=== PATIENT | female | born 1960 | race Caucasian/White ===

== ENCOUNTER 2021-08-08 01:20 | Emergency (ER) | payer OTHER ==
[~2021-08-08] VITALS: Ht 165.1 cm; Wt 86.6 kg
[2021-08-08] MEDS ORDERED: LISI20 PO (01:42)
[2021-08-08 02:28] LABS: Source, Urine Clean Catch
[2021-08-08 02:35] LABS: BASOPHILS ABSOLUTE AUTO 0.07 K/mm3 (0.00-0.23); BASOPHILS PERCENT AUTO 1 % (0-2); Bilirubin, Urine Neg (Neg); Blood, Urine 4+ (Neg); EOSINOPHILS PERCENT AUTO 1 % (0-6); Glucose Qualitative, Urine Neg (Neg); Hematocrit 45.1 % (33.0-51.0); Hemoglobin 15.4 g/dL (11.5-16.0); IMMATURE GRAN ABSOLUTE AUTO 0.03 K/mm3 (0.00-0.10); IMMATURE GRAN PERCENT AUTO 0 % (0-1); Ketones, Urine 1+ (Neg); LYMPHOCYTES ABSOLUTE AUTO 1.44 K/mm3 (0.84-5.20); LYMPHOCYTES PERCENT AUTO 19 % (21-46); Leukocyte Esterase, Urine 3+ (Neg); MONOCYTES ABSOLUTE AUTO 0.44 K/mm3 (0.16-1.47); MONOCYTES PERCENT AUTO 6 % (4-13); Mean Corpuscular HGB 32.9 pg (26.0-34.0); Mean Corpuscular HGB Conc 34.1 g/dL (31.5-36.5); Mean Corpuscular Volume 96 fL (80-100); Mean Platelet Volume 9.6 fL (9.1-12.4); NEUTROPHILS ABSOLUTE AUTO 5.58 K/mm3 (1.96-9.15); NEUTROPHILS PERCENT AUTO 73 % (41-73); Nitrite, Urine Neg (Neg); Platelet Count 231 K/mm3 (150-400); Protein, Urine 1+ (Neg); RDW Coefficient Variation 11.8 % (11.7-14.2); RDW Standard Deviation 41.9 fL (35.1-46.3); Red Blood Cell Count 4.68 M/mm3 (3.80-5.20); Specific Gravity, Urine 1.015 (1.003-1.022); Urobilinogen, Urine NORM (Normal); White Blood Cell Count 7.66 K/mm3 (4.00-11.30)
[2021-08-08 02:40] LABS: Amorphous Light (0-Heavy); Appearance, Urine Hazy (Clear); Bacteria Mod /hpf; Color, Urine Yellow (P-Yellow); Red Blood Cells, Urine 0-2 /hpf (0-2); Squamous Epithelial Cells Few /hpf (Few)
[2021-08-08 02:48] LABS: Alanine Aminotransfer (ALT/SGP 28 U/L (12-78); Albumin, Blood 4.1 g/dL (3.4-5.0); Albumin/Globulin Ratio 1.1 (0.8-1.8); Alk Phos 89 U/L (50-136); Anion Gap 6 mmol/L (6-16); Aspartate Aminotrans (AST/SGOT 26 U/L (12-37); Bilirubin, Total 0.6 mg/dL (0.1-1.0); Blood Urea Nitrogen 12 mg/dL (8-24); Bun/Creatinine Ratio 15.2 (12.0-20.0); CO2, Blood 26 mmol/L (21-32); Calcium, Blood 9.2 mg/dL (8.5-10.1); Chloride, Blood 99 mmol/L (98-108); Creatinine, Blood 0.79 mg/dL (0.40-1.00); Globulin, Blood 3.7 g/dL (2.2-4.0); Glomerular Filtration Rate >60 (60-); Glucose, Blood 107 mg/dL (70-99); Potassium, Blood 4.4 mmol/L (3.5-5.5); Sodium, Blood 131 mmol/L (136-145); Total Protein, Blood 7.8 g/dL (6.4-8.2)
== END 2021-08-08 07:03 | disposition home or self-care (01) ==
LOC: ER 01:20
PROVIDERS: Student in an Organized Health Care Education/Training Program
DX: M54.9 Dorsalgia, unspecified (principal); R31.29 Other microscopic hematuria; F17.210 Nicotine dependence, cigarettes, uncomplicated; I10 Essential (primary) hypertension; Z79.899 Other long term (current) drug therapy; Z88.5 Allergy status to narcotic agent
CPT/HCPCS: 36415; 74176; 80053; 81001; 83690; 85025; 87086; 96374; 96375; 99284-25; A9270; J1885; J2405

== ENCOUNTER 2023-01-10 11:01 | Emergency (ER) | payer OTHER ==
[~2023-01-10] VITALS: Ht 165.1 cm; Wt 88.5 kg
[~2023-01-10 11:01] MED LIST: LISI20 PO
[2023-01-10 12:09] LABS: BASOPHILS ABSOLUTE AUTO 0.04 K/mm3 (0.00-0.23); BASOPHILS PERCENT AUTO 1 % (0-2); EOSINOPHILS ABSOLUTE AUTO 0.02 K/mm3 (0.00-0.68); EOSINOPHILS PERCENT AUTO 0 % (0-6); Hematocrit 38.3 % (33.0-51.0); IMMATURE GRAN ABSOLUTE AUTO 0.03 K/mm3 (0.00-0.10); IMMATURE GRAN PERCENT AUTO 0 % (0-1); LYMPHOCYTES PERCENT AUTO 17 % (21-46); MONOCYTES ABSOLUTE AUTO 0.64 K/mm3 (0.16-1.47); MONOCYTES PERCENT AUTO 9 % (4-13); Mean Corpuscular HGB Conc 33.9 g/dL (31.5-36.5); Mean Corpuscular Volume 100 fL (80-100); Mean Platelet Volume 9.9 fL (9.1-12.4); NEUTROPHILS ABSOLUTE AUTO 5.08 K/mm3 (1.96-9.15); NEUTROPHILS PERCENT AUTO 73 % (41-73); Platelet Count 191 K/mm3 (150-400); RDW Coefficient Variation 12.4 % (11.7-14.2); RDW Standard Deviation 45.3 fL (35.1-46.3); Red Blood Cell Count 3.82 M/mm3 (3.80-5.20); White Blood Cell Count 7.01 K/mm3 (4.00-11.30)
[2023-01-10 12:22] LABS: Albumin, Blood 3.7 g/dL (3.4-5.0); Albumin/Globulin Ratio 1.2 (0.8-1.8); Bilirubin, Total 0.7 mg/dL (0.1-1.0); Bun/Creatinine Ratio 15.8 (12.0-20.0); Calcium, Blood 9.3 mg/dL (8.5-10.1); Creatinine, Blood 1.01 mg/dL (0.40-1.00); Globulin, Blood 3.1 g/dL (2.2-4.0); Potassium, Blood 4.1 mmol/L (3.5-5.5); Total Protein, Blood 6.8 g/dL (6.4-8.2)
[2023-01-10 13:50] LABS: Influenza A, PCR NEGATIVE (NEGATIVE); Influenza B, PCR NEGATIVE (NEGATIVE); Resp Syncytial Virus, PCR NEGATIVE (NEGATIVE); SARS-Cov-2 (COVID-19) PCR, MMC NEGATIVE (NEGATIVE)
[2023-01-10 14:21] LABS: Source, Urine Clean Catch
[2023-01-10 14:30] VITALS: BP 94/50
[2023-01-10 14:32] LABS: Appearance, Urine Hazy (Clear); Bilirubin, Urine Neg (Neg); Blood, Urine Neg (Neg); Color, Urine Amber (P-Yellow); Glucose Qualitative, Urine Neg (Neg); Ketones, Urine 3+ (Neg); Leukocyte Esterase, Urine 1+ (Neg); Nitrite, Urine Neg (Neg); Protein, Urine 1+ (Neg); Specific Gravity, Urine 1.025 (1.003-1.022); Urobilinogen, Urine NORM (Normal)
[2023-01-10 14:43] LABS: Bacteria Many /hpf; Red Blood Cells, Urine 0-2 /hpf (0-2); Squamous Epithelial Cells Mod /hpf (Few)
== END 2023-01-10 17:00 | disposition other institution (70) ==
LOC: ER 11:01
PROVIDERS: Emergency Medicine
DX: E87.1 Hypo-osmolality and hyponatremia (principal); I95.9 Hypotension, unspecified; R63.0 Anorexia; J43.9 Emphysema, unspecified; I10 Essential (primary) hypertension; F17.210 Nicotine dependence, cigarettes, uncomplicated; Z53.29 Procedure and treatment not carried out because of patient's decision for other reasons; Z68.32 Body mass index [BMI] 32.0-32.9, adult; Z20.822 Contact with and (suspected) exposure to COVID-19
CPT/HCPCS: 0241U; 71046; 76705; 80053; 81001; 83690; 84300; 85025; 87086; 93005; 93010; 96360; 99285-25; J7030

== ENCOUNTER 2023-02-16 22:53 | Inpatient (IN) | payer MEDICARE, OTHER ==
[~2023-02-16] VITALS: Ht 165.1 cm; Wt 76.6 kg
[2023-02-16 23:22] LABS: BASOPHILS ABSOLUTE AUTO 0.04 K/mm3 (0.00-0.23); BASOPHILS PERCENT AUTO 1 % (0-2); EOSINOPHILS PERCENT AUTO 0 % (0-6); Hematocrit 30.4 % (33.0-51.0); Hemoglobin 10.4 g/dL (11.5-16.0); IMMATURE GRAN ABSOLUTE AUTO 0.03 K/mm3 (0.00-0.10); IMMATURE GRAN PERCENT AUTO 1 % (0-1); LYMPHOCYTES ABSOLUTE AUTO 0.53 K/mm3 (0.84-5.20); LYMPHOCYTES PERCENT AUTO 8 % (21-46); MONOCYTES ABSOLUTE AUTO 0.46 K/mm3 (0.16-1.47); MONOCYTES PERCENT AUTO 7 % (4-13); Mean Corpuscular HGB 35.9 pg (26.0-34.0); Mean Corpuscular HGB Conc 34.2 g/dL (31.5-36.5); Mean Corpuscular Volume 105 fL (80-100); NEUTROPHILS ABSOLUTE AUTO 5.47 K/mm3 (1.96-9.15); NEUTROPHILS PERCENT AUTO 84 % (41-73); NRBC ABSOLUTE 0.02 K/mm3 (0.00-0.02); NRBC Auto 0.3 /100 WBC (0.0-0.2); Platelet Count 194 K/mm3 (150-400); RDW Standard Deviation 58.4 fL (35.1-46.3); White Blood Cell Count 6.53 K/mm3 (4.00-11.30)
[2023-02-16 23:38] LABS: Albumin, Blood 3.2 g/dL (3.4-5.0); Albumin/Globulin Ratio 1.3 (0.8-1.8); Creatinine, Blood 0.78 mg/dL (0.40-1.00); Globulin, Blood 2.5 g/dL (2.2-4.0); Potassium, Blood 4.5 mmol/L (3.5-5.5); Total Protein, Blood 5.7 g/dL (6.4-8.2)
[2023-02-17] VITALS (15 sets, daily range): BP systolic 83–137; BP diastolic 44–109
[2023-02-17] MEDS ORDERED: LISI5 PO (02:29)
--- NOTE | 2023-02-17 02:30 | NUR ---
ADMISSION REPORT RECIEVED FROM ER NURSE, PATIENT ARRIVES TO PCU 14, NIECE ACCOMPANYING PATIENT. PATIENT SLID OVER TO PCU BED WITH ASSISTANCE OF ER AND PCU STAFF. PATIENT ALERT AND ORIENTED, ABLE TO MAKE NEEDS KNOWN, SLOW TO RESPOND AT TIMES BUT ANSWERS APPROPRIATELY. VITALS STABLE, PATIENT ON RA WITH O2 SAT >90%, PATIENT WILL DESAT TO HIGH 80s BUT STATES SHE DOES NOT WANT TO WEAR OXYGEN SHE DOES NOT WEAR IT AT HOME AND IS ABLE TO RECOVER ON HER OWN. ATTENDS IN PLACE, PATIENT REPORTING INCONTINENCE OF BOWEL AND BLADDER "OVER THE LAST FEW MONTHS". FLUIDS AND PROTONIX GTT INFUSING PER EMAR. PATIENT ORIENTED TO ROOM AND CALL LIGHT SYSTEM. BED IN LOW POSITION.
[2023-02-17 03:30] LABS: Hemoglobin 8.9 g/dL (11.5-16.0); Mean Corpuscular HGB 35.9 pg (26.0-34.0); Mean Corpuscular HGB Conc 34.2 g/dL (31.5-36.5); Mean Corpuscular Volume 105 fL (80-100); Platelet Count 185 K/mm3 (150-400); RDW Coefficient Variation 15.2 % (11.7-14.2); RDW Standard Deviation 58.4 fL (35.1-46.3); Red Blood Cell Count 2.48 M/mm3 (3.80-5.20)
[2023-02-17 03:41] LABS: Bun/Creatinine Ratio 9.9 (12.0-20.0); Calcium, Blood 8.2 mg/dL (8.5-10.1); Creatinine, Blood 0.71 mg/dL (0.40-1.00)
--- NOTE | 2023-02-17 05:52 | NUR ---
SHIFT SUMMARY PATIENT ALERT AND ORIENTED, ABLE TO MAKE NEEDS KNOWN. VITALS STABLE, PATIENT ON RA WITH O2 SAT >90%, WILL DESAT AT TIMES BUT PATIENT IS ABLE TO RECOVER ON HER OWN, DECLINES NEED FOR O2 D/T "NOT BEING ON IT AT HOME". NO SIGN OF DARK STOOLS. ATTENDS IN PLACE. PROTONIX GTT AND MAINTENANCE FLUIDS PER EMAR. NO OTHER SIGNIFICANT CHANGES SINCE ADMISSION, WILL REPORT TO DAY SHIFT RN.
--- NOTE | 2023-02-17 09:19 | NUR ---
SPOKE WITH DR. GUTIERREZ ABOUT PT CURRENT HEART RATE AND BLOOD PRESSURE. INSTRUCTED TO PROVIDE PT WITH A 500-1000CC BOLUS AND EVALUTED PTS RESPONSIVENESS. PT NOTED TO HAVE AN OCCASIONAL COURSE COUGH. PT LUNGS CLEAR BUT DIMINISHED. PT REPORTS TAKING AN OCCASIONAL INHALER, SMOKES HER OWN ROLLED CIGARETTES. STATES SHE DRINKS ABOUT 3 GLASSES OF WINE A DAY. BIOX BETWEEN 91%-95% ON RA WHILE PT AWAKE AND LYING IN BED.
--- NOTE | 2023-02-17 11:13 | NUR ---
02/17/23 1113 Natasha Giraldo SEE ANESTHESIA RECORD FOR SEDATION.
--- NOTE | 2023-02-17 11:25 | NUR ---
CARE NOTE PT DOWN TO DAY SURGERY AT APPROX. 0840. PT STILL IN PROCEDURE. WILL MONITOR AND ASSUME CARE UPON RETURN.
[2023-02-17 13:37] LABS: International Normalized Ratio 1.05
[2023-02-17 14:02] LABS: Percent Saturation 94.4 % (15.0-50.0)
--- NOTE | 2023-02-17 17:08 | NUR ---
SHIFT SUMMARY PT IS ALERT AND ORIENTED X 4, SHE IS ABLE TO MAKE HER NEEDS KNOWN AND HAS ANSWERED QUESTIONS APPROPRIATELY. SPO2 HAS BEEN MAINTAINED >95% VIA RA-1L NC, PT DENIED FEELING SOB. SHE DENIED PAIN DURING SHIFT. BP STABLE, HR SR/ST 100-110'S. PER DAY SURGERY VERONIKA RN REPORT, HR REACHED 120 WHILE IN PROCEDURE. BP STABLE. OCCASIONAL COUGH NOTED. PT HAS BEEN INCONTINENT OF BOTH URINE AND STOOL DURING SHIFT. SHE HAS DENIED FEELINGS OF NAUSEA AND ABD PAIN DURING SHIFT. PT AMBULATED SBA W/ FWW AND GAIT BELT TO DAY SURGERY BED BUT HAS SINCE BEEN BEDREST. BED IS IN LOW, CALL [facility] W/IN REACH, WILL CONTINUE TO MONITOR UNTIL REPORT GIVEN.
[2023-02-17 17:24] LABS: Hematocrit 26.7 % (33.0-51.0)
[2023-02-18] VITALS (7 sets, daily range): BP systolic 97–132; BP diastolic 64–83
[2023-02-18 04:27] LABS: Hematocrit 22.3 % (33.0-51.0); Hemoglobin 7.4 g/dL (11.5-16.0); Mean Corpuscular HGB 35.6 pg (26.0-34.0); Mean Corpuscular HGB Conc 33.2 g/dL (31.5-36.5); Mean Corpuscular Volume 107 fL (80-100); Mean Platelet Volume 9.6 fL (9.1-12.4); Platelet Count 136 K/mm3 (150-400); RDW Coefficient Variation 15.6 % (11.7-14.2); RDW Standard Deviation 60.8 fL (35.1-46.3); Red Blood Cell Count 2.08 M/mm3 (3.80-5.20); White Blood Cell Count 4.09 K/mm3 (4.00-11.30)
[2023-02-18 04:45] LABS: Albumin, Blood 2.3 g/dL (3.4-5.0); Albumin/Globulin Ratio 1.4 (0.8-1.8); Bilirubin, Total 2.6 mg/dL (0.1-1.0); Bun/Creatinine Ratio 8.6 (12.0-20.0); Calcium, Blood 8.1 mg/dL (8.5-10.1); Creatinine, Blood 0.82 mg/dL (0.40-1.00); Globulin, Blood 1.7 g/dL (2.2-4.0); Potassium, Blood 3.7 mmol/L (3.5-5.5)
--- NOTE | 2023-02-18 05:54 | NUR ---
SHIFT SUMMARY ASSUMED CARE OF PT AT 1900. PT IS A/OX4. HEART SOUNDS REGULAR. LUNG SOUNDS DIMINISHED AT BASES. PT HAS NON PRODUCTIVE COUGH. PT SLEPT T/O THE NOC. PT WAS INCONTINENT T/O THE NOC. PT STATES THIS IS NOT NORMAL FOR HER AND STATES "ILL TRY TAKING PEPTO TO SEE IF IT HELPS" WITH THE INCONTINENCE. PT WAS ASKED TO GET UP TO USE BSC TO HAVE BM BUT STATES SHE FEELS WEAK. PT MAY NEED PT/OT EVALUATION BEFORE DC DUE TO LACK OF MOTIVATION TO GET OUT OF BED.
--- NOTE | 2023-02-18 10:21 | NUR ---
UPDATE PER HOSPITALIST ORDERS FOR PT/OT D/T PT HAVING GENERALIZED WEAKNESS.
[2023-02-18 11:33] LABS: Hematocrit 24.3 % (33.0-51.0); Hemoglobin 8.2 g/dL (11.5-16.0)
--- NOTE | 2023-02-18 17:40 | NUR ---
SHIFT SUMMARY PT ALERT AND ORIENTED. CIWA UP TO 12 THIS SHIFT, MEDICATED PER EMAR. DARIELA ROJAS 3. PT REPORTS NO CP OR PRESSURE. HR STABLE. BP STABLE. TACHYCARDIC WITH EXERTION UP TO 140'S. PHYSICIAN NOTIFIED. PT 2 ASSIST UP TO CHAIR. PT'S NIECE EXPRESSES CONCERN REGARDING PT LIVING SITUATION. PT LIVES ALONE AND HAS HAD FREQUENT FALLS. PER MD PT/OT AND SUPERVISOR VARNISH CONSULTED. PT HAD NO SIGNS OF BLEEDING THIS SHIFT. INCONTINENT OF URINE AND STOOL, BRIEF IN PLACE. PT UNAWARE IF BRIEF SOILED, PT CHECKED FREQUENTLY. PT ABLE TO ASSIST IN TURNS IN BED. CALL LIGHT WITHIN REACH. WILL CONT TO MONITOR UNTIL REPORT GIVEN TO NIGHTSHIFT RN.
[2023-02-18 18:07] LABS: ANA DIRECT Negative (Negative); ANTI-DNA (DS) AB QN <1 IU/mL (0-9); RNP ANTIBODIES <0.2 AI (0.0-0.9); SJOGREN'S ANTI-SS-A <0.2 AI (0.0-0.9); SJOGREN'S ANTI-SS-B <0.2 AI (0.0-0.9); SMITH ANTIBODIES <0.2 AI (0.0-0.9)
[2023-02-19] VITALS (23 sets, daily range): BP systolic 64–129; BP diastolic 50–87
[2023-02-19 05:23] LABS: Hematocrit 23.7 % (33.0-51.0); Hemoglobin 7.8 g/dL (11.5-16.0); Mean Corpuscular HGB 35.9 pg (26.0-34.0); Mean Corpuscular HGB Conc 32.9 g/dL (31.5-36.5); Mean Corpuscular Volume 109 fL (80-100); Mean Platelet Volume 9.8 fL (9.1-12.4); Platelet Count 133 K/mm3 (150-400); RDW Coefficient Variation 15.7 % (11.7-14.2); RDW Standard Deviation 62.9 fL (35.1-46.3); Red Blood Cell Count 2.17 M/mm3 (3.80-5.20); White Blood Cell Count 3.41 K/mm3 (4.00-11.30)
[2023-02-19 05:35] LABS: Albumin, Blood 2.4 g/dL (3.4-5.0); Anion Gap 5 mmol/L (6-16); Blood Urea Nitrogen 7 mg/dL (8-24); CO2, Blood 31 mmol/L (21-32); Calcium, Blood 8.5 mg/dL (8.5-10.1); Chloride, Blood 101 mmol/L (98-108); Creatinine, Blood 0.78 mg/dL (0.40-1.00); Glomerular Filtration Rate 86 (60-); Glucose, Blood 84 mg/dL (70-99); Phosphorus, Blood 2.1 mg/dL (2.5-4.9); Potassium, Blood 3.4 mmol/L (3.5-5.5); Sodium, Blood 137 mmol/L (136-145)
--- NOTE | 2023-02-19 06:24 | NUR ---
SHIFT SUMMARY PT A&O X4. VSS THROUGHOUT SHIFT. PT ANXIOUS AT TIMES AND FORGETFUL INTERMITTENTLY. CIWA SCORES RANGING FROM 7 - 14. MEDICATION PER EMAR. PT DENIES SOB, CP OR PRESSURE. REPORTS MILD HEADACHES. TREMORS VISIBLE MOST TIMES AND PT HEARING "RINGING IN EARS". AT TIMES PT TALKING ABOUT THINGS THAT AREN'T THERE AND REPORTS WAKING UP "FORGETING WHERE I AM". PT ON RA MOST OF THE NIGHT, HOWEVER WHEN PT FINALLY FELL ASLEEP, SPO2 DECREASED TO 85%; 1 - 2 L VIA NC PLACED ON PT, SPO2 MAINTAINED >94% WITH THIS. NO BM THIS SHIFT. PT INCONTINENT OF URINE, ATTENDS IN PLACE AND CHANGED PRN. PT FINALLY ABLE TO GET SOME REST AND CURRENTLY IS SLEEPING. CALL LIGHT IN REACH. WILL UPDATE ONCOMING RN
[2023-02-19 07:08] LABS: HBSAG SCREEN Negative (Negative); HCV AB Non Reactive (Non Reactive); HEP A AB, IGM Negative (Negative); HEP B CORE AB, IGM Negative (Negative)
[2023-02-19 10:08] LABS: HIV AB/P24 AG SCREEN Non Reactive (Non Reactive)
--- NOTE | 2023-02-19 11:27 | NUR ---
AM NOTE/UPDATE: ASSUMED CARE OF PT THIS AM APPROX 0715 AFTER RECEIVING REPORT. PT A&Ox3-4, COOPERATIVE W/CARE, ABLE TO MAKE NEEDS KNOWN. AFIB ON MONITOR SINCE APPROX 0630, DILTIAZEM GTT INITIATED PER ORDERS, PT CONVERTS TO SR THEN BACK TO AFIB APPROX 0853, THEN CONVERTED TO A JUNCTIONAL RHYTHM AT APPROX 1020, RATE 80s-90s, PROVIDER AWARE. PT REPORTED MILD SOB THIS AM, DENIES WORSENING SOB AT THIS TIME, O2 SATS >92% ON 1 L/MIN NC. CIWAs SCORED PRN AND PT TREATED ACCORDINGLY, HAS RECEIVED ONE DOSE THIS AM, SEE EMAR. AT THIS TIME, PT RESTING QUIETLY IN BED W/CALL LIGHT IN REACH. WILL CONTINUE TO MONITOR AND TREAT ACCORDINGLY.
[2023-02-19 13:08] LABS: T-TRANSGLUTAMINASE (TTG) IGA <2 U/mL (0-3)
--- NOTE | 2023-02-19 16:48 | NUR ---
SHIFT SUMMARY: NO ACUTE CHANGES SINCE AM NOTE. PT ALERT, ORIENTED x3-4, COOPERATIVE W/CARE. PT ABLE TO VERBALIZE NEEDS, SUCH WHEN SHE IS FEELING ANXIOUS. CIWAs SCORED AND PT TREATED ACCORDINGLY x2 THIS SHIFT. EGG CRATE APPLIED TO BED FOR COMFORT. PT DENIES SOB, O2 SATS >92% ON RA OR 1 L/MIN NC. PT CONTINUES IN SIN RHYTHM, RATE HIGH 70s - LOW 90s. PO DIGOXIN ADMINISTERED PER ORDERS, DILTIAZEM GTT ON STANDBY. ECHO IN PROGRESS AT BEDSIDE. WILL CONTINUE TO MONITOR AND TREAT ACCORDINGLY UNTIL CHANGE OF SHIFT.
[2023-02-20] VITALS (7 sets, daily range): BP systolic 106–123; BP diastolic 63–97
--- NOTE | 2023-02-20 05:37 | NUR ---
SHIFT SUMMARY PT A&O X 3 - 4; NO ACUTE CHANGES. PT INTERMITTENTLY CONFUSED WHEN AWAKENING, FORGETTING "WHERE SHE IS" BUT EASILY REORIENTED. VSS THROUHGOUT SHIFT. PT REMAINS IN SR W/HR IN 70 - 80'S. NO CHANGES OR EPISODE RELATED TO RHYTHM OR RATE CHANGE. PT ON RA WHILE AWAKE, PLACED ON 1 -2 L NC, PRN WHEN ASLEEP. CIWA RANGING FROM 8 - 14. MEDICATION PER EMAR. PT RESTLESS AT TIMES, MELATONIN ADMINISTERED PER EMAR, WHICH SEEMED TO HELP PT FINALLY REST. PT STILL INCONTINENT; ATTENDS CHANGED PRN. PT HAD ONE BM THIS SHIFT THAT WAS LOOSE AND BROWN IN COLOR. PT REPOSITIONING SELF IN BED, OCCASSIONAL ASSISTANCE FOR BOOSTING. PT ENCOURAGED TO TRY AND BOOST AND PULL SELF UP IN BED. PT DID WELL WITH THIS. NO ACUTE CHANGES W/PT. WILL UPDATE ONCOMING RN
[2023-02-20 10:00] LABS: Hematocrit 28.5 % (33.0-51.0); Hemoglobin 9.2 g/dL (11.5-16.0); Mean Corpuscular HGB 35.9 pg (26.0-34.0); Mean Corpuscular HGB Conc 32.3 g/dL (31.5-36.5); Mean Corpuscular Volume 111 fL (80-100); Mean Platelet Volume 9.3 fL (9.1-12.4); Platelet Count 145 K/mm3 (150-400); RDW Coefficient Variation 16.8 % (11.7-14.2); RDW Standard Deviation 65.4 fL (35.1-46.3); Red Blood Cell Count 2.56 M/mm3 (3.80-5.20); White Blood Cell Count 2.64 K/mm3 (4.00-11.30)
[2023-02-20 10:40] LABS: Magnesium, Blood 1.9 mg/dL (1.6-2.4)
[2023-02-20 10:42] LABS: Albumin, Blood 2.6 g/dL (3.4-5.0); Albumin/Globulin Ratio 1.1 (0.8-1.8); Bilirubin, Total 2.6 mg/dL (0.1-1.0); Bun/Creatinine Ratio 8.4 (12.0-20.0); Calcium, Blood 9.3 mg/dL (8.5-10.1); Creatinine, Blood 0.83 mg/dL (0.40-1.00); Globulin, Blood 2.4 g/dL (2.2-4.0); Potassium, Blood 3.7 mmol/L (3.5-5.5)
[2023-02-20 12:12] LABS: ACTIN (SMOOTH MUSCLE) ANTIBODY 5 Units (0-19); MITOCHONDRIAL (M2) ANTIBODY <20.0 Units (0.0-20.0)
--- NOTE | 2023-02-20 17:16 | NUR ---
SHIFT SUMMARY PT IS A&O X4. VSS. SPO2 >92% ON RA. SINUS RHYHTM 90'S. PT DENIES ANY PAIN AT THIS TIME. CIWAs HAVE BEEN 0 ALL SHIFT. PT/OT WORKED W/ PT TODAY ON GETTING 0UT OF BED. PT UP IN CHAIR FOR MEALS. PT REQUIRING ENCOURAGEMENT FOR ANY TIME OUT OF BED. BED IN LOWEST POSITION AND CALL LIGHT IN REACH.
[2023-02-21] VITALS (9 sets, daily range): BP systolic 93–139; BP diastolic 61–99
--- NOTE | 2023-02-21 01:19 | NUR ---
PATIENT UPDATE PATIENT CONVERTED TO AFIB RVR AT 0048. PATIENT DENIED SYMPTOMS. BP STABLE. SPO2 >92% ON RA. EKG RECEIVED, CONFIRMING AFIB RVR. CALL PLACED TO MD MACHADO REGARDING CHANGE AND FOR EKG ORDER. PATIENT GIVEN 5MG LOPRESSOR PUSH AT 0108. PATIENT NOTED TO CONVERT BACK TO SINUS RHYTHM WITH HR 70'S AT 0119. BP REMAINS STABLE. PATIENT CONTINUES TO DENY S/S. THIS RN WILL CONTINUE TO MONITOR.
[2023-02-21 04:36] LABS: Hematocrit 25.8 % (33.0-51.0); Hemoglobin 8.3 g/dL (11.5-16.0); Mean Corpuscular HGB 35.9 pg (26.0-34.0); Mean Corpuscular HGB Conc 32.2 g/dL (31.5-36.5); Mean Corpuscular Volume 112 fL (80-100); Mean Platelet Volume 9.4 fL (9.1-12.4); Platelet Count 135 K/mm3 (150-400); RDW Coefficient Variation 17.3 % (11.7-14.2); RDW Standard Deviation 68.3 fL (35.1-46.3); Red Blood Cell Count 2.31 M/mm3 (3.80-5.20); White Blood Cell Count 2.58 K/mm3 (4.00-11.30)
--- NOTE | 2023-02-21 04:38 | NUR ---
SHIFT SUMMARY SEE PREVIOUS NOTE. PATIENT CONTINUES TO SWITCH BACK/FORTH FROM SR TO AFIB SINCE 030. AFIB WITH HR 90-100'S. SR WITH HR 70'S. SBP 90'S AT THIS TIME. MAP >65. PATIENT APPEARS PALE AND LETHARGIC DURING THIS SHIFT. ORIENTED FULLY AND ABLE TO BE ROUSED WITH VERBAL STIMULI. SPO2 >92% ON RA-2L. PATIENT NOTED TO BRIEFLY DESAT TO 85-86% WHILE SLEEPING ON RA; DENIES BERNICE. AFEBRILE. PPP. INCONTINENT OF B/B. ATTENDS IN PLACE. BED IN LOWEST POSITION AND CALL LIGHT WITHIN REACH. THIS RN WILL CONTINUE TO MONITOR UNTIL SHIFT CHANGE AT 0700.
[2023-02-21 05:16] LABS: Albumin, Blood 2.1 g/dL (3.4-5.0); Bun/Creatinine Ratio 11.5 (12.0-20.0); Calcium, Blood 9.1 mg/dL (8.5-10.1); Creatinine, Blood 0.78 mg/dL (0.40-1.00); Globulin, Blood 2.1 g/dL (2.2-4.0); Potassium, Blood 3.8 mmol/L (3.5-5.5); Thyroid Stimulating Hormone 1.44 uIU/mL (0.360-4.800); Total Protein, Blood 4.2 g/dL (6.4-8.2)
--- NOTE | 2023-02-21 14:04 | NUR ---
Pt. is resting in bed but reponds when I enter the room. Pt. is pleasant, but displays evidence of being weak and somnolent. Facilitate a life review and consider matters of david and belief. Pt. displays evidence of being aware and fully engaged in our conversation. Prayed for pt. and Pt. verbalized gratiturde for the spiritual care visit.
--- NOTE | 2023-02-21 17:39 | NUR ---
TRANSFER TO SURGICAL PT MEDICAL W/ TELE STATUS. A&O X4. PT W/ FLAT AFFECT, REQUIRING ENCOURAGEMENT FOR ALL ADLs/ACTIVITY D/T PT PREFERENCE TO REMAIN IN BED. PT VSS. SPO2 > 92% ON RA. MONITOR SHOWING SR, HR 80s-90s. PT 1-2 PERSON ASSIST OOB W/ FWW & GB. PT W/ NO EVENTS THIS SHIFT. PT W/ EPISODES OF CONTINENCE & INCONTINENCE, WEARING ATTENDS OR USING BSC. PRN TAYLER CARE/ATTENDS CHANGES PROVIDED. PT ONLY TAKING FEW BITES OR SIPS FOR MEALS. PT STATING SHE DOES NOT NORMALLY EAT BREAFAST, & STATES ONLY EATING "SMALL AMOUNTS TWICE A DAY." REPORT GIVEN TO ACCEPTING RN. PT TAKEN TO RM 226 BY BED W/ BELONGINGS @ APPROX 1740.
--- NOTE | 2023-02-21 17:40 | NUR ---
ARRIVED TO ROOM 226 TO ROOM VIA BED FROM PCU. PATIENT A&O X4. ASSISTED TO CHAIR FOR DINNER. ORIENTED TO ROOM AND CALL LIGHT. WILL REPORT TO ONCOMING RN AT 1900.
--- NOTE | 2023-02-21 19:28 | NUR ---
NO ACUTE CHANGES SINCE ARRIVAL TO UNIT. REPORT GIVEN TO MITZY PARADA. CALL LIGHT IN REACH.
[2023-02-22 03:58] VITALS: BP 129/85
--- NOTE | 2023-02-22 04:04 | NUR ---
SHIFT SUMMARY VSS. PT SLEPT ON AND OFF T/O THE NIGHT. NO ACUTE EVENTS NOTED. PT TOLLERATED MINIMAL PO INTAKE. VOIDING W/O DIFFICULTY, NO BM'S NOTED. NO C/O N/V. PT DID NOT GET OOB. TELE HAS READ SR 70-80'S T/O THE NIGHT. PLAN FOR PT TO CONTINUE TO WORK WITH PT/OT, ADVANCE DIET, AND D/C HOME WITH HOME HEALTH. THE PATIENT IS CURRENTLY RESTING, LAB AT BEDSIDE, CALL LIGHT IN REACH
[2023-02-22 05:14] LABS: Hematocrit 28.3 % (33.0-51.0); Mean Corpuscular HGB 35.6 pg (26.0-34.0); Mean Corpuscular HGB Conc 31.8 g/dL (31.5-36.5); Mean Corpuscular Volume 112 fL (80-100); Mean Platelet Volume 9.6 fL (9.1-12.4); Platelet Count 132 K/mm3 (150-400); RDW Coefficient Variation 18.1 % (11.7-14.2); RDW Standard Deviation 72.9 fL (35.1-46.3); Red Blood Cell Count 2.53 M/mm3 (3.80-5.20); White Blood Cell Count 2.44 K/mm3 (4.00-11.30)
[2023-02-22 05:39] LABS: Albumin, Blood 2.2 g/dL (3.4-5.0); Albumin/Globulin Ratio 0.9 (0.8-1.8); Bilirubin, Total 1.6 mg/dL (0.1-1.0); Bun/Creatinine Ratio 15.8 (12.0-20.0); Calcium, Blood 8.8 mg/dL (8.5-10.1); Creatinine, Blood 0.82 mg/dL (0.40-1.00); Globulin, Blood 2.5 g/dL (2.2-4.0); Magnesium, Blood 1.5 mg/dL (1.6-2.4); Potassium, Blood 3.6 mmol/L (3.5-5.5); Total Protein, Blood 4.7 g/dL (6.4-8.2)
[2023-02-22 07:31] VITALS: BP 97/62
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
[2023-02-22 13:08] VITALS: BP 109/81
[2023-02-22 15:32] VITALS: BP 115/87
--- NOTE | 2023-02-22 18:07 | NUR ---
SHIFT SUMMARY NO ACUTE CHANGES T/O SHIFT. VSS, O2 >88% ON RA. WHEEZES STILL PRESENT ON AUSCULTATION, EDUCATED ON THE USE OF THE INCENTIVE SPIROMETER AND HAS BEEM UTILIZING IT PERIODICALLY. TOLERATING PO INTAKE AND VOIDING APPROPRIATELY. PT HAS BEEN EDUCATED ON THE USE OF HER CALL LIGHT AND CALLS APPROPRIATELY. WILL REPORT TO HEAD BANQUET WAITRESS RN.
[2023-02-22 19:27] VITALS: BP 115/82
[2023-02-23 03:19] VITALS: BP 91/65
[2023-02-23 04:39] LABS: Hematocrit 27.4 % (33.0-51.0); Hemoglobin 8.6 g/dL (11.5-16.0); Mean Corpuscular HGB 35.1 pg (26.0-34.0); Mean Corpuscular HGB Conc 31.4 g/dL (31.5-36.5); Mean Corpuscular Volume 112 fL (80-100); Mean Platelet Volume 9.8 fL (9.1-12.4); NRBC ABSOLUTE 0.02 K/mm3 (0.00-0.02); NRBC Auto 0.3 /100 WBC (0.0-0.2); Platelet Count 141 K/mm3 (150-400); RDW Coefficient Variation 18.6 % (11.7-14.2); Red Blood Cell Count 2.45 M/mm3 (3.80-5.20); White Blood Cell Count 5.89 K/mm3 (4.00-11.30)
[2023-02-23 05:05] LABS: Albumin/Globulin Ratio 0.8 (0.8-1.8); Bilirubin, Total 1.6 mg/dL (0.1-1.0); Bun/Creatinine Ratio 15.3 (12.0-20.0); Calcium, Blood 8.3 mg/dL (8.5-10.1); Creatinine, Blood 0.72 mg/dL (0.40-1.00); Globulin, Blood 2.4 g/dL (2.2-4.0); Potassium, Blood 3.9 mmol/L (3.5-5.5); Total Protein, Blood 4.4 g/dL (6.4-8.2)
--- NOTE | 2023-02-23 05:49 | NUR ---
SHIFT SUMMARY ADMIT DAY 6 FOR MELENA. INCONT OF BOWEL AND BLADDER, NO BLACK STOOL THIS SHIFT, ATTENDS CHANGED 3X W/ SMEAR OF BROWN STOOL VISUALIZED. NO C/O PAIN. CIWA 2, NO EPISODES OF AFIB/ RVR. VSS, HR 95/SR PER TELE, MINIMAL PO INTAKE, PT TALKED ABOUT LOSS OF AND THE FEELING OF LOSS SHE HAS BEEN EXPERIENCING. EDUCATED ON DEPRESSION MEDS AND COMMUNITY RESOURCES. PT ACKNOWLEDGED/ ACCEPTED DNR STATUS BUT IS NOT INTERESTED IN HOSPICE AT THIS TIME. PT PLANS TO RETURN HOME AT TIME OF DISCHARGE. PT SLEPT T/O NIGHT, NO DISTRESS, AND CALL LIGHT W/IN REACH AND USED APPROPRIATELY.
[2023-02-23 07:06] VITALS: BP 97/73
[2023-02-23] MEDS ORDERED: Diflucan100 MG PO (13:02)
[2023-02-23] MEDS ORDERED: FOLI1 PO (13:03)
[2023-02-23] MEDS ORDERED: MIRT30 PO (13:05)
[2023-02-23] MEDS ORDERED: Nicoderm Cq1 EAC1 TD (13:07)
[2023-02-23] MEDS ORDERED: PANT40 PO (13:08)
[2023-02-23] MEDS ORDERED: B-1100 M1 PO (13:09)
[2023-02-23 14:35] VITALS: BP 125/91
--- NOTE | 2023-02-23 16:20 | NUR ---
DISCHARGE PT IS A/O X4. VSS, HR SR @80'S. UP W/ FWW AND 1P ASSIST. TOLERATING PO INTAKE AND VOIDING APPROPRIATELY, DENIES N/V. PT HAS EXPRESSED READINESS TO GO HOME. SHE WAS PROVIDED DISCHARGE INSTRUCTIONS AND WAS RECEPTIVE, RX SENT TO [facility]. SHE PLANS TO FOLLOW UP WITH HER PCP, DR. GUPTA. WITHIN 2 WEEKS. PT WILL BE TRANSPORTED BY [facility] TRANSPORT SERVICE. CURRENTLY WAITING FOR TRANSPORT TO ARRIVE.
--- NOTE | 2023-02-23 17:00 | NUR ---
UPDATE- DISCHARGE PT WAS ESCORTED OUT BY HOSPITAL STAFF VIA WHEELCHAIR AND TRANSPORTED HOME BY [facility] TRANSPORT. PT STABLE AT TIME OF DISCHARGE.
== END 2023-02-23 16:40 | disposition home or self-care (01) | DRG 378 ==
LOC: ER 22:53 → PCU 22:54 → SURS 02-21 17:39
PROVIDERS: Internal Medicine; Student in an Organized Health Care Education/Training Program; ADMIT Internal Medicine
PROC: 0DB78ZX Excision of Stomach, Pylorus, Via Natural or Artificial Opening Endoscopic, Diagnostic (ICD-10-PCS; 2023-02-17)
PROC: 0DB28ZX Excision of Middle Esophagus, Via Natural or Artificial Opening Endoscopic, Diagnostic (ICD-10-PCS; 2023-02-17)
PROC: 0DB48ZX Excision of Esophagogastric Junction, Via Natural or Artificial Opening Endoscopic, Diagnostic (ICD-10-PCS; 2023-02-17)
PROC: 0DB98ZX Excision of Duodenum, Via Natural or Artificial Opening Endoscopic, Diagnostic (ICD-10-PCS; principal; 2023-02-17 11:30)
DX: K25.4 Chronic or unspecified gastric ulcer with hemorrhage (principal); B37.81 Candidal esophagitis; D62 Acute posthemorrhagic anemia; F10.239 Alcohol dependence with withdrawal, unspecified; E87.1 Hypo-osmolality and hyponatremia; E46 Unspecified protein-calorie malnutrition; K26.4 Chronic or unspecified duodenal ulcer with hemorrhage; I10 Essential (primary) hypertension; K76.0 Fatty (change of) liver, not elsewhere classified; Z68.28 Body mass index [BMI] 28.0-28.9, adult; F17.210 Nicotine dependence, cigarettes, uncomplicated; E86.0 Dehydration; S09.90XA Unspecified injury of head, initial encounter; W06.XXXA Fall from bed, initial encounter; R63.4 Abnormal weight loss; D53.9 Nutritional anemia, unspecified; S80.10XA Contusion of unspecified lower leg, initial encounter; Y92.009 Unspecified place in unspecified non-institutional (private) residence as the place of occurrence of the external cause; K44.9 Diaphragmatic hernia without obstruction or gangrene; K22.2 Esophageal obstruction; G62.9 Polyneuropathy, unspecified; E83.110 Hereditary hemochromatosis; E83.42 Hypomagnesemia; I48.91 Unspecified atrial fibrillation; F32.A Depression, unspecified; Z90.710 Acquired absence of both cervix and uterus; Z71.41 Alcohol abuse counseling and surveillance of alcoholic; Z88.8 Allergy status to other drugs, medicaments and biological substances; Z79.811 Long term (current) use of aromatase inhibitors
CPT/HCPCS: 36415; 76705; 80048; 80053; 80069; 80074; 81256; 82103; 82390; 82607; 82728; 82746; 83540; 83550; 83735; 84443; 84484; 85014; 85018; 85025; 85027; 85610; 86015; 86225; 86235; 86364; 86376; 86381; 87389; 88305; 88312; 88342; 93005; 93010; 93306; 96361; 96365; 96367; 96374; 96375; 96376; 97110; 97116; 97162; 97166; 97530; 97535; 99285-25; A9270; C9113; G0378; J2060; J2250; J2704; J3411; J3475; J7030; J7050; J7120

== ENCOUNTER 2023-03-05 09:39 | Emergency (ER) | payer MEDICARE, OTHER ==
[~2023-03-05] VITALS: Ht 162.6 cm; Wt 74.8 kg
[~2023-03-05 09:39] MED LIST changes: +B-1100 M1 PO; +Diflucan100 MG PO; +FOLI1 PO; +LISI5 PO; +MIRT30 PO; +Nicoderm Cq1 EAC1 TD; +PANT40 PO
[2023-03-05 10:24] LABS: BASOPHILS ABSOLUTE AUTO 0.07 K/mm3 (0.00-0.23); BASOPHILS PERCENT AUTO 1 % (0-2); EOSINOPHILS ABSOLUTE AUTO 0.02 K/mm3 (0.00-0.68); EOSINOPHILS PERCENT AUTO 0 % (0-6); Hematocrit 37.8 % (33.0-51.0); Hemoglobin 11.8 g/dL (11.5-16.0); IMMATURE GRAN ABSOLUTE AUTO 0.04 K/mm3 (0.00-0.10); IMMATURE GRAN PERCENT AUTO 1 % (0-1); LYMPHOCYTES ABSOLUTE AUTO 0.92 K/mm3 (0.84-5.20); LYMPHOCYTES PERCENT AUTO 15 % (21-46); MONOCYTES ABSOLUTE AUTO 0.29 K/mm3 (0.16-1.47); MONOCYTES PERCENT AUTO 5 % (4-13); Mean Corpuscular HGB Conc 31.2 g/dL (31.5-36.5); Mean Corpuscular Volume 112 fL (80-100); Mean Platelet Volume 9.9 fL (9.1-12.4); NEUTROPHILS ABSOLUTE AUTO 4.79 K/mm3 (1.96-9.15); NEUTROPHILS PERCENT AUTO 78 % (41-73); Platelet Count 373 K/mm3 (150-400); RDW Coefficient Variation 15.3 % (11.7-14.2); RDW Standard Deviation 64.4 fL (35.1-46.3); Red Blood Cell Count 3.37 M/mm3 (3.80-5.20); White Blood Cell Count 6.13 K/mm3 (4.00-11.30)
[2023-03-05 10:30] VITALS: BP 115/82
[2023-03-05 10:31] LABS: Source, Urine Straight Cath
[2023-03-05 10:34] LABS: Albumin, Blood 2.6 g/dL (3.4-5.0); Albumin/Globulin Ratio 0.8 (0.8-1.8); Bilirubin, Total 1.1 mg/dL (0.1-1.0); Bun/Creatinine Ratio 8.2 (12.0-20.0); Calcium, Blood 9.2 mg/dL (8.5-10.1); Creatinine, Blood 0.85 mg/dL (0.40-1.00); Globulin, Blood 3.2 g/dL (2.2-4.0); Magnesium, Blood 1.8 mg/dL (1.6-2.4); Total Protein, Blood 5.8 g/dL (6.4-8.2)
[2023-03-05 10:39] LABS: Bilirubin, Urine Neg (Neg); Blood, Urine 3+ (Neg); Glucose Qualitative, Urine Neg (Neg); Ketones, Urine 1+ (Neg); Leukocyte Esterase, Urine Neg (Neg); Nitrite, Urine Neg (Neg); Protein, Urine 1+ (Neg); Urobilinogen, Urine 1+ (Normal)
[2023-03-05 10:55] LABS: Appearance, Urine Hazy (Clear); Bacteria Few /hpf; Color, Urine Yellow (P-Yellow); Squamous Epithelial Cells Few /hpf (Few); White Blood Cells, Urine 0-2 /hpf (0-5)
[2023-03-05 10:56] LABS: Amorphous Light (0-Heavy); Epithelial Cell Casts 0-2 /lpf (0)
[2023-03-05] MEDS ORDERED: MIRALAX17 GM PO (14:18)
== END 2023-03-05 15:51 | disposition home or self-care (01) ==
LOC: ER 09:39
PROVIDERS: Student in an Organized Health Care Education/Training Program
DX: R53.1 Weakness (principal); K59.00 Constipation, unspecified; E87.0 Hyperosmolality and hypernatremia; E86.0 Dehydration; Z88.8 Allergy status to other drugs, medicaments and biological substances; Z88.5 Allergy status to narcotic agent; Z79.899 Other long term (current) drug therapy; I11.0 Hypertensive heart disease with heart failure; I50.9 Heart failure, unspecified; G47.00 Insomnia, unspecified; I48.91 Unspecified atrial fibrillation; F17.210 Nicotine dependence, cigarettes, uncomplicated
CPT/HCPCS: 51701; 71045; 74177; 80053; 81001; 83735; 83880; 85025; 87086; 93005; 93010; 96360; 97116; 97162; 97530; 99285-25; A9270; J7030; Q9967

== ENCOUNTER 2023-03-09 11:09 | Emergency (ER) | payer MEDICARE, OTHER ==
[~2023-03-09] VITALS: Ht 157.5 cm; Wt 54.4 kg
[~2023-03-09 11:09] MED LIST changes: +MIRALAX17 GM PO
[2023-03-09 13:37] VITALS: BP 116/80
== END 2023-03-10 11:55 | disposition home or self-care (01) ==
LOC: ER 11:09
DX: R53.1 Weakness (principal); R29.6 Repeated falls; Z88.8 Allergy status to other drugs, medicaments and biological substances; Z88.5 Allergy status to narcotic agent; Z79.899 Other long term (current) drug therapy; I11.0 Hypertensive heart disease with heart failure; I50.9 Heart failure, unspecified; G47.00 Insomnia, unspecified; I48.91 Unspecified atrial fibrillation; F17.210 Nicotine dependence, cigarettes, uncomplicated
CPT/HCPCS: 99284

== ENCOUNTER 2023-03-09 17:01 | Emergency (ER) | payer MEDICARE, OTHER ==
[~2023-03-09] VITALS: Ht 165.1 cm; Wt 65.8 kg
[2023-03-09 17:24] VITALS: BP 115/88
== END 2023-03-09 19:58 | disposition home or self-care (01) ==
LOC: ER 17:01
DX: F10.10 Alcohol abuse, uncomplicated (principal); Z88.8 Allergy status to other drugs, medicaments and biological substances; Z88.5 Allergy status to narcotic agent; Z79.899 Other long term (current) drug therapy; I11.0 Hypertensive heart disease with heart failure; I50.9 Heart failure, unspecified; G47.00 Insomnia, unspecified; I48.91 Unspecified atrial fibrillation; F17.210 Nicotine dependence, cigarettes, uncomplicated
CPT/HCPCS: 99284

== ENCOUNTER 2023-03-15 15:15 | Inpatient (IN) | payer MEDICARE, OTHER ==
[~2023-03-15] VITALS: Ht 167.6 cm; Wt 73.6 kg
[2023-03-15] MEDS ORDERED: CHLO25 PO (15:35)
[2023-03-15] MEDS ORDERED: VITAMIN B-1100 M1 PO (15:35)
[2023-03-15 15:39] LABS: BASOPHILS ABSOLUTE AUTO 0.03 K/mm3 (0.00-0.23); BASOPHILS PERCENT AUTO 1 % (0-2); EOSINOPHILS ABSOLUTE AUTO 0.07 K/mm3 (0.00-0.68); EOSINOPHILS PERCENT AUTO 2 % (0-6); Hematocrit 31.3 % (33.0-51.0); IMMATURE GRAN ABSOLUTE AUTO 0.02 K/mm3 (0.00-0.10); IMMATURE GRAN PERCENT AUTO 0 % (0-1); LYMPHOCYTES ABSOLUTE AUTO 0.91 K/mm3 (0.84-5.20); LYMPHOCYTES PERCENT AUTO 20 % (21-46); MONOCYTES ABSOLUTE AUTO 0.47 K/mm3 (0.16-1.47); MONOCYTES PERCENT AUTO 10 % (4-13); Mean Corpuscular HGB 33.8 pg (26.0-34.0); Mean Corpuscular HGB Conc 31.9 g/dL (31.5-36.5); Mean Corpuscular Volume 106 fL (80-100); NEUTROPHILS PERCENT AUTO 67 % (41-73); Platelet Count 348 K/mm3 (150-400); RDW Coefficient Variation 13.9 % (11.7-14.2); RDW Standard Deviation 53.8 fL (35.1-46.3); Red Blood Cell Count 2.96 M/mm3 (3.80-5.20)
[2023-03-15 16:00] LABS: Ethanol (Alcohol), Blood, Med <3 mg/dL; Magnesium, Blood 1.5 mg/dL (1.6-2.4)
[2023-03-15 16:01] LABS: Alanine Aminotransfer (ALT/SGP 59 U/L (12-78); Albumin, Blood 2.1 g/dL (3.4-5.0); Albumin/Globulin Ratio 0.8 (0.8-1.8); Alk Phos 157 U/L (50-136); Anion Gap 4 mmol/L (6-16); Aspartate Aminotrans (AST/SGOT 60 U/L (12-37); Bilirubin, Total 0.6 mg/dL (0.1-1.0); Blood Urea Nitrogen 13 mg/dL (8-24); Bun/Creatinine Ratio 16.9 (12.0-20.0); CO2, Blood 29 mmol/L (21-32); Calcium, Blood 8.4 mg/dL (8.5-10.1); Chloride, Blood 112 mmol/L (98-108); Creatinine, Blood 0.77 mg/dL (0.40-1.00); Globulin, Blood 2.5 g/dL (2.2-4.0); Glomerular Filtration Rate 88 (60-); Glucose, Blood 111 mg/dL (70-99); Potassium, Blood 3.4 mmol/L (3.5-5.5); Sodium, Blood 145 mmol/L (136-145); Total Protein, Blood 4.6 g/dL (6.4-8.2)
[2023-03-15 16:51] LABS: Source, Urine Straight Cath
[2023-03-15 16:54] LABS: International Normalized Ratio 1.08; Prothrombin Time Results 11.3 Sec (9.7-11.5)
[2023-03-15 17:01] LABS: Appearance, Urine Turbid (Clear); Blood, Urine 1+ (Neg); Color, Urine Yellow (P-Yellow); Glucose Qualitative, Urine Neg (Neg); Ketones, Urine 1+ (Neg); Leukocyte Esterase, Urine 2+ (Neg); Nitrite, Urine Neg (Neg); Protein, Urine 2+ (Neg); Specific Gravity, Urine 1.025 (1.003-1.022); Urobilinogen, Urine 2+ (Normal)
[2023-03-15 17:16] LABS: Bilirubin, Urine 1+ (Neg)
[2023-03-15 17:28] LABS: White Blood Cells, Urine 50-100 /hpf (0-5)
[2023-03-15 17:31] LABS: Bacteria Many /hpf; Hyaline Casts 0-2 /lpf (0-2); Squamous Epithelial Cells Mod /hpf (Few)
[2023-03-15] MEDS ORDERED: FURO20 PO (23:05)
[2023-03-15] MEDS ORDERED: POTA10T PO (23:07)
[2023-03-15 23:58] VITALS: BP 141/103
[2023-03-16 02:16] LABS: Free Thyroxine 1.2 ng/dL (0.70-1.60); Thyroid Stimulating Hormone 2.12 uIU/mL (0.360-4.800)
--- NOTE | 2023-03-16 04:33 | NUR ---
SHIFT SUMMARY NOC ADMIT FROM ED WITH DX OF AMS/UTI. PT HAS HX OF ETOH AND LAST REPORTED DRINK WAS 1 MONTH AGO. PT HAS BEEN EASILY REDIRECTABLE WHEN EPISODES OF INCREASED CONFUSION MANIFEST. PT HAD FALL AT HOME AND WAS ON GROUND FOR ESTIMATED 24 HOUR PERIOD. PT MAGNESIUM, POTASSIUM, AND ALBUMIN WERE ALL LOW AND ARE BEING REPLACED VIA IVPB. PT HAS ORDER FOR D5W IN 0.45 NS TO BE INFUSED @ 100 ML/HR. PT IS ON TELE RUNNING NSR @ 86 BPM. PT IS ON CIWA PROTOCOL FOR POSSIBLE ALCOHOL WITHDRAWAL WITH FIRST CIWA IN ED SCORED 11. PT HAS CIWA RX ON BOARD.PT IS CURRENT PPD SMOKER NICOTINE PATCH ORDERED. PT IS CURRENTLY RESTING WITH BED ALARM ON, BED IN LOWEST POSITION, AND CALL LIGHT WITHIN REACH.
[2023-03-16 05:04] LABS: BASOPHILS ABSOLUTE AUTO 0.03 K/mm3 (0.00-0.23); BASOPHILS PERCENT AUTO 1 % (0-2); EOSINOPHILS ABSOLUTE AUTO 0.06 K/mm3 (0.00-0.68); EOSINOPHILS PERCENT AUTO 1 % (0-6); Hematocrit 30.6 % (33.0-51.0); Hemoglobin 9.8 g/dL (11.5-16.0); IMMATURE GRAN ABSOLUTE AUTO 0.02 K/mm3 (0.00-0.10); IMMATURE GRAN PERCENT AUTO 1 % (0-1); LYMPHOCYTES ABSOLUTE AUTO 0.68 K/mm3 (0.84-5.20); LYMPHOCYTES PERCENT AUTO 16 % (21-46); MONOCYTES PERCENT AUTO 7 % (4-13); Mean Corpuscular HGB 33.7 pg (26.0-34.0); Mean Corpuscular Volume 105 fL (80-100); Mean Platelet Volume 9.8 fL (9.1-12.4); NEUTROPHILS ABSOLUTE AUTO 3.07 K/mm3 (1.96-9.15); NEUTROPHILS PERCENT AUTO 74 % (41-73); Platelet Count 310 K/mm3 (150-400); RDW Coefficient Variation 13.9 % (11.7-14.2); RDW Standard Deviation 53.2 fL (35.1-46.3); Red Blood Cell Count 2.91 M/mm3 (3.80-5.20); White Blood Cell Count 4.16 K/mm3 (4.00-11.30)
[2023-03-16 05:25] LABS: Albumin, Blood 2.5 g/dL (3.4-5.0); Albumin/Globulin Ratio 1.2 (0.8-1.8); Bilirubin, Total 0.6 mg/dL (0.1-1.0); Bun/Creatinine Ratio 14.2 (12.0-20.0); Creatinine, Blood 0.63 mg/dL (0.40-1.00); Potassium, Blood 3.3 mmol/L (3.5-5.5); Total Protein, Blood 4.5 g/dL (6.4-8.2)
[2023-03-16 07:35] VITALS: BP 120/82
--- NOTE | 2023-03-16 07:50 | NUR ---
CALLED DR SILVA- NOTED AN NEW OT ORDER FOR 40MEQ OF PO POTASIUM. PT LAB DRAW WAS DONE PRIOR TO 0500 ANND 40MEQ OF IV POTASIUM WAS HUNG AROUND 0530. AWARE. ORDER RECIEVED TO HOLD TH OT DOSE OF PO POTASIUM.
[2023-03-16 12:54] VITALS: BP 126/92
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
--- NOTE | 2023-03-16 15:00 | NUR ---
CALLED DR SILVA- DARIELA 16, MEDICATED WITH IV ATIVAN. THAT SEEMED TO MAKE THE PT WOORSE. PT NIECE CALLED TO CHECK ON HER AND STATED THE PT HAS COMPLETED OUT PT ATIVAN FOR WITHDRAWLS, AND HAS ONLY HAD 3 OZ OF ALCOHOL SINCE HER PREVIOUS DISCHARGE FROM THE HOSPITAL. PT IS SEVERELY HALLUCINATING POST 1MG IV ATIVAN, SHE REACHED ACROSS TO HER IV AND RIPPED THE FLESH OFF OF HER LEFT HAND. PT WAS ATTEMPTING TO GET UP, SHE WAS EXPRESSING PARANOID DELUSIONS ABOUT STAFF. SPOKE TO DR SILVA. THE PT IS HAVING AUDITORY AND VISUAL HALLUCINATIONS BUT HER VSS ARE STABLE. AND WHEN SHE WAS NOT RIPPING THE LEADS OFF, THE TUBE SKIVER SHOWED NSR IN THE 80'S. RECIEVED AN ORDER FOR IV HALDOL. AFTER THAT THE PT RELAXED AND IS CURRENTLY NAPPING LAYING ON HER RIGHT SIDE, IN BED WITH THE BED ALARM SET.
--- NOTE | 2023-03-16 17:15 | NUR ---
SHIFT SUMMARY- PT FINALLY CALMED DOWN AFTER THE IV HALDOL. SHE WAS SLEEPING, BUT ROUSABLE AFTER MED WAS ADMININSTERED. SHE HAS NAPPED UNTIL 1630 WHEN SHE WOKE AND WAS PULLING ON HER IV LINE, LINE WAS HIDDEN BY EDITA WRAP, PT RETURNED TO HER NAP. SHE IS IN BED CURRENTLY, NO S&S OF DISTRESS NOTED, IV ABX RUNNING.
--- NOTE | 2023-03-16 18:08 | NUR ---
ASUMMED CARE OF PT @1700HRS.
[2023-03-16 20:46] VITALS: BP 142/96
--- NOTE | 2023-03-17 02:56 | NUR ---
SHIFT SUMMARY NOC PT A/O X 2-3. HIGHLY CONFUSED AT TIMES. DURING SHIFT ASSESSMENT PT HAD CIWA 11 SCORE AND GIVEN LIBRIUM PER PROTOCOL. PT D5W 1/2 NS FINISHED DURING SHIFT. PT ON TELE RUNNING SINUS RHTYHM @ 68 BPM. PT STILL RECEIVING THIAMINE IV. PT ARNIE ACEVEDO WILL CALL TOMORROW FOR UPDATE ON PT CONDITION, BUT DOES NOT WANT PHONE NUMBER GIVEN TO PT. PT IS CURRENTLY RESTING WITH BED ALARM ON, BED IN LOWEST POSITION, AND CALL LIGHT WITHIN REACH.
[2023-03-17 04:35] VITALS: BP 105/82
[2023-03-17 05:01] LABS: BASOPHILS ABSOLUTE AUTO 0.04 K/mm3 (0.00-0.23); BASOPHILS PERCENT AUTO 1 % (0-2); EOSINOPHILS ABSOLUTE AUTO 0.05 K/mm3 (0.00-0.68); EOSINOPHILS PERCENT AUTO 1 % (0-6); Hematocrit 32.7 % (33.0-51.0); Hemoglobin 10.4 g/dL (11.5-16.0); IMMATURE GRAN ABSOLUTE AUTO 0.01 K/mm3 (0.00-0.10); IMMATURE GRAN PERCENT AUTO 0 % (0-1); LYMPHOCYTES ABSOLUTE AUTO 0.75 K/mm3 (0.84-5.20); LYMPHOCYTES PERCENT AUTO 21 % (21-46); MONOCYTES PERCENT AUTO 9 % (4-13); Mean Corpuscular HGB 33.8 pg (26.0-34.0); Mean Corpuscular HGB Conc 31.8 g/dL (31.5-36.5); Mean Corpuscular Volume 106 fL (80-100); Mean Platelet Volume 9.9 fL (9.1-12.4); NEUTROPHILS ABSOLUTE AUTO 2.37 K/mm3 (1.96-9.15); NEUTROPHILS PERCENT AUTO 67 % (41-73); Platelet Count 306 K/mm3 (150-400); RDW Standard Deviation 54.6 fL (35.1-46.3); Red Blood Cell Count 3.08 M/mm3 (3.80-5.20); White Blood Cell Count 3.52 K/mm3 (4.00-11.30)
[2023-03-17 06:13] LABS: Ferritin, Serum 1064 ng/mL (8-252); Iron Serum 37 ug/dL (50-170); Percent Saturation 32.5 % (15.0-50.0); Total Iron Binding Capacity 114 ug/dL (250-450)
[2023-03-17 06:25] LABS: Albumin, Blood 2.3 g/dL (3.4-5.0); Anion Gap 4 mmol/L (6-16); Blood Urea Nitrogen 5 mg/dL (8-24); Bun/Creatinine Ratio 7.5 (12.0-20.0); CO2, Blood 25 mmol/L (21-32); Chloride, Blood 116 mmol/L (98-108); Creatinine, Blood 0.67 mg/dL (0.40-1.00); Glomerular Filtration Rate 99 (60-); Glucose, Blood 84 mg/dL (70-99); Phosphorus, Blood 2.8 mg/dL (2.5-4.9); Potassium, Blood 3.5 mmol/L (3.5-5.5); Sodium, Blood 145 mmol/L (136-145)
[2023-03-17 07:30] VITALS: BP 106/77
[2023-03-17 15:24] VITALS: BP 104/69
--- NOTE | 2023-03-17 16:28 | NUR ---
SUMMARY- PT A/O X2, SELF FAMILY. DOESN'T KNOW WHERE SHE IS OR THE DATE OR YEAR. SPEACH IS SLURRED. PT IS CONFUSED AND FIDGITY, FREQ ATTEMPTS TO GET OOB, STATES SHE IS GOING TO HAVE A CIGARETTE. BED ALARM SET OFF A FEW TIMES. PT IS TOO WEAK TO ACTUALLY MAKE IT OUT OF BED. PT TOLERATING FOOD AND FLUID WITH FREQ TO CONT QUES. PT IN INCONT URINE. PT GOT UP IN CHAIR X2 AFTER BREAKFAST AND FOR DINNER FOR ABOUT 1.5 HOURS EACH TIME. MEDICATED WITH LIBRIUM 50MG ONCE THIS SHIFT FOR AGITATION WITH MOD EFFECT. SPOKE WITH FRIEDA ACEVEDO TODAY, AND UPDATED OVER THE PHONE
[2023-03-17 19:16] VITALS: BP 109/68
--- NOTE | 2023-03-18 03:30 | NUR ---
SHIFT SUMMARY NOC PT A/O X 2. PT ON TELE RUNNING ACCELERATED JUNCTION @ 90'S. PT LW IV ACCESS HIGHLY PROTECTED TO PREVENT PT FROM PULLING IV ACCESS. PT PULLED TELE LEADS OFF MULTIPLE TIME AND WAS MEDICATED PER EMAR WITH NO EFFECT. PT CONTINUED TO PULL TELE LEADS OFF AND OPENED UP SKIN TEAR ON L HAND, AND STARTED TRYING TO UNWRAP IV ACCESS TO PULL LINE. BILATERAL SOFT WRIST RESTRAINTS WERE INITIATED TO PREVENT PT FROM PULLING ON LINES, AND FROM HARMING SELF FROM SCRATCHING. PT IS CURRENTLY RESTING WITH RESTRAINTS LOOSENED, BED ALARM ON, BED IN LOWEST POSITON, AND CALL LIGHT WITHIN REACH.
[2023-03-18 05:37] VITALS: BP 119/73
[2023-03-18 08:12] VITALS: BP 106/75
[2023-03-18 16:24] VITALS: BP 113/74
--- NOTE | 2023-03-18 17:12 | NUR ---
PATIENT A/O TO SELF AND FAMILY ONLY. WRIST RETRAINTS REMOVED THIS AM AND PATIENT HAS BEEN COOPERATIVE SINCE THAT TIME. TELEMETRY D/C'D. VSS, ON RA. INCONTINENT OF URINE. UP WITH 2 ASSIST AND GAIT BELT, REMAINS VERY WEAK. TOLERATING REGULAR DIET. PATIENT CONFUSED, BUT MORE ABLE TO MAKE NEEDS KNOWN THE DAY PROGRESSED. SKIN TEAR TO L HAND, OTHERWISE SKIN INTACT. FALL PRECAUTIONS IN PLACE PER UNIT PROTOCOL.
--- NOTE | 2023-03-18 19:06 | NUR ---
PATIENT HAD VERY LITTLE U/O THIS SHIFT, BADDER SCAN VOULUME 618 ML'S. ALSO, PATIENT IS HAVING DIFFICULTY SWALLOWING AND COULD BENEFIT FROM A SPEECH THERAPY EVALUATION. WILL NOTIFY PHYSICIAN.
[2023-03-18 19:56] VITALS: BP 118/90
[2023-03-18 22:28] LABS: U Amphetamine Screen Not Detected; U Barbituate Screen Not Detected; U Benzodiazapine Screen DETECTED; U Buprenorphine Screen Not Detected; U Cannabinoids Screen Not Detected; U Cocaine Screen Not Detected; U Methadone Screen Not Detected; U Methamphetamine Screen Not Detected; U Opiates Screen Not Detected; U Oxycodone Screen Not Detected; U Phencyclidine Screen Not Detected; U Propoxyphene Screen Not Detected
--- NOTE | 2023-03-19 03:09 | NUR ---
SHIFT SUMMARY NOC PT A/O TO SELF. PT PLEASANTLY CONFUSED. PT WAS HAVING TROUBLE SWALLOWING DURING DAY SHIFT AND BEDTIME RX FIRST PO MED HARD TO TAKE, SO ST EVALUATION ORDERED AND PT IS NPO UNTIL ST EVALUATES PT. PT ABX HAVE BEEN SWITCHED TO IV CURRENTLY. PT HAD ONE CIWA OF 8 AND GIVEN ATIVAN WHICH RELIEVED PT ANXIETY. PT WAS BLADDER SCANNED DURING SHIFT CHANGE AND FOUND TO BE RETAINING 618 ML AND 750 ML AFTER STRAIGHT CATH. STRAIGHT CATH ORDER PLACED FOR EVERY SHIFT PRN DUE TO RETENTION. PT CURRENTLY HAS LR INFUSING @ 100 ML/HR DUE TO POOR PO INTAKE. PT IS CURRENTLY RESTING WITH BED ALARM ON, BED IN LOWEST POSITION, AND CALL LIGHT WITHIN REACH.
[2023-03-19 07:16] VITALS: BP 120/88
--- NOTE | 2023-03-19 07:28 | NUR ---
WENT TO CHECK ON PT IVPB ABX AND FOUND THAT PT SOUNDED WET. UPON AUSCULTATION PT LUNG SOUNDS HAD CRACKLES T/O. [employer] ACC[employer]S SUPERVISOR NOTIFIED AND HOSPITALIST CALLED. INSTRUCTIONS GIVEN FOR IV LASIX 40 MG X 1. ORDER FOR STRAIGHT CATH Q SHIFT PRN ALREADY IN ORDER SET. PT BLADDER SCANNED AND 455 ML WAS SCANNED.
--- NOTE | 2023-03-19 10:28 | NUR ---
PAPER PT WAS PROVIDED A PAPER PUZZLE BOOK BY PHYSICAL THERAPY. INFERTILITY NURSE WENT IN TO ROUND ON PT AND FOUND HER EATING PIECES OF THE COVER. PUZZLE BOOK REMOVED FROM PT REACH. PHYSICAL THERAPY NOTIFIED. CONTINUE POC.
[2023-03-19 15:50] VITALS: BP 113/84
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
[2023-03-19 19:32] VITALS: BP 98/68
[2023-03-20 03:00] VITALS: BP 146/114
--- NOTE | 2023-03-20 06:08 | NUR ---
SHIFT SUMMARY A/O TO SELF ONLY, SLURRED SPEECH. 2 MAX ASSIST FOR TRANSFERS. SPO2 >92% ON RA. DENIES PAIN OR SOB. VISUAL HALLUCINATIONS, RESTLESS, TREMULOUS. CIWA PER PROTOCOL. BLADDER SCANS PRN. BED IN LOWEST POSITION WITH CALL LIGHT IN REACH. WILL CONTINUE TO MONITOR AND REPORT TO ONCOMING RN.
[2023-03-20 07:03] VITALS: BP 105/78
[2023-03-20 08:07] LABS: Hematocrit 32.1 % (33.0-51.0); Hemoglobin 10.3 g/dL (11.5-16.0)
[2023-03-20 08:40] LABS: Albumin, Blood 2.2 g/dL (3.4-5.0); Anion Gap 4 mmol/L (6-16); Blood Urea Nitrogen 6 mg/dL (8-24); Bun/Creatinine Ratio 8.2 (12.0-20.0); CO2, Blood 29 mmol/L (21-32); Calcium, Blood 8.2 mg/dL (8.5-10.1); Chloride, Blood 116 mmol/L (98-108); Creatinine, Blood 0.73 mg/dL (0.40-1.00); Glomerular Filtration Rate 94 (60-); Glucose, Blood 91 mg/dL (70-99); Magnesium, Blood 1.5 mg/dL (1.6-2.4); Phosphorus, Blood 4.1 mg/dL (2.5-4.9); Potassium, Blood 3.1 mmol/L (3.5-5.5); Sodium, Blood 149 mmol/L (136-145)
--- NOTE | 2023-03-20 09:56 | NUR ---
NOTE PT AWAKENING SLOWLY. COOPERATIVE WITH CARE. FOLLOWING SOME DIRECTIONS. LUNGS CTA. HOB ELEVATED FOR ASPIRATION PRECAUTIONS. TOLERATED HER PILLS CRUSHED IN APPLESAUCE. TALKED WITH DR SILVA ABOUT ORAL ANXIETY MEDCIATIONS AND BEDTIME SLEEP AIDE. PT DID NOT SLEEP AT ALL. CONTINUE POC.
[2023-03-20 15:03] VITALS: BP 114/76
--- NOTE | 2023-03-20 15:19 | NUR ---
FAMILY TALKED WITH KATERYNA PT NIECE. SHE WAS CRYINGONT HE PHONE. WANTING "EVERYONE" TO KNOW THAT SHE DID THE BEST SHE COULD. SHE COULDN'T HELP HER WHEN SHE WAS CRAWLING THROUGH THE HOUSE ON HANDS AND KNEES. THEY TRIED TO WEAN HER OFF ALCOHOL. THEN SHE STARTED ACTING WEIRD. NOT EATING OR DRINKING. KATERYNA MENTIONED THAT PT WAS SEEING AN OCCUPATIONAL THERAPIST THAT TOLD THEM PT HAD TO STOP ALCOHOL SLOWLY. HER DRINK OF CHOICE WAS WINE FOR DECADES. CONTINUE POC.
--- NOTE | 2023-03-20 16:52 | NUR ---
SHIFT NOTE PT ALERT. DISORIENTED TO PLACE, TIME, EVENT. COOPERATIVE WITH CARE. NAPPING INTERMITTANTLY. VSS. STILL CALLING FOR ALISHA HER CAT. STILL TRYING TO PUT HER LEGS OVER THE RAILS. REDIRECTS MINIMALLY. MEDCIATED WITH LIBRIUM 50MG X1 EARLIER. THIS EVENING MORE RELAXED. NO COMMENTS ABOUT HITTING STAFF. INCONTINET OF BLADDER, ATTENDS ON. MAGNESIUM AND K RIDER INFUSING. IVF INFUSING TO DILUTE THE POTASSIUM RIDER. PT TOELRATING WELL. CONTINUE POC.
[2023-03-20 19:24] VITALS: BP 126/92
[2023-03-20 20:04] VITALS: BP 129/75
[2023-03-20 23:02] LABS: Source, Urine Foley catheter
[2023-03-20 23:04] LABS: Bilirubin, Urine Neg (Neg); Blood, Urine Neg (Neg); Glucose Qualitative, Urine Neg (Neg); Ketones, Urine Neg (Neg); Leukocyte Esterase, Urine Neg (Neg); Nitrite, Urine Neg (Neg); Protein, Urine Neg (Neg); Urobilinogen, Urine NORM (Normal)
[2023-03-20 23:05] LABS: Appearance, Urine Clear (Clear); Color, Urine Yellow (P-Yellow)
[2023-03-21 03:12] VITALS: BP 99/71
--- NOTE | 2023-03-21 03:47 | NUR ---
SHIFT SUMMARY A/O TO SELF ONLY, SLURRED SPEECH. 2 MAX ASSIST FOR TRANSFERS. SPO2 >92% ON RA. DENIES PAIN OR SOB. VISUAL HALLUCINATIONS. CIWA PER PROTOCOL. DAY CATH PATENT AND DRAINING TO GRAVITY. BED IN LOWEST POSITION WITH CALL LIGHT IN REACH. WILL CONTINUE TO MONITOR AND REPORT TO ONCOMING RN.
[2023-03-21 05:24] LABS: Anion Gap 3 mmol/L (6-16); Blood Urea Nitrogen 6 mg/dL (8-24); CO2, Blood 28 mmol/L (21-32); Calcium, Blood 8.5 mg/dL (8.5-10.1); Chloride, Blood 118 mmol/L (98-108); Creatinine, Blood 0.67 mg/dL (0.40-1.00); Glomerular Filtration Rate 99 (60-); Glucose, Blood 91 mg/dL (70-99); Magnesium, Blood 1.9 mg/dL (1.6-2.4); Phosphorus, Blood 3.6 mg/dL (2.5-4.9); Potassium, Blood 3.9 mmol/L (3.5-5.5); Sodium, Blood 149 mmol/L (136-145)
[2023-03-21 07:25] VITALS: BP 104/70
[2023-03-21 14:55] VITALS: BP 108/86
--- NOTE | 2023-03-21 16:04 | NUR ---
pt is alert oriented to self. pt has been calm and cooperative t/o the day so far. the pt is up with 2 person stand and pivot to the chair. the pt worked with both the physical and occupational therapist today. the pt was evaluated by speech therapy to day. bed alarm home service demonstrator light in reach, will continue to moniotr and assess for changes.
[2023-03-21 19:20] VITALS: BP 116/94
[2023-03-22 05:17] VITALS: BP 96/58
--- NOTE | 2023-03-22 06:19 | NUR ---
CIWA OF 9-10, ATIVAN 2 MG X1 WAS EFFECTIVE. DISORIENTED, HALLUCINATING, WEAK, ANXIOUS, REDIRECTABLE. NO SIGNIFICANT CHANGES NOTED. X2 ASSIST TRANSFER. REQUIRES MEDS CRUSHED. DID NOT ATTEMPT TO GET OOB LAST NIGHT.
[2023-03-22 07:39] VITALS: BP 95/72
[2023-03-22 10:32] VITALS: BP 111/78
--- NOTE | 2023-03-22 15:01 | NUR ---
pt slept PT SLEPT HARD THIS AM UNTIL NOW. BREAKFAST AND LUNCH HELD DUE TO PT DROWSINESS AND ASPIRATION RISK. PT IS NOW AWAKE AT THIS TIME
[2023-03-22 15:13] VITALS: BP 106/87
--- NOTE | 2023-03-22 17:07 | NUR ---
PT IS ALERT, ORIENTED TO SELF. PT SLEPT TODAY UNTIL AROUND 1500, PT IS NOW FULLY AWAKE SITTTING UP IN THE RECLINER. 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 THE PT IS TREMEROUS. PT ENCOURAGED TO DRINK FLUIDS, URINE IS TEA COLORED. CHAIR ALARM AND BED ALARM IN USE. CALL LIGHT IN REACH, WILL CONTINUE TO MONIOTR AND ASSESS FOR CHANGES
[2023-03-22 19:46] VITALS: BP 103/62
[2023-03-23 04:52] VITALS: BP 112/88
--- NOTE | 2023-03-23 06:03 | NUR ---
SHIFT SUMMARY PT SITTING UP IN CHAIR WITH BED ALARM DURING BEDSIDE REPORT- PT CONFUSED AND UNABLE TO FOLLOW DIRECTION OR ANSWER QUESTIONS- PT HALLUCINATING AND TRYING TO TALK OYSTER FARMER LIGHT- PT HALLUCINATING AND TALKING TO IMAGINARY PEOPLE- PT PULLING ON DAY CATHETER- BLOOD TINGED URINE D/T TRAUMA OF PULLING- PT CONTINUED TO MAKE NYDIA COLORED URINE- URINE OUTPUT DECREASED- CIWA = 13 GAVE ATIVAN 2MG IV- PT SLEPT T/O NIGHT - BED LOW POSITION, CALL LIGHT WITHIN REACH, BED ALARM IN PLACE
[2023-03-23 07:09] VITALS: BP 110/72
[2023-03-23 10:00] LABS: Calcium, Blood 8.5 mg/dL (8.5-10.1); Creatinine, Blood 0.7 mg/dL (0.40-1.00); Potassium, Blood 3.7 mmol/L (3.5-5.5)
--- NOTE | 2023-03-23 16:51 | NUR ---
SHIFT SUMMARY: PT ALERT BUT KIRBY ORIENTED TO SELF. PT VERY LETHARGIC THIS AM AND WOULD BARELY AROUSE WHEN NAME SPOKEN. AM VITALS SIGNS STABLE. NO HALLUCINATIONS THIS SHIFT. PT WENT DOWN FOR MRI OF HEAD. RESULTS IN CHART. MRI HAD DIFFICULT TIME GETTING PT TO LIE STILL DURING SCAN. PT ATTEMPTING TO PULL DAY AND IV THIS SHIFT. URINE SENT TO LAB. URINE NYDIA IN COLOR. IV WRAPPED WITH COBAN. MEDICATED WITH HALDOL PER EMAR. ASSUMING UNLIKELIHOOD CONFUSION IS RELATED TO ALCOHOL. CIWAS COMPLETED. CALL LIGHT IN REACH. BED IN LOWEST POSITION. BED ALARM ON. WILL CONTINUE TO MONITOR.
[2023-03-23 17:10] VITALS: BP 117/91
[2023-03-23 19:16] VITALS: BP 94/65
[2023-03-24 04:31] VITALS: BP 107/85
--- NOTE | 2023-03-24 04:31 | NUR ---
SHIFT SUMMARY; AT THE BEGINNING OF THE SHIFT THE PT WAS VERY ANXIOUS, CLIMBING OUT OF BED, SHE WAS HAVING POSSIBLE HALLUCINATIONS SHE WAS YELLING FOR HER CAT IN HER ROOM THAT IS NOT ACTUALLY IN HER ROOM, TREMORS COULD ALSO BE FELT. A CIWA WAS DONE AND THE PT WAS MEDICATED ACCORDINGLY WITH ATIVAN. THE PT HAS SINCE FELL ASLEEP AND HAS BEEN SLEEPING SINCE. THE PT IS AXO TO SELF ONLY THIS SHIFT,THE PT MUMBLES SO IT IS HARD TO UNDERSTAND THE PT. THE PT DENIES ANY PAIN, SOB, CHEST PAIN/PRESSURE OR N/V. CURRENTLY THE PT IS SLEEPING IN BED WITH THE BED IN THE LOWEST POSITION AND THE CALL LIGHT AT BEDSIDE.
[2023-03-24 07:12] VITALS: BP 115/77
[2023-03-24 10:12] LABS: Bun/Creatinine Ratio 10.2 (12.0-20.0); Calcium, Blood 8.8 mg/dL (8.5-10.1); Creatinine, Blood 0.69 mg/dL (0.40-1.00); Potassium, Blood 3.8 mmol/L (3.5-5.5)
[2023-03-24 15:10] VITALS: BP 90/70
--- NOTE | 2023-03-24 16:17 | NUR ---
SHIFT SUMMARY PT AWAKE AT START OF SHIFT, CONFUSED, AND ATTEMPTING TO GET OOB TO "PEE". PT REMINDED OF DAY CATH DRAINING BLADDER, BUT PT UNABLE TO UNDERSTAND OR FOLLOW DIRECTIONS. WILL ANSWER YES OR NO TO QUESTIONS REGARDING EATING OR DRINKING. UP TO EOB FOR BREAKFAST, BUT ONLY WANTING TO EAT MAGIC CUP AND APPLESAUCE. FRIEDA CALLED TO CK ON PT; UPDATE GIVEN. DR ESPAÑA IN TO SEE PT; NEW ORDERS PLACED. SCATTERED BRUISING NOTED, BODY WIDE, FROM FALLS AT HOME. NO C/O PAIN. DENIES NEEDS WHEN ASKED. CALL LT IN REACH. BED ALARM ON FOR SAFETY.
[2023-03-24 20:13] VITALS: BP 113/85
--- NOTE | 2023-03-25 04:09 | NUR ---
SHIFT SUMMARY; NO ACUTE CHANGES THROUGHOUT THE NIGHT. THE PT HAS BEEN RESTLESS OFF AND ON T/O THE NIGHT BUT FOR THE MOST PART THE PT SLEPT IN BED. D-5 HAS BEEN RUNNING AT 50MLS/HR T/O THE NIGHT.THE PTS MENTATION IS CLEARER THIS EVENING AND THE PT IS ABLE TO CONVERSE IN SIMPLE SENTENCES. THE PT DENIES ANY PAIN, CHEST PAIN/PRESSURE, SOB OR N/V. CURRENTLY THE PT IS LAYING IN BED WITH THE BED IN THE LOWEST POSITION AND THE CALL LIGHT AT BEDSIDE.
[2023-03-25 04:15] VITALS: BP 113/79
[2023-03-25 05:13] LABS: Bun/Creatinine Ratio 9.7 (12.0-20.0); Calcium, Blood 8.7 mg/dL (8.5-10.1); Creatinine, Blood 0.72 mg/dL (0.40-1.00); Potassium, Blood 3.6 mmol/L (3.5-5.5)
[2023-03-25 07:25] VITALS: BP 97/60
--- NOTE | 2023-03-25 14:03 | NUR ---
SHIFT SUMMARY PT SLEEPING AT START OF SHIFT, UNTIL JUST BEFORE LUNCH, WHEN DR ESPAÑA IN TO CHK ON HER. PT WOKE AND ASSISTED TO CHAIR AT BS. PT IS VERY WEAK AND HAD DIFFICULTY STANDING. PT ASSISTED TO CHAIR USING FWW, GB, AND 2P MAX ASSIST. PT IS MORE ALERT TODAY, NOW THAT SHE IS AWAKE. SPEECH CONTINUES TO IMPROVE AND MAKE MORE SENSE. ABLE TO MAKE SIMPLE NEEDS KNOWN. PT SAID SHE KNOWS THAT SHE IS IN THE HOSPITAL, BUT ALSO THINKS SHE HAS A BOX OF WINE BEHIND HER CHAIR. BLADDER TRAINING STARTED, PER DR TACO DAY TO BE REMOVED IN AM. PT DID BETTER AT EATING TODAY WELL, EATING 50% OF LUNCH AND DRINKING ALMOST ALL OF HER MILK. PT DOES NEED ASSIST WITH MEALS, SHE DOES NOT HAVE ENOUGH STRENGTH OR DEXTERITY TO USE A FORK OR SPOON YET. PT IS ABLE TO DRINK FROM A CUP, BUT IT TAKES HER A LONG TIME TO GET THE CUP FROM THE TABLE TO HER MOUTH. NO C/O PAIN. PT REMAINS IN CHAIR AT BS, BUT IS VERY RESTLESS, CONSTANTLY TRYING TO GET UP SINCE FINISHED WITH LUNCH. CHAIR ALARM ON FOR SAFETY. CALL LT IN REACH. PT HAS USED CALL LT A COUPLE OF TIMES SO FAR.
[2023-03-25 16:20] VITALS: BP 93/78
[2023-03-25 19:31] VITALS: BP 106/75
--- NOTE | 2023-03-26 04:03 | NUR ---
SHIFT SUMMARY; PT IS VERY RESTLESS THIS EVENING. THE PT HAS ATTEMPTED TO GET OUT OF BED MULTIPLE TIMES. CALLED [facility] AND GOT PRN HALDOL WHICH SEEMED TO HAVE LITTLE EFFECT ON THE PT THIS EVENING. THE PT IS VERY IRRITABLE THIS EVENING. BLADDER TRAINING IS CURRENTLY IN PROGRESS WITH PLANS TO D/C THE PTS DAY IN THE AM. D-5 REMAINS RUNNING AT 50MLS/HR. THE PT DENIES ANY PAIN, CHEST PAIN/PRESSURE OR SOB. CURRENTLY THE PT IS LAYING ON HER STOMACH IN BED WITH THE BED IN THE LOWEST POSITION AND THE CALL LIGHT AT BEDSIDE.
[2023-03-26 05:31] VITALS: BP 100/73
[2023-03-26 06:32] LABS: Bun/Creatinine Ratio 9.7 (12.0-20.0); Calcium, Blood 8.6 mg/dL (8.5-10.1); Creatinine, Blood 0.72 mg/dL (0.40-1.00); Potassium, Blood 3.7 mmol/L (3.5-5.5)
[2023-03-26 07:28] VITALS: BP 94/66
[2023-03-26 15:59] VITALS: BP 120/93
--- NOTE | 2023-03-26 16:45 | NUR ---
SHIFT SUMMARY: NO ACUTE EVENTS. A&O TO SELF, SOMETIMES LOCATION, NOT DAY/DATE/YEAR. SPEECH IS A BIT SLURRED, MUMBLES. DAY REMOVED DURING PREVIOUS SHIFT, HAS VOIDED. DENIES PAIN, NAUSEA. ABLE TO GET UP X 3 TO RECLINER WITH 2 PERSON, GAIT BELT, AND FWW; GAIT IS VERY WEAK, HAS TROUBLE FOLLOWING DIRECTIONS, AND TRIES TO GET UP WITHOUT ASSISTANCE. USING BSC WELL. APPETITE IS POOR, IS REQUIRING FEEDING ASSISTANCE. HAS BEEN RE-EVALUATED BY PARAKEET RAISER. GAVE TELEPHONE UPDATE TO NIECE. IS CRAVING TOBACCO, HAS NICOTINE PATCH ON. WORKED WITH PT/OT. NO BEHAVIORS REQUIRING PRN MEDS.
[2023-03-26 19:43] VITALS: BP 117/92
[2023-03-27 02:14] VITALS: BP 88/64
[2023-03-27 02:36] VITALS: BP 91/60
--- NOTE | 2023-03-27 04:10 | NUR ---
SHIFT ASSESSMENT A/O X 1 VERY CONFUSED BUT PLESENT AND FOLLOWS COMMANDS WAS A MAX ASSIST TO BSC PT HAS NOT BEEN INC BUT NEEDS DIRECTION CONSTANTLY. AGITAION WAS TREATED WITH HALDOL WHICH WORKED AFTER A FEW HOURS AND NOW PT SLEEPING COMFORTABLY. VSS, NOT S/S DISTRESS
[2023-03-27 07:25] VITALS: BP 90/69
[2023-03-27 08:49] LABS: Bun/Creatinine Ratio 8.6 (12.0-20.0); Calcium, Blood 8.5 mg/dL (8.5-10.1); Creatinine, Blood 0.7 mg/dL (0.40-1.00); Potassium, Blood 3.4 mmol/L (3.5-5.5)
[2023-03-27 15:46] VITALS: BP 96/61
--- NOTE | 2023-03-27 17:28 | NUR ---
SHIFT SUMMARY: NO ACUTE EVENTS. NO BEHAVIORS REQUIRING PRN MEDICATIONS, NO RESTRAINTS IN USE. A&O X 1-2, DOES NOT KNOW DAY/DATE/YEAR. HAS SPOTTY SHORT TERM MEMORY, STILL CONFUSED. TOLERATING PUREE DIET, BUT DOESN'T LIKE TEXTURE SO IS EATING VERY LITTLE. WAS UP IN RECLINER FOR SEVERAL HOURS, WENT BTB FOR NAP THIS AFTERNOON. GETTING UP TO BSC WITH 2 PERSON, FWW, AND GB; HAS TROUBLE FOLLOWING CUES, NOT IMPULSIVE. BOWEL MEDS STARTED TODAY, NO BM YET. POTASSIUM REPLACED.
[2023-03-27 19:24] VITALS: BP 95/73
[2023-03-28 04:35] VITALS: BP 114/84
[2023-03-28 05:11] VITALS: BP 103/76
--- NOTE | 2023-03-28 05:15 | NUR ---
PATIENT EXHIBITING S/S OF NEUROLOGICAL DECLINE. UNABLE TO RESPOND VERBALLY, AND CAN ONLY OPEN EYES FOR ABOUT A SECOND WITH A STERNAL RUB. VSS AT THIS TIME ARE STABLE. LEFT PUPIL BRISK, HOWEVER RIGHT PUPIL ROLLED BACK. RIGHT FOOT DOES NOT RESPOND TO TOUCH AT ALL. MD NOTIFIED. STAT CT ORDERED TO RULE OUT CVA
[2023-03-28 07:17] VITALS: BP 120/83
[2023-03-28 08:15] LABS: BASOPHILS ABSOLUTE AUTO 0.04 K/mm3 (0.00-0.23); BASOPHILS PERCENT AUTO 1 % (0-2); EOSINOPHILS ABSOLUTE AUTO 0.03 K/mm3 (0.00-0.68); EOSINOPHILS PERCENT AUTO 1 % (0-6); Hematocrit 36.4 % (33.0-51.0); Hemoglobin 11.8 g/dL (11.5-16.0); IMMATURE GRAN ABSOLUTE AUTO 0.01 K/mm3 (0.00-0.10); IMMATURE GRAN PERCENT AUTO 0 % (0-1); LYMPHOCYTES ABSOLUTE AUTO 1.14 K/mm3 (0.84-5.20); LYMPHOCYTES PERCENT AUTO 28 % (21-46); MONOCYTES ABSOLUTE AUTO 0.45 K/mm3 (0.16-1.47); MONOCYTES PERCENT AUTO 11 % (4-13); Mean Corpuscular HGB 32.8 pg (26.0-34.0); Mean Corpuscular HGB Conc 32.4 g/dL (31.5-36.5); Mean Corpuscular Volume 101 fL (80-100); Mean Platelet Volume 10.6 fL (9.1-12.4); NEUTROPHILS ABSOLUTE AUTO 2.44 K/mm3 (1.96-9.15); NEUTROPHILS PERCENT AUTO 60 % (41-73); Platelet Count 216 K/mm3 (150-400); RDW Standard Deviation 51.8 fL (35.1-46.3); White Blood Cell Count 4.11 K/mm3 (4.00-11.30)
[2023-03-28 08:36] LABS: Magnesium, Blood 1.8 mg/dL (1.6-2.4)
[2023-03-28 08:37] LABS: Bun/Creatinine Ratio 13.1 (12.0-20.0); Creatinine, Blood 0.69 mg/dL (0.40-1.00); Potassium, Blood 4.3 mmol/L (3.5-5.5)
[2023-03-28 15:40] VITALS: BP 121/87
--- NOTE | 2023-03-28 16:55 | NUR ---
Met with pt and her niece Kenisha. It's difficult to understand pt verbally, but with Kenisha present it's much easier. Kenisha tells me the pt does not want to be resucitated if her heart were to stop. We did discuss the second half of the POLST, but Kenisha seemed unsure of pt's wishes between "Comfort" and "Limited". She asked to think about this and discuss again tomorrow with both myself and pt. I confirmed. Pt was able to shake her head "Yes" and say, "I don't want to be resucitated". Dr. Simon gave v.o. for DNR. Will finish POLST tomorrow when Kenisha returns.
--- NOTE | 2023-03-28 18:11 | NUR ---
SUMMARY- PT A/O TO SELF AND PLACE. VERY SLEEPY AND LETHARGIC THIS AM, UNABLE TO STAY AWAKE. WAS ABLE TO FOLLOW COMMAND AND ANSWER YES/NO. DID NOT ATTEMPT TO GIVE PO EXCEPT PILLS THIS AM WITH PUDDING AND SIPS OF WATER. A FEW TIMES PT CHOKED ON WATER. SPEECH CAME BY TO WORK WITH PATIENT AND SHE WAS TO SLEEPY. LATER RN STOPPED ANY THIN LIQ, CHANGED CONSISTENCY OF LIQ NECT THICK WITH SPOON. CALLED Rudi ESPAÑA [phone] AND OBTAINED IVF ORDER FOR NOW PT'S INTAKE HAS BEEN MINIMAL TODAY. ORDER FOR IVF LR AT 50ML/HR. PT HAD DUNN FORMED BM X2 TODAY, HAS MORE READY TO COME OUT. PT WAS UNABLE TO WORK WITH PT/OT MUCH TODAY WITH DECREASED MENTATION. FRIEDA CAME IN TO VISIT AND ALSO WORKED WITH PALL TO CHANGE CODE STATUS TO DNR. PT TOLERATED PUREE DINNER ABOUT 25%, PERIODS THAT SHE POCKETS FOOD AND NEEDS REMINDER TO SWALLOW AND COUGH.
[2023-03-28 19:45] VITALS: BP 104/77
[2023-03-29 04:06] VITALS: BP 99/73
[2023-03-29 05:51] LABS: Bun/Creatinine Ratio 10.7 (12.0-20.0); Calcium, Blood 8.3 mg/dL (8.5-10.1); Creatinine, Blood 0.75 mg/dL (0.40-1.00); Potassium, Blood 3.7 mmol/L (3.5-5.5)
[2023-03-29 07:18] VITALS: BP 128/102
--- NOTE | 2023-03-29 07:33 | NUR ---
CRISTOFER SLEPT FAIRLY WELL OVERNIGHT AFTER HAVING AN EXTREMELY LARGE MUSHY INCONT STOOL EARLY IN THE EVENING. STOOL SOFTNERS AND SENNA HELD SHE HAD COPIOUS LARGE MUSHY STOOLS YESTERDAY WELL. ABDOMEN IS SOFT AND NON TENDER AND FLATUS IS PRESENT IN ALL 4 QUADS. CRISTOFER CONTINUES TO MUMBLE AND WAS ACTUALLY HALLUCINATING VISUALLY IN THE EVENING ABOUT A GENTLEMAN IN HER ROOM WHOM I BELIEVE SHE THOUGHT WAS HER . NO COMPLAINTS OR INDICATIONS OF PAIN OR DISCOMFORT. PATIENT COULD PROBABLY USE A PROBIOTIC.
[2023-03-29 10:21] VITALS: BP 102/76
[2023-03-29 15:26] VITALS: BP 118/96
--- NOTE | 2023-03-29 18:11 | NUR ---
SUMMARY- PT MORE AWAKE AND ALERT TODAY. UP IN CHAIR THROUGH BREAKFAST WITH CHAIR ALARM. PT WOULD STAND UP AND CHAIR ALARM WOULD GO OFF AND PT WOULD SIT BACK DOWN. STAFF FREQ TO CONT MONITORING BUT PT ENDED UP FALLING NEXT TO THE CHAIR IN A NONINJURIOUS FALL. NOTIFIED DR ESPAÑA AND QA ENGINEERMITZY Ogden. PT REMAINED IN BED THE REST OF THE SHIFT WITH THE BED ALARM ON. CALMED A LITTLE AFTER SEROQUEL TOOK EFFECT, PT MORE DIRECTABLE. PT TOLERATING FOOD AND FLUIDS TODAY BETTER THAN YESTERDAY WHEN SHE WAS SO SLEEPY. PT HAD 2-3 DUNN "LUMPY GRAVY" BM'S. HAD A BED BATH TODAY.
[2023-03-29 19:45] VITALS: BP 109/82
--- NOTE | 2023-03-30 04:44 | NUR ---
SHIFT SUMMARY A/O TO SELF ONLY, IMPULSIVE AT TIMES, EASILY REDIRECTABLE. DENIES PAIN/SOB. SPO2 >92% ON RA. 2P MAX ASSIST WITH GB TO BSC. VSS, NO ACUTE CHANGES AT THIS TIME. BED IN LOWEST POSITION WITH CALL LIGHT IN REACH. WILL CONTINUE TO MONITOR AND REPORT TO ONCOMING RN.
[2023-03-30 06:07] VITALS: BP 93/74
[2023-03-30 07:19] VITALS: BP 117/83
--- NOTE | 2023-03-30 12:36 | NUR ---
Case Conference: Spoke to pt's niece Kenisha today. We last spoke when Kenisha came in to help pt express her wishes for DNR. Today, Kenisha was tearful and explained she is taking care of her paraplegic full-time, and raising her 16 year old granddaughter. She states feeling some guilt for not taking pt into her home, but also recognizes it's more than she can add to her already full plate. In fact, Kenisha has been afraid to come visit for fear the hospital will make her take the pt home with her. I assured her this is not the case. Kenisha states the pt has 3 adult children who are estranged from the patient due to her history of alcoholism. She states the pt does have some assets, and she doesn't want to cause any bad feelings with the pt's estranged children, so she is not willing to even be a spokesperson or guardian for pt, requests the state step in and apoint one for her. Now that Kenisha knows the hospital will not try to send the pt home with her, she states she will visit more, and she will be more active in pt's life. Kenisha expresses appreciation for therapeutic conversation.
--- NOTE | 2023-03-30 15:48 | NUR ---
SHIFT SUMMARY MS PEREZ IS ORIENTATED TO HER NAME AND AND KNOWS SHE IS IN HOSPITAL. SHE HAS BEEN CONFUSED. SHE HAS FREQUENTLY TRIED TO GET UP OUT OF BED/CHAIR. TRIED A DAYCARE WORKER/CAMERA WITH FULL INFORMATION ABOUT THE CAMERA TO MS PEREZ. SITTER WAS RECOMMENDED BY VIRTUAL MONITOR AND THIS WAS INITIATED AT THAT TIME. MS PEREZ HAS BEEN AGGITATED AT TIMES, DESCRIBING PEOPLE AND EVENTS THAT ARE NOT PRESENT. SHE IS EAGER TO LEAVE THE HOSPITAL AND GO AND TAKE CARE OF SOME TROUBLED CHILDREN. DR ESPAÑA CALLED AND INFORMED AND EXTRA DOSE OF SEROQUIL GIVEN ORDERED. BED AND CHAIR ALARMS USED, BED LOW, CALL LIGHT IN REACH, SITTER AT BEDSIDE.
--- NOTE | 2023-03-30 18:21 | NUR ---
RN NOTE PT NOT ON OXYGEN. EDUCATED RE IGNITION SOURCES AND RISK OF INJURY WHEN OXYGEN IS IN USE. PT IS CONFUSED AND FORGETFUL. MONITORED WITH SITTER.
[2023-03-30 20:03] VITALS: BP 123/77
--- NOTE | 2023-03-31 04:33 | NUR ---
SHIFT SUMMARY 62 YR F ADMITTED ON 03/15/23 FOR UTI/AMS. DNR. PT WAS AGITATED AND ANGRY FOR MOST OF THIS SHIFT. SHE REPEATEDLY STATED THAT SHE WAS LEAVING AND THAT HER WAS WAITING TO TAKE HER HOME. SHE HAS HAD NO VISITORS THIS SHIFT. SHE REPEATEDLY KICKED AT STAFF WHEN THEY TRIED TO REDIRECT AND REPOSITION HER. SHE STATED THAT SHE WANTED TO SMOKE A CIGARETTE. SHE IS NOT ON OXYGEN BUT WAS EDUCATED ON IGNITION SOURCES AND RISK OF INJURY WHILE OXYGEN IS IN USE. PT HAS ALIGHTER THAT IS LOCKED UP IN A DRAWER OUTSIDE OF HER ROOM.
[2023-03-31 07:05] VITALS: BP 131/90
--- NOTE | 2023-03-31 13:08 | NUR ---
PATIENT INCREASED AGGITATION, THEARETING STAFF AND SHOVING STAFF, REPORTED TO DR SILVA, PATIENT REFUSED SEROQUEL, HALDOL IM GIVEN, 1:1 AT BEDSIDE
--- NOTE | 2023-03-31 13:09 | NUR ---
PATIENT REPORTED WANTING TO GO SMOKE, PATIENT DENIED ANY LIGHT, VAPOR OR FLAMMABLES IN HER PURSE IN THE ROOM, PATIENT EDUCATED ON THE SAFETY FOR NO FLAMMABLES, FALL RISH, UNSTEADY GAIT, AND CONFUSION. PATIENT UNABLE TO REDIRECT
[2023-03-31 13:29] LABS: BASOPHILS ABSOLUTE AUTO 0.05 K/mm3 (0.00-0.23); BASOPHILS PERCENT AUTO 1 % (0-2); EOSINOPHILS ABSOLUTE AUTO 0.03 K/mm3 (0.00-0.68); EOSINOPHILS PERCENT AUTO 1 % (0-6); Hematocrit 38.1 % (33.0-51.0); Hemoglobin 12.4 g/dL (11.5-16.0); IMMATURE GRAN ABSOLUTE AUTO 0.03 K/mm3 (0.00-0.10); IMMATURE GRAN PERCENT AUTO 1 % (0-1); LYMPHOCYTES ABSOLUTE AUTO 1.06 K/mm3 (0.84-5.20); LYMPHOCYTES PERCENT AUTO 27 % (21-46); MONOCYTES ABSOLUTE AUTO 0.32 K/mm3 (0.16-1.47); MONOCYTES PERCENT AUTO 8 % (4-13); Mean Corpuscular HGB 32.3 pg (26.0-34.0); Mean Corpuscular HGB Conc 32.5 g/dL (31.5-36.5); Mean Corpuscular Volume 99 fL (80-100); Mean Platelet Volume 10.2 fL (9.1-12.4); NEUTROPHILS PERCENT AUTO 63 % (41-73); Platelet Count 227 K/mm3 (150-400); RDW Coefficient Variation 13.6 % (11.7-14.2); RDW Standard Deviation 49.9 fL (35.1-46.3); Red Blood Cell Count 3.84 M/mm3 (3.80-5.20); White Blood Cell Count 3.99 K/mm3 (4.00-11.30)
[2023-03-31 13:49] LABS: Bun/Creatinine Ratio 10.9 (12.0-20.0); Creatinine, Blood 0.65 mg/dL (0.40-1.00)
--- NOTE | 2023-03-31 15:51 | NUR ---
PATIENT CONTINUES TO WANT TO LEAVE, UNABLE TO AMBULATE SAFELY, PATEINT DIGGING NAILS INTO STAFFS ARMS, VERBALL ABUSIVE, THREATENING TO CALL THE TELEMARKETING SUPERVISOR, PATIENT UNCONSOLABLE, KICKING PURPOSLEY AT STAFF, RELAYED TO INCOME TAX PREPARER
--- NOTE | 2023-03-31 15:58 | NUR ---
PATIENT PUNCHING STAFF, RELAYED TO PRODUCTION POTTER
[2023-03-31 16:01] VITALS: BP 114/71
--- NOTE | 2023-03-31 17:15 | NUR ---
PATIENT ORIENTED ONLY TO SELF, NONREDIRECTABLE, FOCUSES ON THINGS AND BECOMES VERY AGGITATED, HITS STAFF, KICKS, AND DIGS HER NAILS INTO STAFFS ARMS, UNCONSOLABLE. PATIENT WANTING TO LEAVE AMA, PATIENT UNABLE TO WALK TO THE DOOR VERY UNSTEADY GAIT, MEDICATED WITH HALDOLX2, SEROQUEL PRNX2, PATIENT PLEASANT AT THE MOMENT, VSS, NO RESTRAINTS DUE TO 1:1 AT BEDSIDE, PATIENT VERY IMPULSIVE CONSTANTLY GETTING UP AT EDGE OF BED, WAITING FOR SNF PLACEMENT, PATIENT DENEIS FLAMMABLES IN HER PURSE BUT WANTS TO GO OUTSIDE TO SMOKE, RELAYED TO COMPTOMETER OPERATOR, WILL RELAY TO PM RN
--- NOTE | 2023-04-01 05:03 | NUR ---
SHIFT SUMMARY 62 YR F ADMITTED ON 03/15/23 FOR UTI/AMS. DNR. PT SLEPT UNTIL APPROX 0100 AND BECAME INCREASINGLY AGGRESSIVE AFTER SHE WOKE UP. SHE WAS COMBATIVE WITH STAFF AND WAS KICKING AND SLAPPING AT THEM. HALDOL GIVEN IM AT APPROX 0230 AND AFTER ABOUT 30 MIN PT FELL BACK ASLEEP. SHE IS VERBALLY AGRESSIVE AND THREATENS TO HARM STAFF. SHE CONTINUALLY INSISTS THAT SHE IS GOING OUTSIDE TO SMOKE AND SHE WAS EDUCATED ON IGNITION SOURCES AND THE RISK OF INJURY WHILE OXYGEN IS IN USE. PT IS NOT CURRENTLY ON OXYGEN.
[2023-04-01 07:19] VITALS: BP 119/85
--- NOTE | 2023-04-01 12:45 | NUR ---
AWOKE, SITTING BED SIDE WITH BED ALARM ON. ATE PUDDING, CRACKERS, SMALL AMOUNT OF CHOCOLATE ENSURE. ATE A FEW BITES OF TRAY FOR LUNCH. WILL CONTINUE TO MONITOR. FAMILY CALL: SPOKE WITH DAUGHTER, GAVE UPDATE.
[2023-04-01 15:46] VITALS: BP 123/94
--- NOTE | 2023-04-01 16:54 | NUR ---
SHIFT SUMMARY- NO ACUTE CHANGES WITH SHIFT. PT SLEPT AM OF SHIFT. WOKE UP 11AM WITH SOME AGITATION. ATE SMALL MEAL. NO ASPIRATION NOTED. NO SOB. ON RA. NO IV. NO TELE. SITTER AT DOOR. BED ALARM INTACT. PT EDUCATED ON IGNITION RISKS. PT STATED SHE WANTED TO SMOKE. PT HAS TELECINE OPERATOR LOCKED IN DRAWER. NO CIGERETTES OR OTHER LIGHTERS FOUND IN ROOM. CONTINOUS REDIRECTING NEEDED FOR CESSATION OF SMOKING AND THAT THIS IS A NON SMOKING ESTABLISHMENT. WILL CONTINUE TO MONITOR AND EDUCATE. PT NOW EATING LARGER PORTION OF GIVEN SNACKS, MOOD APPEARS IMPROVED FOR THE TIME BEING. A&O X2. CONFUSED AT TIMES. BLADDER SCAN @ 1500 475ML, APROX 400 ML [id number] VIA STRAIGHT CATH. PATIENT TOLERATED WELL. RE BLADDER SCAN AFTER STRAIGHT CATH, 0ML NOTED. PT REDUCED OBCESSION TO URINATE. WILL CONTINUE TO MONITOR. CALL LIGHT IN REACH. BED ALARM ON.
[2023-04-01 19:26] VITALS: BP 116/86
[2023-04-02 04:07] VITALS: BP 104/74
--- NOTE | 2023-04-02 04:46 | NUR ---
SHIFT SUMMARY 62 YR F ADMITTED ON 03/15/23 FOR UTI/AMS. DNR. NO ACUTE CHANGES THIS SHIFT. PT APPEARED TO SLEEP WELL UNTIL APPROX 0400. ONCE SHE WAS AWAKE SHE REQUIRED A GREAT DEAL OF REDIRECTION. SHE IS VERY CONFUSED AND STATED THAT SHE WANTED TO LOAD THE COMBAT RIFLE CREWMEMBER AND CLEAN OUT THE FRIG. IT WAS EXPLAINED TO HER THAT SHE IS IN THE HOSPITAL BUT SHE CONTINUALLY ATTEMPTS TO GET UP FOR VARIOUS REASONS SUCH GOING TO FIND HER AND TO HAVE A CIGARETTE. IGNITION DANGER AND FIRE HAZARD WHEN OXYGEN IS IN USE WERE EXPLAINED TO HER. SHE IS CONVINCED SHE WORKS HERE AND WANTS TO START HER JOB. SHE STATED SEVERAL TIMES THAT SHE DID NOT LIKE THE JAVA SECURITY ENGINEER THAT WAS SITTING FOR HER BECAUSE SHE WAS "JUST SITTING THERE AND NOT DOING HER JOB". OF 0500 PT HAS NOT BECOME PHYSICALLY AGGRESSIVE BUT WILL CONTINUE TO MONITOR SHE IS STARTING TO SHOW SIGNS OF AGITATION.
[2023-04-02 07:15] VITALS: BP 109/89
--- NOTE | 2023-04-02 11:09 | NUR ---
PT EDUCATED- SPOKE TO PT ABOUT THE RISK OF SMOKING IN THE HOSPITAL WITH ALL THE FLAMABLE GAS SUCH O2. PT AWARE SHE IS NOT ALLOWED TO SMOKE IN THE HOSPITAL, WHEN NICOTIENE PATCH WAS OFFERED SHE STATED "I'LL TAKE 2." SHE SEEMED TO HAVE A VAUGE UNDERSTANDING OF THE CONVERSATION TOPIC.
--- NOTE | 2023-04-02 16:01 | NUR ---
PT AGGITATION THIS MORNING SEEMED TO BE WELL MANAGED BY THE PRN SEROQUEL. DR SALAZAR CAME TO SEE THE PT, SHE WAS SLEEPING SOUNDLY UNTIL DR CAME TO SEE HER. THEN SHE WOKE AND BECAME AGGITATED AGIN. SHE IS NOT REDIRECTABLE. STAFF ARE FOLLOWING HER AROUND THE ROOM IN AN ATTEMPT TO KEEP HER SAFE. PT HAS NEARLY FALLEN 4 TIMES, ONLY STAFF INTERVENTION PREVENTED THE FALL. WHEN STAFF INTERVENE TO KEEP THE PT SAFE SHE PINCHES, SLAPS AND HITS THEM IN HER FRUSTRATION. PT WILLINGLY TOOK PRN SEROQUEL ALREADY, IT SEEMS SHE NEEDS TO RELAX AND IT MAY WORK FOR HER AGAIN IT DID BEFORE. UNABLE TO GET HER TO STAY IN ONE SPOT AT THIS TIME.
--- NOTE | 2023-04-02 16:09 | NUR ---
CALLED DR SILVA- SEE PREVIOUS NOTE FOR DETAILS. RECIEVED AN ORDER FOR RAMONA KRISHNAMURTHY.
[2023-04-02 17:07] VITALS: BP 104/65
--- NOTE | 2023-04-02 17:37 | NUR ---
SHIFT SUMMARY- PT ALERT AND ORIENTED TO SELF, SHE IS CONFUSED AND ANXIOUS AND CAN NOT BE REDIRECTED, PRN SEROQUEL WAS GIVEN, PT SEEMS A LITTLE MORE RELAXED NOW THAT SHE IS IN A RAMONA VEST LAYING IN BED. SHE IS STILL SURE SHE IS LATE FOR WORK AND NEEDS TO DEAL WITH SOMETHING IN THE FRIDGE, WHEN SHE IS TOLD SHE IS IN THE HOSPITAL SHE BECOMES MORE IRRITABLE SAYING SHE KNOWS THAT IS A LIE. PT STATED SHE NEEDS TO UES THE BATHROOM, STAFF ATTEMPTED TO ASSIST HER WITH THE BED GAYTAN, SHE WAS SURE SHE WAS GOING BUT SHE PASSED NO URINE, BLADDER SCAN SHOWS 278ML AT THIS TIME.
[2023-04-02 20:04] VITALS: BP 140/107
[2023-04-03 04:10] VITALS: BP 151/113
--- NOTE | 2023-04-03 04:26 | NUR ---
SHIFT SUMMARY. PT HAS HAD RAMONA ON THROU GHOUT SHIFT. AOX1 EXCLUSIVELY TO SELF THROUGHOUT DURATION OF SHIFT. SOME MILD HALLUCINATIONS EVIDENT BASED ON PT TELLING 1:1 SITTER THAT SOMEONE IS STANDING AGAINST WALL IN ROOM WHEN NO SUCH PERSON EXISTS. PT IS IMPULSIVE, NEAR CONSTANTLY ATTEMPTING OOB AND PULLING AT RESTRAINTS THROUGHOUT SHIFT. VERY VERY DIFFICULT TO REDIRECT. DESPIPTE THIS, HAS BEEN MOSTLY PLEASANT AND HAS TAKEN ALL PO MEDS FOR ME THIS SHIFT. DESPITE SCHEDULED AND PRN SEROQUEL ADMINISTRATION PT HAS NOT SLEPT AT ALL THIS SHIFT. NO ACUTE CHANGES THIS SHIFT. PT VOIDED ONCE EARLY IN SHIFT BUT HAS NOT SINCE. BLADDER SCAN REVEALED 415 MLS OF URINE IN BLADDER. DISCUSSED WITH CUSTODY ASSISTANTMITZY MONROY, NO NEED TO CALL HOSPITALIST OF YET. WILL CONTINUE TO MONITOR FOR VOIDING. NOTHING ELSE TO REPORT THIS SHIFT. BED LOCKED IN LOWEST POSITION. CALL LIGHT LEFT WITHIN REACH.
[2023-04-03 07:34] VITALS: BP 133/105
[2023-04-03 15:20] VITALS: BP 146/104
--- NOTE | 2023-04-03 17:31 | NUR ---
PATIENT A/O TO SELF ONLY. WORKED WITH PT TODAY AND AMBULATED IN HALLS. UPTO CHAIR FOR MEALS AND SAT OUT IN [place]ARCIA WITH 1:1 SITTER THIS AFTERNOON. REMAINS IN RAMONA D/T ATTEMPTING TO GET UP UNSAFELY AND AMS. DIFFICULT TO REDIRECT. SEROQUEL GIVEN X1 FOR AGITATION. VSS, ON RA. UNABLE TO EDUCATE PATIENT ABOUT IGNITION SOURCES AND RISK OF INJURY WHILE ON O2 D/T DEMENTIA AND INABILITY TO UNDERSTAND, NO FAMILY AT BEDSIDE TO EDUCATE.
[2023-04-03 18:58] VITALS: BP 136/96
--- NOTE | 2023-04-04 05:49 | NUR ---
EOS NOTE: PATIENT A/O TO SELF ONLY, RAMONA VEST IN PLACE, Q2 RESTRAINT ASSESSMENT COMPLETED. VERY CONFUSED AND NOT EASILY REDIRECTED, GRABBING AT STAFF WHEN HELPING SHIFT PATIENT BACK INTO BED. 150 MG SEROQUEL GIVEN, PT WAS UNABLE TO SLEEP, ZYPREXA GIVEN TWICE AND PATIENT WAS ABLE TO REST QUIETLY FROM 0200 ON. PATIENT HAD PREVIOUSLY BEEN UNABLE TO SLEEP FOR MULTIPLE DAYS ACCORDING TO PREVIOUS NOTES AND MD. VOIDED X1 EARLIER ON IN SHIFT. WILL CONTINUE TO MONITOR.
--- NOTE | 2023-04-04 14:07 | NUR ---
Received a call from pt's arnol Kenisha today, she asked if pt's son has called about becoming pt's POA, but it doesn't appear he has as of today. Kenisha was weepy during this call, states she came and saw pt this weekend, brought her some snacks and pajamas. She states feeling sad that pt's son has remained estranged from her, and continued guilt for "not being able to do more for her". I reminded Kenisha of our conversation last week regarding caring for her and granddaughter, and reminded her of the importance of self care as well. She thanked me for the reminder, and states she will continue to visit while pt continues waiting for placement.
[2023-04-04 14:41] VITALS: BP 119/91
--- NOTE | 2023-04-04 18:13 | NUR ---
PATIENT A/O TO SELF AND FAMILY AT TIMES. SLEPT MOST OF THE MORNING AND WOKE UP IN A GREAT MOOD. ATE HER LUNCH AND WAS ABLE TO VOID, NO STRAIGHT CATH NEEDED THIS SHIFT. WORKED WITH PT AND WAS UP IN CHAIR IN THE HALLS LAUGHING AND TALKING WITH STAFF. THIS EVENING AROUND 1700 PATIENT BECAME VERY AGITATED AND WAS WANTING TO CALL A TAXI AND GO HOME. UNABLE TO REDIRECT PATIENT AND ZYPREXA WAS USED TO CONTROL AGITATION WITH MINIMAL IMPROVEMENT. PATIENT PLACED IN RAMONA VEST DUT TO UNSAFE ATTEMPTS OUT OF BED. 1:1 SITTER AT BEDSIDE THROUGHOUT THE DAY. UNABLE TO EDUCATE PATIENT REGARDING IGNITION SOURCES AND RISK OF INJURY WHILE O2 IN IN USE DUE TO AMS. PATIENT NOT USING O2.
[2023-04-04 19:21] VITALS: BP 129/93
--- NOTE | 2023-04-05 04:59 | NUR ---
EOS NOTE: PATIENT WAS PLEASANT AND COOPERATIVE AT THE BEGINNING OF THE SHIFT, NOT EASILY REDIRECTED. AO/X1, MAEE, BECAME AGGRESSIVE WITH STAFF EARLY ON IN THE NIGHT. ZYPREXA ADMINISTERED TWICE, MAXED OUT 30MG/24HR PERIOD, SEE CASEY & ORDER. PATIENT WAS CONTINUALLY YELLING OUT, TRYING TO GET OUT OF BED, ATTEMPTING TO PULL OFF RAMONA VEST. SITTER AT BEDSIDE, ATTEMPTED TO REORIENT PATIENT. PATIENT RESTED QUIETLY FROM 0330 ON.
[2023-04-05 07:53] VITALS: BP 149/109
--- NOTE | 2023-04-05 16:55 | NUR ---
PATIENT A/O TO SELF AND FAMILY ONLY. AGITATED AND PARANOID TOWARD STAFF THROUGOUT THE SHIFT. ATIVAN/HALDOL/BENADRYL IM INJECTION WAS INEFFECTIVE IN HELPING PATIENT TO REST. SEROQUEL GIVEN X2 TODAY. 1:1 SITTER AT BEDSIDE AND PATIENT CONTINUES TO REQUIRE A VEST RESTRAINT TO MAINTAIN HER SAFETY. FRIEDA ACEVEDO VISITED PATIENT TODAY AND BROUGHT HER LUNCH WHICH SHE DID EAT. PATIENT VOIDED X2 TODAY. PHONE WAS TAKEN FROM PATIENT BECAUSE SHE WAS ATTEMPTING TO CALL 911. SAFETY CHECK DONE HOURLY TO ENSURE NO IGNITION SOURCES WERE AVAILABLE TO PATIENT.
[2023-04-05 19:54] VITALS: BP 133/89
--- NOTE | 2023-04-06 06:44 | NUR ---
SHIFT SUMMARY PT ALERT TO SELF. PT IN RAMONA AND HAS 1TO 1 SITTER. PT ATTEMPTING TO GET OUT OF BED AND PULLING AT RAMONA TIES. PT ASKED ME TO CUT THE TIES OF THE VEST WHILE DOING MY ASSESSMENT. PT WAS CONFUSED BUT COOPERTIVE WITH ASSESSMENT AND TAKING MEDICATIONS. PT WAS GIVEN 300MG OF SERAQUIL AT BEDTIME PER EMAR. PT WAS FIDGITY IN BED BUT CALM AND WAS ABLE TO FALL ASLEEP AFTER SEVERAL HOURS. PT WAS ABLE TO SLEEP MOST OF NIGHT. NO ACUTE CHANGES. PT REMINDED OF NO SMOKING POLICY AND POSSIBLE IGNITION SOURCES. BED IN LOWEST POSITION AND CALL LIGHT IN REACH. SITTER IN ROOM.
[2023-04-06 07:33] VITALS: BP 113/79
[2023-04-06 15:30] VITALS: BP 138/90
--- NOTE | 2023-04-06 17:11 | NUR ---
SHIFT SUMMARY REVIEWED WITH PT IGNITION SOURCES & RISK OF INJURY WHILE O2 IS IN USE. PT DENIES SMOKING AND REPORT NO IGNITION SOURCES IN POSSESSION. PT A&O X1-2. VSS. PT IS CONFUSED & IS NOT AWARE OF HER LIMITATIONS. FOR HER SAFETY, IS IN A SAFETY VEST AND A SITTER IS AT BEDSIDE. THIS SHIFT PT WILLINGLY PARTICIPATED WITH PT & OT. (SEE THERAPY NOTES). LATE IN SHIFT PT BECAME IRATE AND CONTINUED TO TRY & GET OUT OF BED EVEN THOUGH SAFETY VEST IS ON & SITTER IS IN ROOM. GAVE B52 ORDERED PER . [employer]ENA PAPERWORK HAS BEEN STARTED.
[2023-04-06 19:54] VITALS: BP 142/91
[2023-04-07 03:43] VITALS: BP 136/99
--- NOTE | 2023-04-07 04:19 | NUR ---
SHIFT HAS BEEN MOSTLY UNREMARKABLE. PT HAS SLEPT THROUGH MOST OF SHIFT AFTER 2100 MEDICATION PASS AND ASSESSMENT. 1:[address] THROUGHOUT SHIFT, RAMONA ON. RESTRAINT MANAGEMENT INTERVENTION COMPLETED Q2 HOURS. PT REMAINS ORIENTED EXCLUSIVELY TO SELF. FREQUENTLY PULLS AT RESTRAINTS BUT IS LESS PERSISTENT THAN WHEN THIS NURSE HAD HER SUNDAY EVENING. PLEASANT AND COOPERATIVE WITH CARE. APPEARS TO HAVE MILD HALLUCINATIONS AT TIMES, DISCUSSING PEOPLE IN ROOM THAT ARE NOT PRESENT. PT HAS BEEN SOMNOLENT THROUGHOUT SHIFT. CHANGED BRIEF AT ABOUT 0345 WHICH WAS VERY SATURATED WITH URINE AND PERFORMED BLADDER SCAN. BLADDER SCAN SHOWED 474 ML OF URINE. DISCUSSED WITH TORRIE ESQUIVEL RN ORDER IS PRESENT TO STRAIGHT CATH FOR BLADDER SCAN AMOUNT OF >=500MLS. DECIDED TO STRAIGHT CATH WITH ASSISTANCE FROM SABA MISHRA RN AND WAS ABLE TO GET 125 MLS OF URINE OUT. SHIFT OTHERWISE UNREMARKABLE. BED LOCKED IN LOWEST POSITION. CALL LIGHT LEFT WITHIN REACH ALTHOUGH PT DOES NOT USE IT.
[2023-04-07 05:38] LABS: Hematocrit 33.8 % (33.0-51.0); Mean Corpuscular HGB 32.5 pg (26.0-34.0); Mean Corpuscular HGB Conc 32.5 g/dL (31.5-36.5); Mean Corpuscular Volume 100 fL (80-100); Mean Platelet Volume 9.9 fL (9.1-12.4); Platelet Count 191 K/mm3 (150-400); RDW Coefficient Variation 13.4 % (11.7-14.2); RDW Standard Deviation 49.8 fL (35.1-46.3); Red Blood Cell Count 3.38 M/mm3 (3.80-5.20); White Blood Cell Count 3.51 K/mm3 (4.00-11.30)
[2023-04-07 06:30] LABS: Bun/Creatinine Ratio 11.6 (12.0-20.0); Calcium, Blood 8.5 mg/dL (8.5-10.1); Creatinine, Blood 0.69 mg/dL (0.40-1.00)
[2023-04-07 07:19] VITALS: BP 143/97
--- NOTE | 2023-04-07 08:22 | NUR ---
pt laying in bed with eyes closed, has 1:1 sitter, is calm at this time, lungs clear on r/a, hrr, trace edema to b/l le, ppp+1, cap refill <3sec, vs stable, afebrile, btx4, incont of urine/stool, briefs in place, is in a sher vest at this time, as she is confused and not redirectable, skin c/w/d except for bruising due to falls at home, noni wiggins, call light in reach.
[2023-04-07 14:47] VITALS: BP 124/88
--- NOTE | 2023-04-07 17:03 | NUR ---
pt found sitting on the floor on her knees beside the bed, sitter in room, hide or skin buffer sitting outside the room heard sitter saying to get back in bed, she walked into the room and found the pt out of her sher on her knees on the floor, pt states she did it on purpose, wants to get out of here, attempted to reorient and redirect, will try wrist restraints instead of sher, left knee has a pea size skin tear, dressing applied. call light in reach.
--- NOTE | 2023-04-07 18:26 | NUR ---
Pt is very confused, placed her in soft wrist restraints as she climbed out of the sher, wanted to relieve herself, counter top maker [place] [facility] [place] refused to get up after going, counter top maker called this writter into the room for assist, was able to redirect her a bit and stand her with two person, placed her back in bed and replaced restraints, encouraged her to eat dinner, she is oriented to self at this time and hallucinating, seeing her in the room. call light in reach, sitter in room.
[2023-04-07 20:15] VITALS: BP 154/109
--- NOTE | 2023-04-08 04:48 | NUR ---
SHIFT SUMMARY. SHIFT HAS BEEN UNREMARKABLE. PT HAS SLEPT THROUGH MUCH OF LATTER HALF OF SHIFT WAKING ONLY SPORADICALLY. RESTING COMFORTABLY. 2 PERSON ASSIST TO COMMODE. REMAINS VERY CONFUSED ALTHOUGH ABLE TO TELL ME WHO THE PRESIDENT IS IN ADDITION TO HER NAME/. COOPERATIVE WITH CARE, PLEASANT. 1:[address] SOFT WRIST RESTRAINTS IN PLACE WHICH PT STILL SPORADICALLY PULLS ON WHEN AWAKE. FALL ON DAY SHIFT PER REPORT DESPITE RAMONA AND SITTER BEING IN PLACE AT THE TIME. NO EVENTS THIS SHIFT THUS FAR. BED LOCKED IN LOWEST POSITION. CALL LIGHT LEFT WITHIN REACH.
--- NOTE | 2023-04-08 05:37 | NUR ---
BLADDER SCAN AT ABOUT 0500. BLADDER SCAN SHOWED 544 MLS OF URINE IN BLADDER. PERFORMED STRAIGHT CATH PER ORDER AND WAS ABLE TO DRAW OUT ~450MLS OF URINE. ATTEMPTED TO HAVE PT VOID ON COMMODE PRIOR TO STRAIGHT CATH BUT SHE WAS UNABLE TO PRODUCE URINE. PT TOLERATED CATH WELL. ASSISTANCE FROM KYLE LANGLEY RN. WILL CONTINUE TO MONITOR.
[2023-04-08 06:43] VITALS: BP 140/92
[2023-04-08 15:29] VITALS: BP 141/92
--- NOTE | 2023-04-08 18:02 | NUR ---
SHIFT SUMMARY PT AxOx1-2 WITH FREQUENT CONFUSION AND DELUSIONS. PT WAS DROWSY UNTIL ABOUT 1300. PT WAS TAKEN OUT OF HER WRIST RESTRAINTS AT 0945. PT HAS BEEN PLEASANT AND COOPERATIVE WITH CARE FOR THE REST OF THIS SHIFT. STILL NEED REDIRECTION AT TIMES. PT HAS 1:1 SITTER AND HAS BEEN VERY INTERACTIVE WITH THEM. PT WAS ABLE TO GET UP AND VOID AND HAVE A BM IN THE BSC. PT DENIES PAIN THIS SHIFT. PT IS CURRENTLY RESTING IN BED WATCHING TV. CALL LIGHT IN REACH.
[2023-04-08 19:00] VITALS: BP 107/81
[2023-04-08 19:32] VITALS: BP 107/81
--- NOTE | 2023-04-09 02:59 | NUR ---
FALL AT SHIFT CHANGE, APPROX 1900, MEDICAID BILLER, AND PATIENT 10/01 SITTER (ALSO A CERAMIC SAW TENDER) WERE ATTEMTING TO GET PATIENT BACK IN BED. SHE WAS AGGITATED, SWINGING HER FWW IN THE AIR, AND SAT DOWN IN ROOM CHAIR. AIDS WERE THEN ATTEMPTING TO TAKE VS AND TIDY ROOM, ROMINA PT TRIED TO GET AWAY FRO STAFF AND LOWERD SELF TO THE FLOOR, RESTING ON HER LEFT HIP AND LEGS IN THE SEATED POSITION. NO INJURIES IDENTIFIED, VSS. PATIENT HELPED BACK TO BED WITH 2X ASSIST, ORDER FOR BILATERAL SOFT WRIST RESTRAINTS OBTAINED, MD NOTIFIED, NO OTHER ISSUES TO REPORT.
[2023-04-09 03:31] VITALS: BP 135/107
--- NOTE | 2023-04-09 04:30 | NUR ---
PATIENT REMAINS ORIENTED TO SELF, AGGITATED MOST OF THE TIME, FALL AT START OF SHIFT (SEE NOTE), SLEPT FOR A FEW HOURS OF THE NIGHT. SOFT WRIST RESTRAINTS IN USE ALONG WITH 10/01 SITTER. NO OTHER CHANGES TO REPORT. WILL CONT TO MONITOR.
[2023-04-09 07:05] VITALS: BP 128/115
[2023-04-09 11:56] LABS: Bun/Creatinine Ratio 11.5 (12.0-20.0); Calcium, Blood 8.9 mg/dL (8.5-10.1); Creatinine, Blood 0.69 mg/dL (0.40-1.00); Potassium, Blood 3.9 mmol/L (3.5-5.5)
--- NOTE | 2023-04-09 16:29 | NUR ---
SHIFT SUMMARY PT AxOx1-2 WITH FREQUENT CONFUSION/FORGETFULNESS AND DELUSIONS ABOUT PEOPLE BEING IN THE ROOM THAT ARE NOT THERE. PT IS CURRENTLY IN RAMONA VEST RESTRAINT D/T UNSAFE, IMPULSIVE BEHAVIORS. PT WAS ON CLAUDIA SOFT WRIST RESTRAINTS AT THE BEGINNING OF SHIFT, AND WAS DOWNGRADED TO RAMONA VEST AT APPROX 1600. PT IS CURRENTLY SITTING UP IN RECLINER WITH RAMONA IN PLACE, CHAIR ALARM AND CAMERA MONITOR ON. PT HAS BEEN VOIDING WITHOUT DIFFICULTY THIS SHIFT. PT CALLS WHEN SHE NEEDS TO USE THE BEDSIDE COMMODE. PT WAS MEDICATED x2 FOR AGITATION THIS SHIFT. PT'S MOODS SEEM TO STABILIZE WHEN SHE IS EATING/SNACKING OR HAS ITEMS TO FIDDLE WITH TO KEEP HER BUSY. PT IS CURRENTLY SITTING IN CHAIR, DENIES ANY NEEDS AT THIS TIME. CALL LIGHT IN REACH.
[2023-04-09 16:32] VITALS: BP 133/109
[2023-04-09 19:32] VITALS: BP 149/90
--- NOTE | 2023-04-09 20:40 | NUR ---
IGNITION RISK EDUCATION AND ASSESSMENT COMPLETED.
--- NOTE | 2023-04-09 23:50 | NUR ---
IGNITION RISK EDUCATION AND ASSESSMENT COMPLETED.
[2023-04-10 02:43] VITALS: BP 141/96
--- NOTE | 2023-04-10 06:40 | NUR ---
SUMMARY: PT A/OX3 BUT IS CONFUSED TO DATE AND SITUATION AND IS OFTEN FORGETFULL. SHE NEGLECTS CALL LIGHT, MAKES FREQ ATTEMPTS OOB BY SELF AND IS VERY IMPULSIVE AND FIGITY. PT REDIRECTS RELATIVELY EASILY BUT IS ON BED ALARM, CAMERA AND REMAINS IN RAMONA VEST FOR FALLS AND SAFETY. SCABS SCATTERED FROM FALLING BOTH AT HOME AND IN HOSPITAL. SCHEDULED SEROQUEL WAS RECIEVED AT HS TO PROMOTE REST BUT PT HARDLY SLEPT THIS SHIFT. SHE SAT AT THE EOB, ARRANGING HER BELONGINGS AND MADE REPEATED REQ'S FOR "CAB/RIDE HOME", "CIGARETTES", "BOX OF WINE" ETC. IGNITION RISK EDUCATION AND ASSESSMENT WAS COMPLETED. SHE HASN'T YET VOIDED THIS SHIFT BUT DENIED DISCOMFORT OR NEED. BLADDER SCAN WAS [address]CATH WASN'T REQUIRED PER RX TO DO SO IF GREATER THAN 500 MLS. NO ACUTE CHANGES, VSS/AFEBRILE. WCTM AND REPORT TO DAY RN.
[2023-04-10 07:19] VITALS: BP 131/90
[2023-04-10 15:28] VITALS: BP 122/91
--- NOTE | 2023-04-10 17:57 | NUR ---
SUMMARY- PT AAOX1-2 THIS SHIFT. PT CONTINUES TO FREQUENTLY GET OOB IN AN UNSAFE MANNER AND PUTS HER SAFETY IN JEOPARDY. RAMONA APPROPIATE. X1 ASSIST. SEROQUEL GIVEN X2 THIS SHIFT TO HELP WITH BEHAVIOR. RN ENSURED FIRE SAFETY EVERY HOUR WITH ROUNDS.
[2023-04-10 19:20] VITALS: BP 151/104
[2023-04-11 02:16] VITALS: BP 132/94
--- NOTE | 2023-04-11 05:42 | NUR ---
SUMMARY: PT A/OX3 AND SPECIFIES NEEDS BUT OCCASIONALLY REPLIES OFF TOPIC OR SOMEWHAT NONSENSICAL. SHE REMAINS IN RAMONA VEST, ON CAMERA AND HAS BED ALARM ON FOR IMPULSIVITY, FORGETFULLNESS AND LACKING AWARENESS OF LIMITATIONS. SHE REDIRECTS EASILY AND HAS BEEN PLEASANT AND COOPERATIVE W/CARE. INCREASED HS SEROQUEL DOSE WAS RECIEVED BUT SHE CONT'S TO BE FIGITY, SLEEPS VERY LITTLE AND SPENT MUCH OF NOCTE SITTING AT EOB. PT WAS CONT/INCONTINENT OF URINE AND SMEAR THIS SHIFT W/ATTENDS AND LINEN CHANGED PRN. NO ACUTE CHANGES, VSS/AFEBRILE. PLACEMENT PENDING. IGNITION RISK EDUCATION AND ASSESSMENT COMPLETED. WCTM AND REPORT TO DAY RN.
[2023-04-11 06:12] LABS: BASOPHILS ABSOLUTE AUTO 0.04 K/mm3 (0.00-0.23); BASOPHILS PERCENT AUTO 1 % (0-2); EOSINOPHILS ABSOLUTE AUTO 0.05 K/mm3 (0.00-0.68); EOSINOPHILS PERCENT AUTO 1 % (0-6); Hematocrit 32.5 % (33.0-51.0); Hemoglobin 10.6 g/dL (11.5-16.0); IMMATURE GRAN ABSOLUTE AUTO 0.01 K/mm3 (0.00-0.10); IMMATURE GRAN PERCENT AUTO 0 % (0-1); LYMPHOCYTES ABSOLUTE AUTO 1.04 K/mm3 (0.84-5.20); LYMPHOCYTES PERCENT AUTO 20 % (21-46); MONOCYTES PERCENT AUTO 9 % (4-13); Mean Corpuscular HGB 31.7 pg (26.0-34.0); Mean Corpuscular HGB Conc 32.6 g/dL (31.5-36.5); Mean Corpuscular Volume 97 fL (80-100); NEUTROPHILS ABSOLUTE AUTO 3.69 K/mm3 (1.96-9.15); NEUTROPHILS PERCENT AUTO 69 % (41-73); Platelet Count 243 K/mm3 (150-400); RDW Coefficient Variation 13.6 % (11.7-14.2); RDW Standard Deviation 47.9 fL (35.1-46.3); Red Blood Cell Count 3.34 M/mm3 (3.80-5.20); White Blood Cell Count 5.33 K/mm3 (4.00-11.30)
[2023-04-11 06:40] LABS: Bun/Creatinine Ratio 14.2 (12.0-20.0); Calcium, Blood 8.6 mg/dL (8.5-10.1); Creatinine, Blood 0.71 mg/dL (0.40-1.00); Potassium, Blood 3.9 mmol/L (3.5-5.5)
[2023-04-11 07:02] VITALS: BP 137/92
[2023-04-11 15:36] VITALS: BP 125/84
--- NOTE | 2023-04-11 16:57 | NUR ---
SHIFT SUMMARY PT SLEPT WELL THIS MORNING. WOKE UP AROUND 10 AM. PT PLEASANT & COOPERATIVE MOST THE SHIFT. VERY FIXATED ON IF SHE CAN GET A CIGARETTE. PT EDUCATED THAT THIS IS A SMOKE FREE FACILITY AND THE ROOM WAS FREE OF AN INGITION SOURCE. PT MEDICATED WITH PRN SEROQUEL TWICE THIS SHIFT TO HELP WITH MILD AGITATION AND RESTLESSNESS. PT RELIEVED THAT HER CAT IS STILL ALIVE AFTER SHE COULD NOT FIND HIS BODY IN HER BAG. NO OTHER ACUTE CHANGES IN ASSESSMENT AT THIS TIME. VS REVIEWED. CALL LIGHT IN REACH. SITTING UP IN CHAIR, WITH LEGS RECLINED. PT BLADDER SCANNED THIS AFTERNOON WITH 225 CC VOLUME AFTER ATTEMPTING TO VOID.NO OTHER ACUTE CHANGES IN ASSESSMENT AT THIS TIME.
[2023-04-11 19:27] VITALS: BP 143/93
--- NOTE | 2023-04-12 03:57 | NUR ---
SHIFT SUMMARY ADMITTED FOR UTI/AMS. DNR CODE. PLAN IS FOR MEMORY CARE PLACEMENT. SHE IS IMPULSIVE AND CONFUSED. SHE IS REDIRECTABLE AND COOPERATIVE WITH CARE. MECH SOFT DIET. SHE DID URINATE THIS SHIFT. 1 ASSIST W/FWW-BRP. PSYCH CONSULT IS DR. MULLINS. HX OF FALLS. FIRE SAFETY AND IGNITION RISK ASSESSED AND DISCUSSED WITH PATIENT.
[2023-04-12 05:45] VITALS: BP 133/99
[2023-04-12 06:59] VITALS: BP 137/90
--- NOTE | 2023-04-12 13:25 | NUR ---
PT IS ALERT AND ORIENTED X3. ANXIOUS WITH CONFUSION. CALM AND COOPERATIVE.
[2023-04-12 15:50] VITALS: BP 139/84
--- NOTE | 2023-04-12 17:00 | NUR ---
SHIFT SUMMARY PT IS ALERT AND ORIENTED X3. CONFUSED, ANXIOUS, PT REMAINS TO BE A FALL RISK, FORGETFUL, IMPULSIVE. ABLE TO MAKE NEEDS KNOWN. TREATED ANXIETY PER EMAR. FWW SBA TO BATHROOM, REQUIRES ASSISTANCE WITH GAIT BELT STANDING FROM TOILET. PT DECLINED WORKING WITH PHYSICAL THERAPY. HAS BEEN COOPERATIVE THIS SHIFT
[2023-04-12 20:18] VITALS: BP 131/85
--- NOTE | 2023-04-13 05:16 | NUR ---
SHIFT SUMMARY PT IS A&O2, SB WITH FWW AND GB TO BSC, RA, VSS, NO ACUTE OVERNIGHT EVENTS, FIRE IGINITION EDUCATIO PROVIDED, RAMONA AND CAMERA IN PLACE, CONTINUE POC
[2023-04-13 07:40] VITALS: BP 108/82
[2023-04-13 16:03] VITALS: BP 131/81
--- NOTE | 2023-04-13 16:24 | NUR ---
SHIFT SUMMARY PT HAS BEEN MORE CONFUSED AND IMPULSIVE THIS SHIFT THAN YESTERDAYS. PT DID REPORT GETTING GREAT SLEEP. ANXIOUS AND CAN BECOME IRRITABLE. ATTEMPTED TO RUN OUT THE DOOR WHILE NURSE AID TOILETING HER. PT VOLUNTARILY SAT ON THE FLOOR AND REPORTED NO INJURIES. NON VIOLENT RAMONA RESTRAINTS CONTINUED FOR SAFETY. 1 PERSON ASSIST WITH FWW. MONITORED BY AVASURE AND BED ALARMS. NO ACUTE CHANGES THIS SHIFT
[2023-04-13 19:38] VITALS: BP 131/86
--- NOTE | 2023-04-14 04:47 | NUR ---
62 YR F ADMITTED ON 03/15/23 FOR UTI/AMS. DNR. NO ACUTE CHANGES THIS SHIFT. PT HAS BEEN IN MOSTLY GOOD SPIRITS THIS SHIFT. AT BEGINNING OF SHIFT SHE WAS COOPERATIVE AND CALM SO RAMONA VEST WAS UNTIED. WITHIN 10 MINUTES SHE TRIED TO GET UP SEVERAL TIMES W/OUT ASSISTANCE SETTING THE BED ALARM OFF, SO RAMONA WAS REINFORCED. SHE IS STILL VERY CONFUSED AND TALKS ABOUT THINGS THAT ARE NOT TRUE OR DO NOT MAKE SENSE. SHE FINALLY FELL ASLEEP AROUND MIDNIGHT AND SLEPT FOR THE REST OF THE SHIFT.
[2023-04-14 07:45] VITALS: BP 132/119
[2023-04-14 10:16] VITALS: BP 122/90
[2023-04-14 15:05] VITALS: BP 118/83
--- NOTE | 2023-04-14 19:37 | NUR ---
DAY SHIFT SUMMARY A&O TO SELF. BECAME MORE AGITATED THE DAY PROGRESSED. ADMINISTERED QUETIAPINE TWICE. VERY AGITATED ONCE LEARNING HER NIECE WAS NOT COMING TO GET HER. REDUNDANT CIGARETTE-SEEKING. NON-REDIRECTABLE WITH SNACKS, TV, 1:1 OR DISCUSSION. NIECE STATES CRISTOFER LIKES THE COOKING CHANNEL AND COOKING; COFFEE WITH CREAMER; HER CAT, ALISHA; READING HER BIBLE AND 1:1 DISCUSSION. RAMONA APPLIED D/T FALL RISK AND IMPULSIVENESS. NO BM TODAY. TWO VOIDS. DECLINES NEED TO URINATE. BLEs 1+ PITTING EDEMA; ENCOURAGED TO ELEVATE BLEs. AMBULATES WITH FRONT-WHEEL WALKER AND GAIT BELT. DOES NOT CALL APPROPRIATLEY BUT IS ABLE TO COMMUNICATE NEEDS. SPOKE WITH NIECE, KRISTINA, WHO REPORTS CRISTOFER WANTS TO COME LIVE WITH HER/NEXT DOOR TO HER. KRISTINA HAS BEEN VERY ACTIVE IN CRISTOFER'S CARE FOR QUITE SOME TIME BUT IS NO LONGER ABLE TO DO SO AND DOES NOT KNOW HOW TO APPROACH THE SUBJECT. DISCUSSED CAREGIVER BURNOUT AND GIVING HERSELF SOME TIME TO CARE FOR HERSELF. SHE DISCUSSED POSSIBLY CUTTING COMMUNICATION WITH HER FOR THE REMAINDER OF THE WEEK. KRISTINA DID TEXT CRISTOFER LATER IN THE DAY, TELLING HER SHE WOULD NOT BE COMING TO GET HER, WHICH, UNFORTUNATELY, CAUSED EXCEEDINGLY AGGRESIVE AGITATION WITH LOUSE. HAVE BEEN ABLE TO REDIRECT AT THIS POINT BUT ANTICIPATE NEED FOR B-52 LATER THIS EVENING. REPORT TO ONCOMING RN.
[2023-04-14 19:53] VITALS: BP 125/89
--- NOTE | 2023-04-15 04:00 | NUR ---
SHIFT SUMMARY 62 YR F ADMITTED ON 03/15/23 FOR UTI/AMS. DNR. NO ACUTE CHANGES THIS SHIFT. PT HAS BEEN MOSTLY COOPERATIVE THIS SHIFT AND HAS BEEN EASILY REDIRECTABLE. THIS NURSE SPENT TIME WITH HER AND ALLOWED PT TO TALK/VENT ABOUT HER CURRENT SITUATION. SHE IS STILL VERY CONFUSED AND STATED THAT SHE IS GOING SHOPPING TO SPEND HER HUSBANDS MONEY BECAUSE HE DESERVES IT. SHE STATED AT ONE POINT THAT HER HAD LEFT HER AND THEN SHORTLY LATER STATED THAT HE OF CANCER. SHE REMAINS IN A RAMONA VEST SHE IS IMPULSIVE TO GET UP AND AMBULATE WITHOUT ASKING FOR ASSISTANCE AND SHE IS A FALL RISK. THIS NURSE FEELS THAT PT WOULD BENEFIT FROM A SUPERVISED WALK AROUND THE UNIT BECAUSE SHE IS BORED AND TIRED OF BEING "TRAPPED IN A BED AND CHAIR ALL DAY" . UNFORTUNATELY, THERE WAS NOT A STAFF MEMBER AVAILABLE TO ASSIST HER BEFORE SHE FELL ASLEEP FOR THE NIGHT.
--- NOTE | 2023-04-15 17:55 | NUR ---
A&O TO SELF, ONLY. MUCH LESS AGITATED TODAY THAN YESTERDAY. HAS BEEN LAYING IN BED, ELEVATING HER FEET FOR ENTIRETY OF SHIFT EXCEPT WHEN TOILETING. NO C/O PAIN OR DISOMFORT. HAS BEEN REFUSING MIRALAX BUT GIVEN TODAY D/T NO DOCUMENTED BM SINCE 04/11/23. DISCUSSION WITH HOSPTIALIST TODAY R/T DISCHARGE PLANNING; THIS UPSET HER, BUT NOT TO THE EXTENT IT DID YESTERDAY. SEROQUEL GIVEN x2 TO KEEP BEHAVIORS AT [place]AY AND HAS WORKED WELL. VSS; DBP STILL ELEVATED AND PROVIDER AWARE. REPORT TO ONCOMING RN.
[2023-04-15 18:00] VITALS: BP 122/97
[2023-04-15 19:31] VITALS: BP 146/96
--- NOTE | 2023-04-16 05:10 | NUR ---
SUMMARY: PT A/OX3, IS FORGETFULL TO SITUATION AND TIME BUT REORIENTS W/REMINDERS. SHE REMAINS IN RAMONA VEST W/BED ALARM ON FOR FALL RISK AND IMPULSIVITY BUT REDIRECTS EASILY AND IS PLEASANT AND COOPERATIVE W/CARE. PT USED RESTROOM W/SBA AND FWW FOR VOIDS/X1 SM.BM. HS SEROQUEL PROVIDED AND SHE SLEPT MAJORITY OF NOCTE W/O COMPLAINTS. NO ACUTE CHANGES, VSS/AFEBRILE. IGNITION RISK EDUCATION AND ASSESSMENT COMPLETED. WCTM AND REPORT TO DAY RN.
[2023-04-16 05:24] VITALS: BP 119/81
[2023-04-16 06:39] LABS: Hematocrit 34.7 % (33.0-51.0); Hemoglobin 11.3 g/dL (11.5-16.0); Mean Corpuscular HGB 31.4 pg (26.0-34.0); Mean Corpuscular HGB Conc 32.6 g/dL (31.5-36.5); Mean Corpuscular Volume 96 fL (80-100); Mean Platelet Volume 10.2 fL (9.1-12.4); Platelet Count 227 K/mm3 (150-400); RDW Coefficient Variation 13.2 % (11.7-14.2); RDW Standard Deviation 46.8 fL (35.1-46.3); White Blood Cell Count 4.63 K/mm3 (4.00-11.30)
[2023-04-16 07:12] VITALS: BP 125/79
[2023-04-16 07:12] LABS: Bun/Creatinine Ratio 15.3 (12.0-20.0); Calcium, Blood 8.7 mg/dL (8.5-10.1); Creatinine, Blood 0.59 mg/dL (0.40-1.00); Potassium, Blood 4.3 mmol/L (3.5-5.5)
--- NOTE | 2023-04-16 16:45 | NUR ---
SHIFT SUMMARY: PT A&O TO SELF AND PERSON. PT UNABLE TO STATE REASON FOR ADMISSION AND WAS ARGUMENTATIVE WHEN ATTEMPTING TO EXPLAIN. PT MOSTLY COOPERATIVE WITH ALL CARE. PRN KATELYNN PROVIDED WITH AM MEDS. RESTRAINTS D/C @1045 AND NOT NEEDED AGAIN AT THIS TIME. PT HAS NOT ATTEMPTED OOB BY SELF SINCE. PT ABDOMEN IN PAIN THROUGHOUT SHIFT DUE TO CONSTIPATION. GAVE PT PRUNE JUICE WITH MIRALAX AND HAD EXTRA LARGE LOOSE BM AROUND 1600. PT GIVEN SHOWER. STATED TO PT IF CONTINES WILL ORDER IMMODIUM. NO OTHER ACUTE CHANGES WITH PT THIS SHIFT. CALL LIGHT IN REACH. BED IN LOWEST POSITION. BED ALARM AND CAMERA ON. WILL CONTINUE TO MONITOR.
[2023-04-16 16:57] VITALS: BP 129/87
[2023-04-16 19:26] VITALS: BP 128/94
--- NOTE | 2023-04-17 04:51 | NUR ---
SHIFT SUMMARY PT IRRITABLE AT BEGINNING OF SHIFT. PT WAS REQUESTING NIGHTLY MEDICATIONS. HELD SENNA DUE TO MULTIPLE LOOSE BM'S TODAY. EXPLAINED THIS TO PATIENT AND SHE AGREED SHE DID NOT WANT ANY LAXATIVES. HOWEVER PT VERY UPSET SHE DIDN'T GET HER DARK PILLS WITH HER SEROQUEL. EXPLAINED TO PATIENT THAT THE DARK PILLS WERE SENNA THE LAXATIVES. PT VERY ADIMATE THAT THE DARK PILLS ARE VITAMINS. CONTINUED TO ASSURE HER THEY ARE LAXATIVES AND SHE AGAIN STATED SHE DIDN'T WANT LAXATIVES. PT FELL ASLEEP AND SLEPT REMAINDER OF SHIFT. NO C/O PAIN. Q1H FIRE SAFETY CHECKS COMPLETED WITH NO FIRE IGNITION SOURCE FOUND
[2023-04-17 07:56] VITALS: BP 121/93
--- NOTE | 2023-04-17 12:17 | NUR ---
IGNITION RISK EDUCATION AND ASSESSMENT COMPLETED.
[2023-04-17 15:28] VITALS: BP 104/73
--- NOTE | 2023-04-17 16:19 | NUR ---
SHIFT SUMMARY NO ACUTE CHANGES THIS SHIFT. PT UP TO THE BATHROOM WITH A SBA, TOLERATES WELL. PT HAS BEEN ON THE PHONE MOST OF THE SHIFT, NO ISSUES. SHE HAS HAD A COUPLE OF WATERY, LOOSE STOOLS TODAY SO THE MIRALAX WAS HELD THIS AM. PLAN IS FOR LONG-TERM MEMORY CARE. CALL LIGHT WITHIN REACH, BED IN THE LOWEST POSITION.
[2023-04-17 20:03] VITALS: BP 129/85
--- NOTE | 2023-04-18 04:12 | NUR ---
SHIFT SUMMARY; NO ACUTE CHANGES OVERNIGHT. THE PT IS AXO X3 AND A STANDBY ASSIST. THE PT HAS BEEN SLEEPING IN BED T/O THE NIGHT. THE PT DENIES ANY PAIN, CHEST PAIN/PRESSURE, SOB OR N/V THIS SHIFT. CURRENTLY THE PT IS SLEEPING IN BED WITH THE BED IN THE LOWEST POSITION AND THE CALL LIGHT AT BEDSIDE.
--- NOTE | 2023-04-18 04:30 | NUR ---
FIRE SAFETY MAINTAINED T/O SHIFT, IGNITION SOURCE EDUCATION PROVIDED AND FIRE RISK ASSESSMENT COMPLETED.
[2023-04-18 05:54] VITALS: BP 118/79
[2023-04-18 09:51] VITALS: BP 127/80
--- NOTE | 2023-04-18 12:21 | NUR ---
FIRE SAFETY SUSTAINED T/0 THE SHIFT. IGNITION SOURCES ASSESSED AND EDUCATION PROVIDED TO THE PT.
[2023-04-18 15:39] VITALS: BP 122/84
--- NOTE | 2023-04-18 17:44 | NUR ---
SHIFT SUMMARY NO ACUTE EVENTS THIS SHIFT, A UA WAS ORDERED DUE TO THE PT C/O PAIN WHILE URINATING AND SLIGHT ODOR. PT HAS BEEN COOPERATIVE AND PLEASANT, CALLING WHEN NEEDING TO GET UP. NO C/O P/N/V/CP/SOB. TWO LOOSE STOOLS TODAY, HELD AM MIRALAX. CALL LIGHT WITHIN REACH, BED IN THE LOWEST POSITION.
[2023-04-18 19:22] VITALS: BP 105/64
[2023-04-19 02:44] VITALS: BP 140/93
--- NOTE | 2023-04-19 05:10 | NUR ---
SHIFT SUMMERY. PT RESTED WELL DURING NIGHT. AT BEGINNING PT OUT OF BED X 2 DUE TO PT WANTING BR LIGHT ON WISTH DOOR CLOSED AND THEN AJUSTING THE DOOR TO ALLOW JUST SO MUCH LIGHT. CALL LIGHT IN REACH BED ALRAM ON . FIRE SAFETY TEACHING DONE.
[2023-04-19 10:30] VITALS: BP 115/82
--- NOTE | 2023-04-19 14:20 | NUR ---
OXYGEN SAFETY EDUCATION: PATIENT VERBALIZED UNDERSTANDING OF OXYGEN SAFETY EDUCATION. HAS NICOTINE PATCH ON, NO CIGARETTES OR IGNITION SOURCES IN HER POSSESSION (DIRECTOR OF RETAIL IN LOCKED MEDICATION DRAWER OUTSIDE OF ROOM), IS NOT USING SUPPLEMENTAL OXYGEN.
[2023-04-19 16:44] VITALS: BP 101/72
--- NOTE | 2023-04-19 18:05 | NUR ---
SHIFT SUMMARY: NO ACUTE EVENTS. CAN BE IMPULSIVE AT TIMES, AVASURE VIRTUAL UNIT OPERATOR IS USE. DENIED PAIN. TOLERATING PO INTAKE. GETTING UP TO BR WITH SBA AND FWW, GAIT STEADY. WORKED WITH PT/OT TODAY. AWAITING PLACEMENT.
[2023-04-19 19:30] VITALS: BP 113/84
--- NOTE | 2023-04-20 02:21 | NUR ---
SHIFT SUMMERY, PT HAD HER HS MEDS EARLY PER HER REQUEST AND WENT TO BED PT AWOKE X2 DUE TO ALARM FROM ANOTHER PT. PT NOW ASLEEP FOR A FEW HRS . SHE SEEMS TO BE SLEEPING COMFORTABLY RESPERATIONS EVEN AND UNLABORED. REVIWED FIRE SAFTY WITH PT. CALL LIGHT IN REACH BED ALARM ON.
[2023-04-20 08:01] VITALS: BP 115/84
--- NOTE | 2023-04-20 11:26 | NUR ---
OXYGEN SAFETY EDUCATION: PATIENT VERBALIZED UNDERSTANDING OF OXYGEN SAFETY EDUCATION. HAS BIZTALK ADMINISTRATOR IN LOCKED MEDICATION DRAWER OUTSIDE OF ROOM, WEARING NICOTINE PATCH, NO SUPPLEMENTAL OXYGEN IN USE. WILL CONTINUE TO MONITOR.
[2023-04-20 13:48] LABS: Source, Urine Clean Catch
[2023-04-20 14:03] LABS: Appearance, Urine Clear (Clear); Bilirubin, Urine Neg (Neg); Blood, Urine Neg (Neg); Color, Urine Yellow (P-Yellow); Glucose Qualitative, Urine Neg (Neg); Ketones, Urine Neg (Neg); Leukocyte Esterase, Urine 2+ (Neg); Nitrite, Urine Neg (Neg); Protein, Urine Neg (Neg); Urobilinogen, Urine NORM (Normal)
[2023-04-20 14:18] LABS: Bacteria Few /hpf; Red Blood Cells, Urine Not Seen /hpf (0-2); Squamous Epithelial Cells Rare /hpf (Few)
[2023-04-20 14:54] VITALS: BP 126/88
--- NOTE | 2023-04-20 17:58 | NUR ---
SHIFT SUMMARY: NO ACUTE EVENTS. URINE SPECIMEN RESULTED WITH CULTURE REQUIRED, POSSIBLE UTI. DENIED PAIN. WORKED WITH PT/OT TODAY, AMB IN HALLWAY X 2. SHE IS GETTING FRUSTRATED WITH ALL THE ALARMS IN HER ROOM (VIRTUAL OUTSIDE MEDICAL SALES REPRESENTATIVE, BED ALARM, CHAIR ALARM) EVERY TIME SHE TRIES TO GET UP, BUT SHE DOESN'T USE CALL LIGHT. WANTS TO GO BACK TO HER APARTMENT. AWAITING PLACEMENT.
[2023-04-20 19:05] VITALS: BP 146/86
--- NOTE | 2023-04-21 04:24 | NUR ---
SHIFT SUMMARY ADMITTED FOR UTI/AMS. DNR CODE. PLAN IS FOR PLACEMENT. MECHANICAL SOFT DIET. ON RA. NO IV ACCESS. CONTINENT/INCONTINENT. DR. SALAZAR IS CONSULT. A&O X2, IMPULSIVE. COOPERATIVE WITH CARE, REDIRECTABLE. HX OF ETOH DEMENTIA. STANDBY ASSIST W/FWW - BRP.
[2023-04-21 06:14] VITALS: BP 130/87
[2023-04-21 07:05] VITALS: BP 94/77
--- NOTE | 2023-04-21 09:42 | NUR ---
FIRE NOTE PT EDUCATED ON RISK RE: IGNITION SOURCES AND RISK OF INJURY. PT CURRENT SMOKER. ROOFING APPLICATOR LOCKED IN MEDICATION DRAWER OUTSIDE ROOM. RECEIVING A SMOKING PATCH DAILY. CONTINUE POC.
--- NOTE | 2023-04-21 13:22 | NUR ---
NOTE PT RESTING IN BED. SHE SPENT MOST OF THE MORNING UP IN THE CHAIR. AMBULATED TO BATHROOM WITH FWW. GAIT SLOW BUT STEADY. TALKD WITH HER NIECE, KATERYNA, FOR AWHILE. SHE IS CONVINCED THAT XARELTO MAKES HER ANKLES SWELL. INCONTINET OF BLADDER. 1 LARGE BM. CHAIR AND BED ALARM ON. CONTINUE POC.
[2023-04-21 15:40] VITALS: BP 126/102
--- NOTE | 2023-04-21 16:55 | NUR ---
attempt to leave Pt became very aggitated after talking with Kenisha. [facility] She thinks she's being punished. She denies that she is incotnet. [place] logic and increasing aggitation. Medicated with Seroquel 50mg x1. SHe is currently yelling at Kenisha. She admits that she diesn't "remeber" but yet she screams that we didn't do things like at CT head and that she hasn't been here since March. COntinue POC>
[2023-04-21 19:51] VITALS: BP 134/83
--- NOTE | 2023-04-22 04:07 | NUR ---
SHIFT SUMMARY ADMITTED FOR UTI/AMS. DNR CODE. PLAN IS FOR PLACEMENT. STANDBY ASSIST W/FWW - BRP. A&O X2, IMPULSIVE AT TIMES. CONTINENT/INCONTINENT. MMSE SCORE 16/30. SHE IS CONFUSED. PHYSICAL AND OCCUPATIONAL THERAPIES ASSISTING. [facility] SOFT/GRND MEAT DIET. SHE WAS CALM AND COOPERATIVE WITH CARE THIS SHIFT. SHE TAKES XARELTO. BLE EDEMA 1+, LASIX IS SCHEDULED. NO IV ACCESS NEEDED. FIRE SAFETY AND IGNITION RISK ASSESSED AND DISCUSSED WITH PATIENT.
[2023-04-22 06:13] VITALS: BP 111/81
[2023-04-22 07:05] VITALS: BP 109/67
--- NOTE | 2023-04-22 11:20 | NUR ---
FIRE NOTE PT EDUCATED ON RISK RE: INGNITION SOURCES AND RISK FOR INJURY WHILE IN THE HOSPITAL. PT CURRENT SMOKER. LIGHTERS LOCKED OUTSIDE ROOM. HABITROL PATCH ON. CONTINUE POC.
[2023-04-22 14:19] VITALS: BP 104/69
--- NOTE | 2023-04-22 15:57 | NUR ---
shift note pT TODAY HAS HAD A CALMER MORE PLEASANT DAY. gAVE SEROQUAL WITH MORNING MEDICATIONS. SHE AGREES THAT IT HELPED HER BE LESS ANGRY. SHE HAS NOT BEEN SLEEPY. SOMETIMES USING THE CALL LIGHT. AMBULATING WITH FWW TO BATHROOM. NO INCONTINENCE TODAY. SHE HAD A PLEASANT CONVERSATION WITH KATERYNA. KATERYNA TOLD HER THAT SHE IS TRYING TO GET HER INTO [place] OR [address]. KATERYNA WILL KNOW MORE TOMORROW. CONTINUE POC.
[2023-04-22 20:05] VITALS: BP 111/80
--- NOTE | 2023-04-22 22:40 | NUR ---
PATIENT RESTING, NO DISTRESS, CALL LIGHT WITH IN REACH, PLESANT AND ORIENTED TO CARE THIS EVENING
[2023-04-23 03:10] VITALS: BP 108/76
--- NOTE | 2023-04-23 05:22 | NUR ---
NO CHANGES THROUGH OUT THE NIGHT, MAKES NEEDS KNOWN, PLEASANT AND COOPERATIVE, WAITING FOR PLACEMENT, WILL RELAY TO PM RN
[2023-04-23 07:13] VITALS: BP 120/67
[2023-04-23 14:53] VITALS: BP 102/80
--- NOTE | 2023-04-23 18:07 | NUR ---
SHIFT SUMMARY PT A&O3 AND PLEASANT. PT HAS BEEN COOPERATIVE WITH CARE TODAY. PT WAS ABLE TO WORK WITH PHYSICAL THERAPY AND OT AND TOLERATED WELL. PT AMBULATED IN GARCIA WITH MINIMAL ASSISTANCE. NO ACUTE CHANGES. PT ON REMONTE MONITORING. UP OUT OF BED SEVERAL TIMES TODAY AND MONITORING WAS ALERTED. NO ACUTE CHANGES. BED IN LOWEST POSITION AND CALL LIGHT IN REACH.
[2023-04-23 19:32] VITALS: BP 127/95
--- NOTE | 2023-04-24 04:20 | NUR ---
NO CHANGES THROUGH THE NIGHT, PATIENT SLEEPING, NO DISTRESS, BED ALARM AND MONITOR ON, PATIENT PLEASANT AND COOPERATIVE TO CARE, CALL LIGHT WITH IN REACH
[2023-04-24 05:50] VITALS: BP 125/86
[2023-04-24 07:17] VITALS: BP 124/79
[2023-04-24 15:35] VITALS: BP 112/78
--- NOTE | 2023-04-24 16:41 | NUR ---
SHIFT SUMMARY: CRISTOFER IS A&OX3. VSS, NO ACUTE EVENTS THIS SHIFT. SHE DENIES HAVING ANY PAIN BUT DOES STATE THAT HER BLE FEEL "TINGLING" WHEN SHE HAS EDEMA. SHE HAS BEEN AGREEABLE TO ELEVATE THEM WHEN IN BED. SHE IS A ONE-PERSON STANDBY ASSIST WITH THE FWW TO THE BATHROOM AND TO AMBULATE. SHE IS TOLERATING PO INTAKE WELL, DENIES ANY DIFFICULTIES USING THE BATHROOM, BUT DOES NOT USE THE CALL LIGHT. BED ALARM/CHAIR ALARM IN PLACE, VIDEO MONITORING IN PLACE. EDUCATION REGARDING THE NON-SMOKING POLICY AND IMPORTANCE OF NO SOURCES OF IGNITION IN THE HOSPITAL PROVIDED THIS SHIFT. SHE IS LYING IN BED WITH THE CALL LIGHT IN REACH. WCTM UNTIL REPORT IS GIVEN TO MARBLE CLEANER RN.
[2023-04-24 19:11] VITALS: BP 121/89
[2023-04-25 04:53] VITALS: BP 100/73
--- NOTE | 2023-04-25 05:31 | NUR ---
SHIFT SUMMARY PT SITTING UP TO SIDE OF BED EATING SANDWICH, PT DENIES PAIN/SOB- PT REQUESTED SEROQUEL SO SHE CAN SLEEP- NOTIFIED PT THAT I WILL GET MEDICATIONS EARLY- PT REPORTED HAVING AN ACTIVE DAY AND REQUESTED TO SLEEP EARLY- PT SLEEP T/O NIGHT WITHOUT S/S DISTRESS/PAIN- UNLABORED AND EVEN RESPIRATIONS, IGNITION RISK ASSESSMENT DONE- PT DENIES HAVING IGNITION ITEM- BED LOW POSITION, CALL LIGHT WITHIN REACH, BED ALARM IN PLACE
[2023-04-25 05:50] LABS: Albumin, Blood 2.2 g/dL (3.4-5.0); Anion Gap 3 mmol/L (6-16); Blood Urea Nitrogen 8 mg/dL (8-24); CO2, Blood 29 mmol/L (21-32); Calcium, Blood 8.5 mg/dL (8.5-10.1); Chloride, Blood 112 mmol/L (98-108); Creatinine, Blood 0.73 mg/dL (0.40-1.00); Glomerular Filtration Rate 94 (60-); Glucose, Blood 94 mg/dL (70-99); Phosphorus, Blood 4.1 mg/dL (2.5-4.9); Potassium, Blood 3.7 mmol/L (3.5-5.5); Sodium, Blood 144 mmol/L (136-145)
[2023-04-25 07:11] VITALS: BP 95/66
[2023-04-25 15:48] VITALS: BP 122/81
--- NOTE | 2023-04-25 17:41 | NUR ---
SUMMARY- PT A/O X3, PERIODS OF CONFUSION. PT FORGETFUL AND NEEDS REMINDERS TO ASK FOR HELP TO GET UP. SETS OFF BED ALARM BUT STEADY ENOUGH TO NOT FALL, AIDED TO BATHROOM NEEDED. SITS UP FOR MEALS AND TOLERATING FOOD AND FLUIDS. HAD A BM YESTERDAY. ASKED FOR AN ANTIANXIETY MED THIS PM, STATES IT TAKES THE EDGE OFF. AWAITING PLACEMENT, GUARDIANSHIP IN PLACE.
[2023-04-25 19:16] VITALS: BP 129/91
--- NOTE | 2023-04-26 04:33 | NUR ---
SHIFT SUMMARY PT SITTING UP IN BED DURING BEDSIDE ROUNDING- PT GIVEN HS MEDS AT THAT TIME PER PT REQUEST TO GET SOME SLEEP PT SET OFF VIRTUAL MONITORING ALARM WHILE GETTING UP TO BATHROOM- PT INCONTIENT OF URINE IN BED X 2, COMPLETE BED CHANGE AND PT CLENSED AND SHIRT AND BRIEF CHANGED-IGNITION RISK ASSESSMENT DONE, PT DENIES HAVING IGNITION DEVICES-
[2023-04-26 05:21] VITALS: BP 101/63
[2023-04-26 06:24] LABS: Bun/Creatinine Ratio 10.4 (12.0-20.0); Calcium, Blood 8.8 mg/dL (8.5-10.1); Creatinine, Blood 0.67 mg/dL (0.40-1.00); Potassium, Blood 3.5 mmol/L (3.5-5.5)
[2023-04-26 07:07] VITALS: BP 104/81
[2023-04-26 15:54] VITALS: BP 110/76
--- NOTE | 2023-04-26 16:45 | NUR ---
SUMMARY- PT A/O X3, PLEASANT AND COOPERATIVE. PT IS SBA TO BATHROOM AND PT GETS UP FOR MEALS IN A CHAIR. PT HAS BEEN AWARE OF HER LIMITS AND WAITS FOR STAFF TO WALK HER TO THE BATHROOL, STEADY ON FEET WITH. TOLERATING FOOD AND FLUIDS. AWAITING PLACEMENT
[2023-04-26 21:52] VITALS: BP 86/56
[2023-04-26 21:54] VITALS: BP 88/57
[2023-04-27 05:32] VITALS: BP 90/64
--- NOTE | 2023-04-27 06:26 | NUR ---
SHIFT SUMMARY PT SITTING UP IN BED DURING BEDSIDE ROUNDS, IGNITION ASSESSMENT DONE= PT DENIES HAVING ANY ITEMS OF IGNITION, PT SET OFF BED ALARM BY SITTING ON SIDE OF BED, PT REPORTED TO THIS RN THAT SHE KNOWS TO WAIT UNTIL STAFF COMES IN FOR ASSISTANCE, PT REPORTED HER VIRTUAL MONITORING IS GONE AND REQUESTED BED ALARM TO BE TURNED OFF- NOTIFIED PT THAT SHE IS A FALL RISK AND ALARM HAS TO STAY ON, ENCOURAGED HER TO USE CALL LIGHT AND NOT TO SIT ON SIDE OF BED TO PREVENT ALARM FROM BEING ACTIVATED- PT AGREED- PT TOOK SCHEDULED HS MEDS - PT REFUSED STOOL SOFTNER, PT CONCERNED THAT IT WOULD KEEP HER AWAKE, PT SLEPT T/O NIGHT- BED LOW POSITION, CALL LIGHT WITHIN REACH
[2023-04-27 07:27] VITALS: BP 98/68
[2023-04-27 15:04] VITALS: BP 116/85
--- NOTE | 2023-04-27 18:45 | NUR ---
SHIFT SUMMARY PT AXO, PLEASANT AND COOPERATIVE WITH CARE. PT LASIX HELD PER PARAMETERS FOR LOW BLOOD PRESSURE READING WITH MORNING VS. VS IMPROVED WITH AFTERNOON SET. UP WITH SBA. PT DENIES PAIN, SOB AND NV. HOURLY ROUNDING REGARDING IGNITION SOURCES AND FIRE PREVENTION COMPLETED. NO ACUTE CHANGES THIS SHIFT. BED IN LOW POSITION, CALL LIGHT WITHIN REACH.
[2023-04-27 20:14] VITALS: BP 125/86
--- NOTE | 2023-04-28 03:10 | NUR ---
IGNITION SOURCES AND RISKS OF USE WHEN O2 IS IN USE WERE REVIEWED WITH PT. PT DENIES HAVING IGNITION SOURCES IN HER POSSESSION. VERBALIZES GOOD UNDERSTANDING.
[2023-04-28 04:19] VITALS: BP 106/79
--- NOTE | 2023-04-28 05:39 | NUR ---
SHIFT SUMMARY NO ACUTE CHANGES THIS SHIFT. NO COMPLAINTS. PT RESTED QUIETLY & COMFORTABLY WITH EYES CLOSED, RESP EVEN & UNLABORED. BED IN LOW POSITION, CALL LIGHT WITHIN REACH. REVIEWED IGNITION SOURCES & RISK OF INJURY WHEN O2 IS IN USE. SHE DENIES HAVING IGNITION SOURCES IN HER POSSESSION. GOOD UNDERSTANDING VERBALIZED.
[2023-04-28 07:11] VITALS: BP 107/81
[2023-04-28 12:24] LABS: Source, Urine Voided
[2023-04-28 12:27] LABS: Appearance, Urine Cloudy (Clear); Bilirubin, Urine Neg (Neg); Blood, Urine 5+ (Neg); Color, Urine Amber (P-Yellow); Glucose Qualitative, Urine Neg (Neg); Ketones, Urine 1+ (Neg); Leukocyte Esterase, Urine 3+ (Neg); Nitrite, Urine Neg (Neg); Protein, Urine 3+ (Neg); Urobilinogen, Urine 1+ (Normal)
[2023-04-28 12:41] LABS: Bacteria Many /hpf; Red Blood Cells, Urine TNTC /hpf (0-2); Squamous Epithelial Cells Many /hpf (Few); White Blood Cells, Urine TNTC /hpf (0-5)
[2023-04-28 12:42] LABS: Calcium Oxalate Crystals Few /hpf; Transitional Epithelial Cells Few /hpf (0-Rare)
[2023-04-28 14:51] VITALS: BP 112/82
[2023-04-28 16:45] LABS: Source, Urine Clean Catch
[2023-04-28 16:48] LABS: Appearance, Urine Clear (Clear); Bilirubin, Urine Neg (Neg); Blood, Urine 2+ (Neg); Color, Urine Yellow (P-Yellow); Glucose Qualitative, Urine Neg (Neg); Ketones, Urine Neg (Neg); Leukocyte Esterase, Urine 3+ (Neg); Nitrite, Urine Neg (Neg); Protein, Urine Neg (Neg); Urobilinogen, Urine NORM (Normal)
[2023-04-28 16:57] LABS: Bacteria Mod /hpf; Squamous Epithelial Cells Few /hpf (Few)
--- NOTE | 2023-04-28 18:15 | NUR ---
DAY SHIFT SUMMARY PT A/OX4 WITH SOME CONFUSION/FORGETFULNESS PT C/O BURING/PAIN WITH URINATION. DR HAIR ORDER FOR UA CULT IF INDICATED. SENT UA TO LAB; SECOND ORDER FOR CLEAN CATCH AND SENT TO LAB. POSITIVE FOR UTI AND URINE CULTURE PENDING. NEW ORDER FOR MACROBID PO TO TREAT UTI. PT EXPRESSING CONCERN FOR RECURRING UTI; STATES HAS NO PREVIOUS HX OF UTI. EDUCATION ON [facility]ER CARE AND DRINKING FLUIDS. PT EDUCATED ON IGNITION RISKS. PT DENIES IGNITION SOURCES.
[2023-04-28 19:59] VITALS: BP 119/88
--- NOTE | 2023-04-29 04:04 | NUR ---
SHIFT SUMMARY UNEVENTFUL SHIFT, NO ACUTE CHANGES. VSS. IS A&O X 4. HAS RESTED QUIETLY WITH EYES CLOSED, RESP EVEN & UNLABORED. BED IN LOW POSITION, CALL LIGHT WITHIN REACH.
[2023-04-29 05:33] VITALS: BP 119/75
[2023-04-29 05:58] LABS: Hematocrit 35.5 % (33.0-51.0); Hemoglobin 11.4 g/dL (11.5-16.0); Mean Corpuscular HGB 30.6 pg (26.0-34.0); Mean Corpuscular HGB Conc 32.1 g/dL (31.5-36.5); Mean Corpuscular Volume 95 fL (80-100); Mean Platelet Volume 10.1 fL (9.1-12.4); Platelet Count 263 K/mm3 (150-400); RDW Coefficient Variation 12.6 % (11.7-14.2); RDW Standard Deviation 44.3 fL (35.1-46.3); Red Blood Cell Count 3.72 M/mm3 (3.80-5.20); White Blood Cell Count 4.85 K/mm3 (4.00-11.30)
[2023-04-29 06:36] LABS: Bun/Creatinine Ratio 12.9 (12.0-20.0); Calcium, Blood 8.8 mg/dL (8.5-10.1); Creatinine, Blood 0.7 mg/dL (0.40-1.00); Potassium, Blood 3.9 mmol/L (3.5-5.5)
[2023-04-29 07:14] VITALS: BP 110/82
[2023-04-29 14:37] VITALS: BP 105/76
--- NOTE | 2023-04-29 16:33 | NUR ---
SHIFT SUMMARY PT AxOx4 WITH MILD INTERM CONFUSION/FORGETFULNESS. PT HAS HX OF DEMENTIA. PT HAS HAD AN UNEVENTFUL DAY. SHE WAS PLEASANT AND COOPERATIVE WITH CARE. PT REPORTED MINOR BURNING WITH URINATION, BUT STATED THAT IT WAS A LOT BETTER THAN YESTERDAY. PT DENIED PAIN THIS SHIFT. PT IS CURRENTLY RESTING IN BED WITH CALL LIGHT IN REACH. VITALS REVIEWED. PT WAS ALSO EDUCATED ON FIRE SAFETY AND RISK THIS SHIFT WITH VERBALIZED UNDERSTANDING. CURRENT PLAN IS PENDING GUARDIANSHIP/PLACEMENT.
[2023-04-29 19:03] VITALS: BP 123/83
--- NOTE | 2023-04-30 04:48 | NUR ---
SHIFT SUMMARY NO ACUTE CHANGES THIS SHIFT. UNEVENTFUL NOC. VSS. PT REMAINS A&O X 4, PLEASANT & COOPERATIVE WITH ALL CARE. HAS RESTING QUIETLY WITH EYES CLOSED, RESP EVEN & UNLABORED. IS ABLE TO MAKE NEEDS KNOWN. BED IN LOW POSITION, CALL LIGHT WITHIN REACH.
[2023-04-30 05:16] VITALS: BP 131/96
[2023-04-30 07:15] VITALS: BP 119/88
[2023-04-30 16:04] VITALS: BP 126/93
--- NOTE | 2023-04-30 19:59 | NUR ---
shift summary- PT ALERT ORIENTED AND INDEPENDENT IN THE ROOM. SHE IS WILLING TO ORK WITH THERAPY. PT WANTS TO SPEAK TO HER PRESSER MACHINE TO TALK ABOUT HER DISCHARGE. PT IN BED, CALL LIGHT IN REACH NO S&S OF DISTRESS NOTED AT THE TIME OF BEDSIDE REPORT.
[2023-04-30 21:11] VITALS: BP 126/83
--- NOTE | 2023-05-01 04:19 | NUR ---
SHIFT SUMMARY PATIENT ALERT, PLEASANT, COOPERATIVE WITH CARES. NO C/O PAIN NOR DISCOMFORT STATED THIS SHIFT. VSS, SPO2 96% ON RA. INDEPENDANT IN ROOM WITH WALKER. PATIENT EDUCATED ON FIRE SAFETY AND RISK OF INJURY R/T OXYGEN USE, VERBALIZED UNDERSTANDING, DENIES SMOKING NOR HAVING ACCESS TO ANY SOURCES OF IGNITION. APPEARES TO BE RESTING SOUNDLY IN BED AT THIS TIME. NO ACUTE CHANGES NOTED OVERNIGHT. BED IN LOW POSITION, CALL LIGHT WITHIN REACH.
[2023-05-01 04:57] VITALS: BP 128/90
[2023-05-01 06:25] LABS: Bun/Creatinine Ratio 11.8 (12.0-20.0); Creatinine, Blood 0.68 mg/dL (0.40-1.00); Potassium, Blood 3.8 mmol/L (3.5-5.5)
--- NOTE | 2023-05-01 12:00 | NUR ---
CLLED DR TREJO- PT HAD AN EPPISODE OF LOOSE STOOL WITH SOME BOWEL INCONTINENCE, LIGHT BROWN PASTY STOOL NOTED. PT IS ON DAILY MIRALAX AND SENNA AT BEDTIME. RECIEVED ORDER TO CHANGE THESE TO PRN. PT STATES HER BELLY WAS UPSET THIS MORNING BUT IT FEELS BETTER NOW.
[2023-05-01 15:30] VITALS: BP 101/81
--- NOTE | 2023-05-01 19:38 | NUR ---
shift sumary- Pt has had no acute change t/o the shift. She did have an episode of loose stool, spoke to md and changed bowel care meds to prn. pt in bed watching tv no s&s of distress at the time of report.
[2023-05-01 21:09] VITALS: BP 132/99
[2023-05-02 04:15] VITALS: BP 120/82
--- NOTE | 2023-05-02 05:24 | NUR ---
SHIFT SUMMARY NO EVENTS OVERNIGHT, NO C/O PAIN. Q1H FIRE SAFETY CHECKS COMPLETED
[2023-05-02 05:48] LABS: Hematocrit 33.5 % (33.0-51.0); Hemoglobin 10.7 g/dL (11.5-16.0); Mean Corpuscular HGB 30.6 pg (26.0-34.0); Mean Corpuscular HGB Conc 31.9 g/dL (31.5-36.5); Mean Corpuscular Volume 96 fL (80-100); Mean Platelet Volume 10.2 fL (9.1-12.4); Platelet Count 260 K/mm3 (150-400); RDW Coefficient Variation 12.7 % (11.7-14.2); RDW Standard Deviation 44.6 fL (35.1-46.3); White Blood Cell Count 4.71 K/mm3 (4.00-11.30)
[2023-05-02 07:02] LABS: Percent Saturation 18.6 % (15.0-50.0)
[2023-05-02 07:03] LABS: Albumin, Blood 2.4 g/dL (3.4-5.0); Bilirubin, Total 0.2 mg/dL (0.1-1.0); Bun/Creatinine Ratio 15.5 (12.0-20.0); Calcium, Blood 8.6 mg/dL (8.5-10.1); Creatinine, Blood 0.58 mg/dL (0.40-1.00); Globulin, Blood 2.3 g/dL (2.2-4.0); Potassium, Blood 3.9 mmol/L (3.5-5.5); Total Protein, Blood 4.7 g/dL (6.4-8.2)
[2023-05-02 07:24] VITALS: BP 123/83
--- NOTE | 2023-05-02 15:11 | NUR ---
SHIFT SUMMARY- PT HAS HAD NO ACUTE CHANGE T/O THE DAY. SHE STATED SHE WANTS TO GO HOME. PT ALERT AND ORIENTED BUT FORGETFUL. SHE COVERS WELL FOR HER CONFUSION. PT ANSWERS QUESTIONS APPROPRIATELY. PLAN IS FOR GUARDIANSHIP AND PLACEMNT. PT STILL AWAITING PLACEMENT. NO IV ACCESS NEEDED.
[2023-05-02 17:09] VITALS: BP 117/91
[2023-05-03 05:22] VITALS: BP 102/67
--- NOTE | 2023-05-03 05:49 | NUR ---
SHIFT SUMMARY NO EVENTS OVERNIGHT. Q1H FIRE SAFETY CHECKS PERFORMED
[2023-05-03 07:12] VITALS: BP 84/59
[2023-05-03 16:41] VITALS: BP 123/81
--- NOTE | 2023-05-03 18:39 | NUR ---
SHIFT SUMMARY: PT A&O X4. OCCASIONALY FORGETFUL. PT PLEASANT AND COOPERATIVE WITH ALL CARE. PT INDEPENDENT IN ROOM. PT WORKED WITH PHYSICAL THERAPY THIS SHIFT AND ABLE TO WALK TO THERAPY ROOM. AWAITING PLACEMENT. FIRE IGNITION SOURCES DISCUSSED WITH PT DURING HOURLY ROUNDS. PT VERBALIZES UNDERSTANDING. CALL LIGHT IN REACH. BED IN LOWEST POSITION. WILL CONTINUE TO MONITOR.
[2023-05-03 19:42] VITALS: BP 107/72
--- NOTE | 2023-05-04 03:15 | NUR ---
CRISTOFER HAD A GOOD SLEEP OVERNIGHT. SHE WAS A&OX4, OOB AND IN GARCIA INDEPENDENTLY. NO COMPLAINTS OF PAIN OR DISCOMFORT. TALKING ABOUT [facility], AND VERY EXCITED FOR UPCOMING MOVE. NO CHANGES NOTED
[2023-05-04 05:41] VITALS: BP 105/75
[2023-05-04 08:09] VITALS: BP 116/86
--- NOTE | 2023-05-04 15:43 | NUR ---
IGNITION SOURCES DISCUSSED WITH PT DURING HOURLY ROUNDS. PT STATES SHE HAS NOT SMOKED SINCE ADMISSION AND IS CURIOUS WHY NICOTINE PATCH GOT REMOVED FROM [facility]. PT VERBALIZED UNDERSTANDING OF NO CIGARETTES/SMOKING, MATCHES, OR PHOTO CARTOGRAPHER.
[2023-05-04 15:50] VITALS: BP 120/84
--- NOTE | 2023-05-04 17:27 | NUR ---
SHIFT SUMMARY: PT A&O X4. PT PLEASANT AND COOPRATIVE WITH ALL CARE. NO ACUTE EVENTS THIS SHIFT. AWAITING PLACEMENT. CALL LIGHT IN REACH. WILL CONTINUE TO MONITOR.
[2023-05-04 19:52] VITALS: BP 120/83
--- NOTE | 2023-05-05 04:06 | NUR ---
SHIFT SUMMARY ADMITTED FOR UTI/AMS. DNR CODE. PLAN IS FOR PLACEMENT. SOFT BITE SIZE DIET. SHE IS COMPLIANT WITH CARE THIS SHIFT. FORGETFUL. SHE IS CONTINENT THIS SHIFT. ON RA. HX OF ETOH DEMENTIA, FALLS, HIP FRACTURE, L1 COMPRESSION FRACTURE. FIRE SAFETY AND IGNITION RISK HAS BEEN ASSESSED AND DISCUSSED WITH THIS PATIENT.
[2023-05-05 05:33] VITALS: BP 80/56
[2023-05-05 06:30] VITALS: BP 96/75
[2023-05-05 07:05] VITALS: BP 116/82
--- NOTE | 2023-05-05 08:00 | NUR ---
pt sittig up for breakfast a/ox4, pleasant and cooperative with care, follows commands well, deneis pain at this time, lungs are clear t/o, resp even and unlabored, no cough noted, hrr, no edema noted, ppp+1, cap refill<3sec vs stable afebrile, btx4, abd flat soft nontender, voids without diff, skin c/w/d, maew, noni, call light in reach.
[2023-05-05 15:25] VITALS: BP 125/88
--- NOTE | 2023-05-05 18:09 | NUR ---
Pt has had an uneventful day, ambulated out in [place] several times, no acute changes this shift, call light in reach.
[2023-05-05 19:22] VITALS: BP 129/88
--- NOTE | 2023-05-06 04:01 | NUR ---
SHIFT SUMMARY; NO ACUTE CHANGES OVERNIGHT. THE PT IS AXO X4 AND INDEPENDENT IN THE ROOM. THE PT HAS BEEN SLEEPING IN BED FOR THE ENTIRETY OF THE NIGHT. THE PT DENIES ANY CHEST PAIN/PRESSURE, SOB, PAIN OR N/V THIS SHIFT. CURRENTLY THE PT IS LAYING IN BED WITH THE BED IN THE LOWEST POSITION AND THE CALL LIGHT AT BEDSIDE.
[2023-05-06 04:57] VITALS: BP 93/63
--- NOTE | 2023-05-06 06:37 | NUR ---
FIRE SAFETY MAINTAINED T/O THE SHIFT.
[2023-05-06 07:20] VITALS: BP 107/79
[2023-05-06 16:19] VITALS: BP 116/83
--- NOTE | 2023-05-06 16:58 | NUR ---
SHIFT SUMMARY NO ACUTE CHANGES THIS SHIFT. PT AOX4 AND COOPERATIVE WITH CARE, MAKING HER NEEDS KNOWN. PLAN IS FOR PLACEMENT OR DISCHARGE SOON. CALL LIGHT WITHIN REACH, BED IN THE LOWEST POSITION. FIRE SAFETY PROCEDURES AND PROTOCOLS DISCUSSED WITH THE PT, PT VERBALIZED UNDERSTANDING.
[2023-05-06 19:42] VITALS: BP 127/79
--- NOTE | 2023-05-07 04:01 | NUR ---
SHIFT SUMMARY; NO ACUTE CHANGES OVERNIGHT. THE PT IS AXO X4 AND INDEPENDENT IN THE ROOM. THE PT HAS BEEN RESTING IN BED FOR THE ENTIRETY OF THE SHIFT. THE PT DENIES ANY PAIN, SOB, CHEST PAIN/PRESSURE OR N/V. CURRENTLY THE PT IS SLEEPING IN BED WITH THE BED IN THE LOWEST POSITION AND THE CALL LIGHT AT BEDSIDE. FIRE SAFETY MAINTAINED T/O THE SHIFT.
[2023-05-07 06:05] VITALS: BP 101/82
[2023-05-07 07:13] VITALS: BP 106/85
[2023-05-07 16:15] VITALS: BP 127/88
--- NOTE | 2023-05-07 17:09 | NUR ---
SHIFT SUMMARY NO ACUTE CHANGES THIS SHIFT. PT AOX4 AND COOPERATIVE WITH CARE. SHE IS WALKING T/O THE GARCIA, AMBULATING AND TOLERATING IT WELL. NO COMPLAINTS OF P/N/V/D/CP/SOB. FIRE SAFETY PROCEDURES AND PROTOCOLS DISCUSSED WITH PT. PT VERBALIZED UNDERSTANDING AND FIRE SAFETY OBTAINED T/O THE WHOLE SHIFT. CALL LIGHT WITHIN REACH, BED IN THE LOWEST POSITION. WILL REPORT TO ONCOMING NURSE.
[2023-05-07 20:04] VITALS: BP 124/86
[2023-05-08 03:54] VITALS: BP 101/76
--- NOTE | 2023-05-08 06:03 | NUR ---
SHIFT SUMMARY: NO NEW ACUTE CHANGES IN PATIENT CONDITION OVERNIGHT. PATIENT A&OX4. CALM, PLEASANT AND COOPERATIVE c CARE. USES CALL LIGHT APPROPRIATELY AND ABLE TO MAKE NEEDS KNOWN. PATIENT Q SHIFT POST VOID BALDDER SCAN 17 MLS OF URINE IN BLADDER. PATIENT HAS BEEN AMBULATING TO BATHROOM AND BACK IN BED INDEPENDENTLY USING FWW. RECEIVED SCHEDULED MEDS PER [facility]. VITAL SIGNS REVIEWED. AWAITING FOR PLACEMENT. CALL LIGHT IN REACH. PATIENT EDUCATED ON NON SMOKING POLICY, RISK OF INJURY AND IGNITION SOURCES WHEN O2 IN USE. PATIENT DENIES SMOKING AND VERVALIZED UNDERSTANDING.
[2023-05-08 07:11] VITALS: BP 107/75
[2023-05-08 15:40] VITALS: BP 111/82
--- NOTE | 2023-05-08 18:23 | NUR ---
SHIFT SUMMARY: PT A/O X 3, IND WITH AMBULATION WITH WALKER. PLEASANT AND COOPERATIVE WITH CARE. PT HAS HAD NO COMPLAINTS THROUGHOUT THE DAY. PT HAD VISIT FROM REPRESENTATIVES OF [facility]. PT ABLE TO ANSWER QUESTIONS AND PT EXPRESSED AFTER THEY LEFT SHE WOULD BE HAPPY TO LIVE AT THIS HOME. PT HAS EXPRESSED THROUGHOUT THE DAY SHE NEEDS TO FIND SOMEWHERE TO LIVE. PT ENSURED WE WILL ASSIST WITH THIS PROCESS. STEPHANIE PACHECO.
[2023-05-08 20:48] VITALS: BP 103/77
--- NOTE | 2023-05-09 04:12 | NUR ---
SHIFT SUMMARY pT HAD NO NEW ISSUES. PT HAS SLEPT WELL THROUGHOUT SHIFT. CALL LIGHT IN REACH.
[2023-05-09 04:47] VITALS: BP 99/66
[2023-05-09 05:16] LABS: Hematocrit 34.8 % (33.0-51.0); Hemoglobin 11.3 g/dL (11.5-16.0); Mean Corpuscular HGB 30.5 pg (26.0-34.0); Mean Corpuscular HGB Conc 32.5 g/dL (31.5-36.5); Mean Corpuscular Volume 94 fL (80-100); Mean Platelet Volume 10.2 fL (9.1-12.4); Platelet Count 265 K/mm3 (150-400); RDW Coefficient Variation 12.5 % (11.7-14.2); RDW Standard Deviation 43.7 fL (35.1-46.3); White Blood Cell Count 4.95 K/mm3 (4.00-11.30)
[2023-05-09 05:34] LABS: Calcium, Blood 9.3 mg/dL (8.5-10.1); Creatinine, Blood 0.73 mg/dL (0.40-1.00)
[2023-05-09 07:11] VITALS: BP 107/73
[2023-05-09 14:32] VITALS: BP 120/96
--- NOTE | 2023-05-09 17:20 | NUR ---
SHIFT SUMMARY PT IND IN ROOM. SHOWERED TODAY. PT PLEASANT & COOPERATIVE. ANXIOUS ABOUT WHAT THE PLAN IS FOR DISCHARGE. DC PLANNING WORKING ON THIS. NO ACUTE CHANGES IN ASSESSMENT PRIOR TO DC. PT RESTING IN BED, WATCHING TV. CALL LIGHT IN REACH. DENIES OTHER NEEDS AT THIS TIME.
[2023-05-09 19:30] VITALS: BP 99/70
--- NOTE | 2023-05-10 04:14 | NUR ---
SHIFT SUMMARY PT HAS HAD NO NEW ISSUES. PT HAS SLEPT WELL THROUGHOUT SHIFT. PT CURRENTLY SLEEPING IN NO DISTRESS. CALL LIGHT IN REACH.
[2023-05-10 07:13] VITALS: BP 86/55
[2023-05-10 08:10] VITALS: BP 118/75
--- NOTE | 2023-05-10 14:29 | NUR ---
SHIFT SUMMARY NO ACUTE CHANGES TO PRESENT THIS SHIFT. PT UP INDEPENDENTLY IN RM AND TO BTHRM. ABLE TO FEED HERSELF. NO C/O. DENIED NEEDS. CONTINUES TO WAIT PLACEMENT. CALL LT IN REACH.
[2023-05-10 16:25] VITALS: BP 105/81
[2023-05-10 21:05] VITALS: BP 120/95
--- NOTE | 2023-05-11 00:12 | NUR ---
shift summery pt resing in bed, pt very calm and coopearative. up at [facility]. calls for needs. pt appears to be sleeping well respertions even and unlabored. call ight in reach.
--- NOTE | 2023-05-11 00:23 | NUR ---
FIRE SAFETY REVIEWED.
[2023-05-11 05:14] VITALS: BP 93/70
--- NOTE | 2023-05-11 05:53 | NUR ---
PT IS CONTINUING TO SLEEP, PT UP TO BR THEN BACK TO BED.CALL LIGHT IN REACH.
[2023-05-11 07:31] VITALS: BP 106/75
--- NOTE | 2023-05-11 14:43 | NUR ---
SHIFT SUMMARY PT RESTING QUIETLY AWAKE DURING SHIFT REPORT. NO C/O. CONTINUES TO WAIT FOR PLACEMENT. UP INDEPENDENTLY IN RM AND WALKING IN HALLS USING FWW. UP INDEPENDENTLY TO SHOWER THIS AFTERNOON. SITS TO EOB, WATCHING COOKING SHOWS WHEN AVAILABLE. DENIES FURTHER NEEDS AT THIS TIME. CALL LT IN REACH.
[2023-05-11 15:04] VITALS: BP 108/81
[2023-05-12 05:59] VITALS: BP 107/73
--- NOTE | 2023-05-12 06:08 | NUR ---
PT WAS AOX4, INDEPENDENT, PLEASANT. UNEVENTFUL NIGHT. FIRE SAFETY REVIEWED.
[2023-05-12 07:31] VITALS: BP 110/86
[2023-05-12 15:46] VITALS: BP 107/77
--- NOTE | 2023-05-12 17:59 | NUR ---
SHIFT SUMMARY: NO ACUTE EVENTS. DENIED PAIN. AMBULATED IN HALLWAY X 2 WITH FWW, GAIT STEADY. GETTING UP TO BR. NO BEHAVIORS REQUIRING PRN MEDICATIONS, NO RESTRAINTS IN USE, IS PLEASANT AND COOPERATIVE. GOOD APPETITE. AWAITING PLACEMENT.
[2023-05-12 19:27] VITALS: BP 120/88
--- NOTE | 2023-05-13 04:12 | NUR ---
UNEVENTFUL NIGHT, NO ACUTE CHANGES NOTED. INDEPENDENT WITH WALKER TO TOILET. AOX4, PLEASANT, DETERMINED TO STAY SOBER AFTER DC. FIRE SAFETY REVIEWED.
[2023-05-13 04:18] VITALS: BP 96/73
[2023-05-13 07:20] VITALS: BP 98/75
[2023-05-13 16:13] VITALS: BP 117/90
--- NOTE | 2023-05-13 17:29 | NUR ---
SHIFT SUMMARY: NO ACUTE EVENTS. DENIES PAIN. AMBULATING IN HALLWAY WITH FWW, GAIT STEADY. NO BEHAVIORS REQUIRING PRN MEDICATIONS, NO RESTRAINTS IN USE. PLEASANT AND COOPERATIVE. AWAITING PLACEMENT.
[2023-05-13 19:26] VITALS: BP 119/86
--- NOTE | 2023-05-14 05:25 | NUR ---
NO ACUTE CHANGES NOTED, AWAITING PLACEMENT FOR DISCHARGE, PLEASANT, SLEEPS MOST OF SHIFT, INDEPENDENT WITH WALKER. PT IS CONSTIPATED, RECEIVED BOWEL MEDS YESTERDAY, REFUSED THEM DURING 2100 MED PASS LAST NIGHT. FIRE SAFETY REVIEWED.
[2023-05-14 07:19] VITALS: BP 95/75
--- NOTE | 2023-05-14 14:22 | NUR ---
1400- PT IS BEING EXTREMELY ARGUMENTATIVE AND DEMANDING SHE HAS HER XANAX ORDERED. RN ASKED PT SHE MUST STOP YELLING. RN HAD TO LEAVE THE ROOM DUE TO PT CONTINUING TO YELL.
[2023-05-14 15:21] VITALS: BP 121/85
--- NOTE | 2023-05-14 17:27 | NUR ---
SUMMARY- NO ACUTE EVENTS THIS SHIFT. NO CHANGES IN PT.
[2023-05-14 19:26] VITALS: BP 116/80
[2023-05-15 06:08] VITALS: BP 96/74
[2023-05-15 07:34] VITALS: BP 91/66
[2023-05-15 15:04] VITALS: BP 132/80
--- NOTE | 2023-05-15 17:43 | NUR ---
SUMMARY- NO ACUTE EVENTS THIS SHIFT. PT REQUESTED A REGULAR DIET. ST PERFORMED A NEW EVAL. PT IS SAFE TO EAT REGULAR DIET.
[2023-05-15 19:58] VITALS: BP 117/80
[2023-05-16 04:47] VITALS: BP 96/71
--- NOTE | 2023-05-16 05:21 | NUR ---
NO ACUTE CHANGES NOTED. FIRE SAFETY REVIEWED. INDEPENDENT TRANSFERS WITH WALKER. AO, PLEASANT, DENIES PAIN, VSS ON RA.
[2023-05-16 07:19] VITALS: BP 98/76
[2023-05-16 15:37] VITALS: BP 122/79
--- NOTE | 2023-05-16 16:39 | NUR ---
THE PATIENT IS INDEPENDENT IN HER ROOM, REQUIRING VERY LITTLE ASSISTANCE, HOURLY ROUNDING AND DROP BYE HAVE RESULTED IN BEING ASKED FOR ICE WATER, OR TRAY REMOVAL. THE PATIENT HAS RESTED IN HER BED, WATCHING TV, WILL CONTINUE TO MONITOR HER.
[2023-05-16 19:42] VITALS: BP 120/85
[2023-05-17 05:21] VITALS: BP 102/74
[2023-05-17 07:32] VITALS: BP 101/75
[2023-05-17 15:16] VITALS: BP 118/85
--- NOTE | 2023-05-17 16:07 | NUR ---
THE PATIENT IS INDEPENTENT IN HER ROOM, A&O X4, FOLLOWS COMMANDS. THE PATIENT HAD A VISIT FROM A [facility]ARE FA[facility]ILITY TODAY AND IS IN THE PROCESS OF GOING THERE. THE PATIENT IS RESTING IN BED AT THIS TIME, I WILL CONTINUE TO MONITOR.
[2023-05-17 19:33] VITALS: BP 121/83
[2023-05-18 04:22] VITALS: BP 98/66
--- NOTE | 2023-05-18 05:16 | NUR ---
Shift Summary Pt AOx4, independent in room. Slept well t/o the night after rcving nightly seroquel. No c/o of any kind.
[2023-05-18 07:31] VITALS: BP 91/56
[2023-05-18 14:55] VITALS: BP 106/77
--- NOTE | 2023-05-18 16:59 | NUR ---
NO ACUTE CHANGES, WAITING FOR PLACEMENT POSSIBLE NEXT WEEK, PATIENT INDEPENDANT IN ROOM, STEADY GAIT, PATIENT DENIES PAIN, CALL LIGHT ITH IN REACH, WILL RELAY TO PM MITZY
[2023-05-18 20:22] VITALS: BP 131/81
[2023-05-19 02:54] VITALS: BP 111/76
--- NOTE | 2023-05-19 04:47 | NUR ---
Shift Summary AOx4, independent in room, steady gait. No complaints tonight. Slept well t/o the night after rcving nightly seroquel.
[2023-05-19 07:12] VITALS: BP 107/82
[2023-05-19 14:27] VITALS: BP 99/73
--- NOTE | 2023-05-19 18:15 | NUR ---
NO ACUTE CHANGES, WAITING FOR PLACEMENT, INDEPENDANT IN ROOM, MAKES NEEDS KNOWN, CALL LIGHT WITH IN REACH
[2023-05-19 19:19] VITALS: BP 120/81
[2023-05-20 04:36] VITALS: BP 96/72
--- NOTE | 2023-05-20 06:10 | NUR ---
SHIFT SUMMARY NO EVENTS OVERNIGHT. PT SLEPT ENTIRE NIGHT. Q1H FIRE SAFETY CHECKS COMPLETED NO IGNITION SOURCES FOUND
[2023-05-20 07:13] VITALS: BP 97/76
[2023-05-20 15:43] VITALS: BP 107/83
--- NOTE | 2023-05-20 16:43 | NUR ---
no changes, waiting for placement, independant in room, vss, makes needs known, will relay to pm rn
[2023-05-20 19:55] VITALS: BP 124/83
--- NOTE | 2023-05-21 04:29 | NUR ---
CRISTOFER WAS A/O X4 THIS SHIFT, CALM PLEASANT AND COOPERATIVE WITH CARE. PT AMBULATORY IN ROOM, AND IS ABLE TO CALL APPROPRIATELY FOR ASSISTANCE. PT HAD NO COMPLAINTS OF ANY KIND THIS SHIFT.
--- NOTE | 2023-05-21 04:36 | NUR ---
THIS LMFT HAS REVIEWED AND NOTES AND ASSESSMENTS BY MITZY WALKER AND AGREES WITH THEM.
[2023-05-21 04:37] VITALS: BP 104/62
[2023-05-21 07:49] VITALS: BP 96/70
[2023-05-21 15:27] VITALS: BP 109/84
--- NOTE | 2023-05-21 18:01 | NUR ---
SHIFT SUMMARY NO ACUTE CHANGES. PT ABLE TO HAVE LARGE BM TODAY. NEICE AT BEDSIDE DURING THE AFTERNOON AND BROUGHT TACO RAMEY FOR PT. PT C/O LOWER BACK PAIN AND NECK PAIN. HEAT PAD PROVIDED AND TYLENOL GIVEN WITH GOOD EFFECT. BP SOFT BUT OTHERWISE VSS. BED IN LOWEST POSITION AND CALL LIGHT IN REACH.
[2023-05-21 19:15] VITALS: BP 116/75
--- NOTE | 2023-05-22 04:22 | NUR ---
CRISTOFER WAS A/O X4 AT START OF SHIFT, PLEASANT AND COOPERATIVE WITH CARE, COMPLAINED OF NECK/BACK PAIN DURING DAY SHIFT, WHICH WAS RELIEVED WITH TYLENOL AND HEAT PAD. NO OTHER COMPLAINTS, SHE HAS BEEN INDEPENDENT IN HER ROOM AND IS RESTING AT THIS TIME WITH CALL LIGHT IN REACH
--- NOTE | 2023-05-22 04:32 | NUR ---
THIS GAMING ASSOCIATE HAS REVIEWED AND AGREES WITH ALL NOTES AND ASSESMENTS BY MITZY WALKER.
[2023-05-22 05:15] VITALS: BP 103/77
[2023-05-22 09:23] VITALS: BP 104/83
[2023-05-22 16:21] VITALS: BP 103/80
--- NOTE | 2023-05-22 16:32 | NUR ---
NO CHANGES THIS SHIFT. PT IS CALM AND COOPERATIVE. R/A. INDEPENDENT IN THE ROOM. PO INTAKE IS GOOD.
[2023-05-22 21:42] VITALS: BP 95/66
--- NOTE | 2023-05-23 03:44 | NUR ---
SHIFT SUMMARY PATIENT A&O X4, CALM AND COOPERATIVE WITH CARE. NO ACUTE EVENTS OVERNIGHT. PATIENT INDEPENDENT IN ROOM AND SLEPT WELL T/O THE NIGHT. PT STATED THAT SHE HAD NO PAIN OR DISCOMFORT. BED KEPT IN THE LOWEST POSITION WITH CALL LIGHT IN REACH. PT ABLE TO USE APPROPRIATELY.
[2023-05-23 05:37] VITALS: BP 108/79
[2023-05-23 09:18] VITALS: BP 106/77
[2023-05-23 15:27] VITALS: BP 109/73
--- NOTE | 2023-05-23 18:30 | NUR ---
SUMMARY- PT A/O X4, VERBAL AND PLEASANT, INDEPENDANT STEADY ON FEET, AMBULATES TO THE BATHROOM. SITS AT EDGE OF BED OR IN CHAIR FOR MEALS. TOLERATING FOOD AND FLUID. EXCITED ABOUT HER NEW APARTMENT, SHOWED RN'S ALL THE PICTURES OF HER NEW LIVING ARRANGEMENTS. WILL REPORT TO NOCS
[2023-05-23 19:15] VITALS: BP 115/85
--- NOTE | 2023-05-24 04:03 | NUR ---
SHIFT SUMMARY PT A7O X4, CALM AND COOPERATIVE WITH CARE. NO ACUTE CHANGES OVERNIGHT. PT INDEPENDENT IN ROOM AND SLEPT MUCH OF THE NIGHT. PT STATED THAT SHE RECEIVED PICTURES OF HER NEW PLACE AND IS REALLY EXCITED TO BE ABLE TO HAVE HER OWN PLACE SOON. BED KEPT IN THE LOWEST POSITION WITH CALL LIGHT IN REACH. PT CALLS APPROPRIATELY.
[2023-05-24 06:32] VITALS: BP 121/76
[2023-05-24 16:29] VITALS: BP 110/83
[2023-05-24 19:46] VITALS: BP 121/89
--- NOTE | 2023-05-24 19:56 | NUR ---
SUMMARY- PT ALERT AND ORIENTED, STEADY ON FEET, INDEPENDANT IN ROOM. ROOM AIR, LUNGS CLEAR. TOLERATING FOOD AND FLUID. AWAITING PLACEMENT TO [facility] MONDAY 05/28. REPORTED TO ARTURO RN
--- NOTE | 2023-05-25 04:13 | NUR ---
SHIFT SUMMARY PATIENT A/Ox4, BRIGHT AFFECT. DENIES PAIN NOR DISCOMFORT. VSS, SPO2 97% ON RA. INDEPENDANT IN ROOM. NO ACUTE CHANGES NOTED OVERNIGHT. BED IN LOW POSITION, CALL LIGHT WITHIN REACH.
[2023-05-25 05:48] VITALS: BP 99/71
[2023-05-25 07:19] VITALS: BP 103/75
--- NOTE | 2023-05-25 18:42 | NUR ---
SHIFT SUMMARY PT REMAINS A&O X4, INDEPENDENT, PLEASANT & COOPERATIVE WITH ALL CARE. NO IV PER MD ORDER. PLANS ARE FOR PLACEMENT LIKELY TO OCCUR ON SUNDAY TO [facility]. PT IS IN AGREEMENT TO PLAN, PT IS ABLE TO MAKE NEEDS KNOWN AND USES CALL LIGHT APPROPRIATELY. BED IN LOW POSITION. WILL OCCASIONALLY AMBULATE HALLWAYS USING FWW, GAIT STEADY & STRONG.
[2023-05-25 20:15] VITALS: BP 119/83
[2023-05-26 05:46] VITALS: BP 103/77
--- NOTE | 2023-05-26 05:58 | NUR ---
SHIFT SUMMARY PATIENT IS A/Ox4, PLEASANT/COOPERATIVE. DENIES PAIN NOR DISCOMFORT. EXPRESSED FRUSTRATION WITH DISCHARGE LIKELY PUT OFF TILL SUNDAY. INDEPENDANT IN ROOM. VSS. NO ACUTE CHANGES NOTED OVERNIGHT. BED LOW, CALL LIGHT WITHIN REACH.
[2023-05-26 07:40] VITALS: BP 98/62
[2023-05-26 15:56] VITALS: BP 107/79
--- NOTE | 2023-05-26 17:16 | NUR ---
SHIFT SUMMARY A&O X 4. VSS. PLEASANT & COOPERATIVE WITH ALL CARE. PT IS INDEPENDENT IN THE ROOM FOR RESTROOM USE. NO IV PER MD ORDER. PT AMBULATES HALLS WITH FWW INDEPENDENTLY, GAIT STEADY & STRONG. APPETITE IS GOOD. DENIES PAIN OR SOB. PLAN IS FOR & PT ANTICIPATES DC TO [facility] THIS NEXT WEEK. PT MAKES ALL NEEDS KNOWN. BED IN LOW POSITION AND CALL LIGHT WITHIN REACH.
[2023-05-26 20:01] VITALS: BP 116/73
--- NOTE | 2023-05-27 04:20 | NUR ---
SHIFT SUMMARY PATIENT ALERT, PLEASANT, BRIGHT AFFECT. EAGER TO BE DISCHARGING SOON. DENIES PAIN NOR DISCOMFORT. NO C/O SOB NOR DIFICULTY BREATHING. VSS, SPO2 >90% ON RA. INDEPENDANT IN ROOM. NO ACUTE CHANGES NOTED OVERNIGHT. BED LOCKED AND IN LOW POSITION, CALL LIGHT WITHIN REACH.
[2023-05-27 07:42] VITALS: BP 100/76
[2023-05-27 14:32] VITALS: BP 109/80
--- NOTE | 2023-05-27 16:55 | NUR ---
SHIFT SUMMARY NO ACUTE CHANGES THIS SHIFT, UNEVENTFUL. PT REQUESTED BOWEL CARE TODAY. SHE TOOK MOM, MIRALAX & 1 TAB SENNAKOT, NO RESULTS OF YET. IS A&O X 4, VSS, IS PLEASANT & COOPERATIVE WITH ALL CARE. IS INDEPENDENT IN THE ROOM FOR RESTROOM USE. PLAN IS FOR DC TO [facility] THIS NEXT WEEK.
[2023-05-27 19:31] VITALS: BP 112/78
--- NOTE | 2023-05-28 04:12 | NUR ---
SHIFT SUMMARY PATIENT A/Ox4, PLEASANT, BRIGHT AFFECT. NO C/O PAIN NOR DISCOMFORT STATED. NO ACUTE CHANGES NOTED OVERNIGHT. ASLEEP MOST OF SHIFT. INDEPENDANT IN ROOM. BED LOCKED AND IN LOW POSITION, CALL LIGHT WITHIN REACH.
[2023-05-28 05:47] VITALS: BP 112/70
[2023-05-28 07:30] VITALS: BP 112/80
--- NOTE | 2023-05-28 11:05 | NUR ---
PT ALERT ORIENTED X3 PLEASANT TALKATIVE. CHEERY, H/R IRREG, NO MURMUR NOTED. NO TELE. NO EDEMA NOTED. LUNGS CLEAR, RESP EASY, UNLABORED. ON R.A. BT X4 STATES HAD LAST BM YEST. VOIDS INDEPENDANTLY. AMBULATES WITH FWW. BED IN LOW POSITION, CALL LITE IN REACH, CALLS APPROP.
[2023-05-28 15:27] VITALS: BP 114/88
--- NOTE | 2023-05-28 17:58 | NUR ---
PT QUITE PLEASANT TODAY. HOPING TO GO HOME SOON. STATES TOLD HER THIS WEEK. STATES FEELS GOOD ABOUT THAT. CONTINUES TO WALK HALLS. NO NEW CONCERNS NOTED. BED IN LOW POSITION, CALL LITE IN REACH CALLS APPROP AND WALKS TO HALLS FOR NEEDS.
[2023-05-28 19:02] VITALS: BP 119/84
--- NOTE | 2023-05-29 04:36 | NUR ---
SHIFT SUMMARY; NO ACUTE CHANGES OVERNIGHT. THE PT IS AXO X3 W/ OCCASSIONAL FORGETFULLNESS. THE PT IS INDEPENDENT IN THE ROOM WITH A FWW. THE PT HAS BEEN SLEEPING IN BED FOR THE ENTIRETY OF THE NIGHT. THE PT DENIES ANY SOB, CHEST PAIN/PRESSURE. N/V OR PAIN THIS SHIFT. CURRENTLY THE PT IS SLEEPING IN BED WITH THE BED IN THE LOWEST POSITION AND THE CALL LIGHT AT BEDSIDE. FIRE SAFETY MAINTAINED T/O THE NIGHT.
[2023-05-29 06:10] VITALS: BP 106/77
[2023-05-29 07:50] VITALS: BP 113/77
[2023-05-29 15:05] VITALS: BP 115/77
--- NOTE | 2023-05-29 17:27 | NUR ---
PT QUITE PLEASANT TODAY. UP ABOUT HALLS WITH FWW INDEPENDANTLY. UNDERSTANDS TO WAIT FOR D/C SOMETIME THIS WEEK. NO C/O PAIN. NO NEW COOMPLAINTS TODAY. BED IN LOW POSITIOIN, CALL LITE IN REACH, CALLS APPROP
[2023-05-29 19:56] VITALS: BP 112/80
[2023-05-30 02:50] VITALS: BP 115/80
--- NOTE | 2023-05-30 04:25 | NUR ---
SHIFT SUMMARY; NO ACUTE CHANGES OVERNIGHT. THE PT IS AXO X3-4 AND INDEPENDENT IN THE ROOM W/ A FWW. THE PT HAS BEEN SLEEPING FOR THE ENTIRETY OF THE NIGHT. THE PT DENIES ANY PAIN, SOB, CHEST PAIN/PRESSURE OR N/V THIS SHIFT. CURRENTLY THE PT IS SLEEPING IN BED WITH THE BED IN THE LOWEST POSITION AND THE CALL LIGHT AT BEDSIDE. FIRE SAFETY MAINTAINED T/O THE NIGHT.
[2023-05-30 08:10] VITALS: BP 105/83
[2023-05-30 14:27] LABS: BASOPHILS ABSOLUTE AUTO 0.03 K/mm3 (0.00-0.23); BASOPHILS PERCENT AUTO 1 % (0-2); EOSINOPHILS ABSOLUTE AUTO 0.07 K/mm3 (0.00-0.68); EOSINOPHILS PERCENT AUTO 1 % (0-6); Hematocrit 35.5 % (33.0-51.0); Hemoglobin 11.4 g/dL (11.5-16.0); IMMATURE GRAN ABSOLUTE AUTO 0.02 K/mm3 (0.00-0.10); IMMATURE GRAN PERCENT AUTO 0 % (0-1); LYMPHOCYTES ABSOLUTE AUTO 1.58 K/mm3 (0.84-5.20); LYMPHOCYTES PERCENT AUTO 31 % (21-46); MONOCYTES ABSOLUTE AUTO 0.29 K/mm3 (0.16-1.47); MONOCYTES PERCENT AUTO 6 % (4-13); Mean Corpuscular HGB 29.7 pg (26.0-34.0); Mean Corpuscular HGB Conc 32.1 g/dL (31.5-36.5); Mean Corpuscular Volume 92 fL (80-100); Mean Platelet Volume 9.9 fL (9.1-12.4); NEUTROPHILS ABSOLUTE AUTO 3.14 K/mm3 (1.96-9.15); NEUTROPHILS PERCENT AUTO 61 % (41-73); Platelet Count 238 K/mm3 (150-400); RDW Coefficient Variation 12.3 % (11.7-14.2); RDW Standard Deviation 42.1 fL (35.1-46.3); Red Blood Cell Count 3.84 M/mm3 (3.80-5.20); White Blood Cell Count 5.13 K/mm3 (4.00-11.30)
[2023-05-30 14:47] LABS: Bun/Creatinine Ratio 21.1 (12.0-20.0); Creatinine, Blood 0.71 mg/dL (0.40-1.00); Potassium, Blood 4.4 mmol/L (3.5-5.5)
[2023-05-30 15:12] VITALS: BP 110/82
--- NOTE | 2023-05-30 16:27 | NUR ---
SHIFT SUMMARY MS PEREZ HAS DENIED ANY PROBLEMS OR CONCERNS TODAY. AMBULATED STEADY AND INDEPENDENTLY IN THE HALLS WITH A WALKER. SHE IS AWAITING TRANSFER TO FACILITY PERHAPS LATER THIS WEEK. CALM AND COOPERATIVE, ORIENTATED AND APPROPRIATE. BED LOW, CALL LIGHT IN REACH.
[2023-05-30 20:17] VITALS: BP 122/83
--- NOTE | 2023-05-31 06:44 | NUR ---
PT A/OX 4. PLEASANT AND COOPERATIVE WITH CARE. NO ACUTE CHANGES TO REPORT. AWAITING RESULTS OF [facility]. PT WAITING ON [facility] FOR PLACEMENT IN [facility] THIS WEEK. PT IS CURRENTLY RESTING WITH BED IN LOWEST POSITION, AND CALL LIGHT WITHIN REACH.
[2023-05-31 07:43] VITALS: BP 99/76
[2023-05-31 15:10] VITALS: BP 127/96
--- NOTE | 2023-05-31 17:01 | NUR ---
SHIFT SUMMARY PT AXO, PLEASANT AND COOPERATIVE WITH CARE THOUGH PT EAGER TO BE DISCHARGED TO [facility]. NO ACUTE CHANGES THIS SHIFT. PT DENIES PAIN, SOB, NV AND IGNITION SOURCES. PT EDUCATED ON FIRE PREVENTION. PT DENIES SMOKING. VSS. BED IN LOW POSITION, CALL LIGHT WITHIN REACH. UP AD JEB INDEPENDENTLY.
[2023-05-31 20:51] VITALS: BP 109/73
--- NOTE | 2023-06-01 03:35 | NUR ---
SHIFT SUMMARY NOC PT A/O X 4. PLEASANT AND COOPERATIVE WITH CARE. NO ACUTE CHANGES TO REPORT. PT STILL WAITING ON GUARDIANSHIP, SO PT CAN DISCHARGE TO [facility]. PT IS CURRENTLY RESTING WITH BED IN LOWEST POSITION, AND CALL LIGHT WITHIN REACH.
--- NOTE | 2023-06-01 03:41 | NUR ---
PT EDUCATED ON [facility] FIRE SAFETY EXPLOSIVE SOURCES/NON SMOKING POLICY AND VERBALIZED UNDERSTANDING.
[2023-06-01 05:04] VITALS: BP 106/77
[2023-06-01 07:25] VITALS: BP 96/78
[2023-06-01 14:49] VITALS: BP 117/84
--- NOTE | 2023-06-01 16:39 | NUR ---
SHIFT SUMMARY: PATIENT A&OX4. CALM, PLEASANT AND COOPERATIVE c CARE. NO NEW ACUTE CHANGES IN PATIENT CONDITION THIS SHIFT. PATIENT AMBULATES IN ROOM AND HALLWAY c FWW INDEPENDENTLY T/O SHIFT. RECEIVED SCHEDULED MEDS PER EMAR. DENIES CP/PRESSURE, SOB, N/V AND GENERALIZED PAIN. VITAL SIGNS REVIEWED. AWAITING FOR SAFE PLACEMENT. NO IV ACCESS PER ORDER. CALL LIGHT IN REACH.
[2023-06-01 19:29] VITALS: BP 114/78
--- NOTE | 2023-06-01 21:57 | NUR ---
REPORT RECEIVED VERIFIED PLEASANT AND INDEPENDANT IN RM. CALL LIGHT WITHIN REACH ASSESSMENT NEGATIVE.
[2023-06-02 04:50] VITALS: BP 101/79
--- NOTE | 2023-06-02 05:41 | NUR ---
SHIFT SUMMARY A/O VSS, NO C/O PAIN PT SHOWING LOTS OF IMPROVMENT. PT SLEPT THROUGH THE SHIFT
[2023-06-02 07:34] VITALS: BP 97/77
--- NOTE | 2023-06-02 16:01 | NUR ---
SHIFT SUMMARY: PATIENT REPORTS OT EPISODE OF PAIN 5/10 TO LEGS AND R ARM, MEDICATED X1 c PO TYLENOL c GOOD EFFECT. OTHERWISE, PATIENT HAS DENIED ANY CONCERNS OR OTHER PROBLEMS THIS SHIFT. PLEASANT AND COOPERATIVE c CARE PROVIDED. PATIENT CONTINUES TO AMBULATES IN THE HALLWAYS AND BACK IN ROOM c FWW INDEPENDENTLY T/O SHIFT. AWAITING FOR SAFE PLACEMENT. VITAL SIGNS REVIEWED. RECEIVED SCHEDULED MEDS PER EMAR. CALL LIGHT IN REACH.
[2023-06-02 16:11] VITALS: BP 107/94
[2023-06-02 19:49] VITALS: BP 117/83
--- NOTE | 2023-06-02 23:40 | NUR ---
REPORT RECEIVED VERIFIED A/O EXCITED ABOUT POSSIBLE DC ON SUNDAY. INDEPENDANT IN RM WILL CALL IF NEEDING ASSISTENCE.
--- NOTE | 2023-06-03 05:38 | NUR ---
SHIFT SUMMARY UNEVENTFUL EVENING PT WAS GIVEN HER NIGHT MEDS AND SLEPT. WILL CONT MONITORING .
[2023-06-03 08:01] VITALS: BP 104/79
--- NOTE | 2023-06-03 15:44 | NUR ---
SHIFT SUMMARY: PATIENT DENIED ANY PROBLEMS OR CONCERNS TODAY. NO NEW ACUTE CHANGES IN PATIENT CONDITION THIS SHIFT. PATIENT CONTINUES TO AMBULATES IN THE HALLWAYS/ROOM c FWW INDEPENDENTLY T/O SHIFT. CALM, PLEASANT AND COOPERATIVE c CARE. AWAITING FOR SAFE PLACEMENT. CALL LIGHT IN REACH.
[2023-06-03 16:24] VITALS: BP 115/84
[2023-06-03 20:20] VITALS: BP 117/84
--- NOTE | 2023-06-04 05:49 | NUR ---
NO ACUTE CHANGES NOTED, AOX4, UP AD JEB WITH WALKER, VSS ON RA DENIES PAIN, SLEEPS MOST OF SHIFT. FIRE SAFETY REVIEWED.
[2023-06-04 07:16] VITALS: BP 110/78
[2023-06-04] MEDS ORDERED: ASPI81CH PO (11:30)
[2023-06-04] MEDS ORDERED: MULVITA PO (11:30)
[2023-06-04] MEDS ORDERED: QUET100 PO (11:31)
[2023-06-04] MEDS ORDERED: SENN187 PO (11:31)
[2023-06-04] MEDS ORDERED: Vitamin D1000 UNI1 PO (11:32)
--- NOTE | 2023-06-04 16:15 | NUR ---
DISCHARGE SUMMARY PATIENT IS ALERT AND ORIENTED. PATIENT HAS HAD NO ACUTE EVENTS THIS SHIFT. PATIENT IS BEING DISCHARGED TO SNF. [facility] IS TRANSFERRING PATIENT. PATIENTS BELONGINGS ARE GATHERED AND SENT WITH PATIENT.
== END 2023-06-04 16:04 | disposition hospice, inpatient (51) | DRG 896 ==
LOC: ER 15:15 → MEDS 23:26 → ENPENDDIS 06-04 09:09 → MEDS 06-04 16:04
PROVIDERS: Emergency Medicine; Family Medicine; Hospitalist; Internal Medicine; ADMIT Internal Medicine
PROC: HZ2ZZZZ Detoxification Services for Substance Abuse Treatment (ICD-10-PCS; principal; 2023-03-15)
DX: F10.239 Alcohol dependence with withdrawal, unspecified (principal); G92.8 Other toxic encephalopathy; N39.0 Urinary tract infection, site not specified; S32.018A Other fracture of first lumbar vertebra, initial encounter for closed fracture; E87.0 Hyperosmolality and hypernatremia; E51.2 Wernicke's encephalopathy; F03.918 Unspecified dementia, unspecified severity, with other behavioral disturbance; F10.27 Alcohol dependence with alcohol-induced persisting dementia; Z66 Do not resuscitate; E87.6 Hypokalemia; E83.42 Hypomagnesemia; E86.0 Dehydration; B95.2 Enterococcus as the cause of diseases classified elsewhere; I11.0 Hypertensive heart disease with heart failure; I50.9 Heart failure, unspecified; F32.A Depression, unspecified; G47.00 Insomnia, unspecified; I48.91 Unspecified atrial fibrillation; F17.210 Nicotine dependence, cigarettes, uncomplicated; S70.02XA Contusion of left hip, initial encounter; S30.1XXA Contusion of abdominal wall, initial encounter; R29.6 Repeated falls; K21.9 Gastro-esophageal reflux disease without esophagitis; D63.8 Anemia in other chronic diseases classified elsewhere; D72.819 Decreased white blood cell count, unspecified; R60.0 Localized edema; E86.9 Volume depletion, unspecified; M79.604 Pain in right leg; W19.XXXA Unspecified fall, initial encounter; Z79.899 Other long term (current) drug therapy; Z87.19 Personal history of other diseases of the digestive system; Z79.01 Long term (current) use of anticoagulants; Z88.5 Allergy status to narcotic agent; Z88.8 Allergy status to other drugs, medicaments and biological substances
CPT/HCPCS: 36415; 51701; 70450; 70551; 71260; 74177; 80048; 80053; 80069; 81001; 81003; 82140; 82607; 82728; 82746; 82947; 83540; 83550; 83690; 83735; 83880; 83930; 83935; 84295; 84300; 84439; 84443; 85014; 85018; 85025; 85027; 85379; 85610; 87077; 87086; 87186; 92526; 92610; 93005; 93010; 93971; 96365-59; 96375-59; 96376-59; 97110; 97110-CQ; 97112; 97116; 97116-CQ; 97129; 97130; 97162; 97166; 97168; 97530; 97530-CQ; 97535; 99285-25; A9270; C9113; G0480; J0295; J0696; J1200; J1630; J1650; J1790; J1940; J2060; J3411; J3475; J3480; J7030; J7042; J7050; J7070; J7120; P9047; Q9967

== ENCOUNTER → 2023-06-07 | Outpatient (CLI) | payer MEDICARE, OTHER ==
[~2023-06-07] MED LIST changes: +ASPI81CH PO; +CHLO25 PO; +FURO20 PO; +MULVITA PO; +POTA10T PO; +QUET100 PO; +SENN187 PO; +VITAMIN B-1100 M1 PO; +Vitamin D1000 UNI1 PO
[2023-06-07 17:34] LABS: Source, Urine Voided
[2023-06-07 17:58] LABS: Appearance, Urine Hazy (Clear); Bilirubin, Urine Neg (Neg); Blood, Urine Neg (Neg); Color, Urine Yellow (P-Yellow); Glucose Qualitative, Urine Neg (Neg); Ketones, Urine Neg (Neg); Leukocyte Esterase, Urine 1+ (Neg); Nitrite, Urine Neg (Neg); Protein, Urine 1+ (Neg); Urobilinogen, Urine NORM (Normal)
[2023-06-07 18:07] LABS: Bacteria Many /hpf; Red Blood Cells, Urine 0-2 /hpf (0-2); Squamous Epithelial Cells Many /hpf (Few)
== END | disposition home or self-care (01) ==
LOC: LAB SHORT 17:31 → LAB 17:31
PROVIDERS: Physician Assistant Medical
DX: R35.0 Frequency of micturition (principal)
CPT/HCPCS: 81001; 87086

== ENCOUNTER → 2024-05-31 | Outpatient (CLI) | payer MEDICARE, OTHER ==
[2024-05-31 13:22] LABS: Appearance, Urine Clear (Clear); Bilirubin, Urine Neg (Neg); Blood, Urine Neg (Neg); Color, Urine Yellow (P-Yellow); Glucose Qualitative, Urine Neg (Neg); Ketones, Urine Neg (Neg); Leukocyte Esterase, Urine 1+ (Neg); Nitrite, Urine Neg (Neg); Protein, Urine Neg (Neg); Specific Gravity, Urine 1.015 (1.003-1.022); Urobilinogen, Urine NORM (Normal)
[2024-05-31 13:44] LABS: Bacteria Mod /hpf; Red Blood Cells, Urine 0-2 /hpf (0-2); Squamous Epithelial Cells Few /hpf (Few)
== END ==
LOC: LAB 09:30 → LAB SHORT 09:30
PROVIDERS: Physician Assistant Medical
DX: N39.0 Urinary tract infection, site not specified (principal)
CPT/HCPCS: 81001; 87086